=== PATIENT | female | born 1985 | race Caucasian/White ===

== ENCOUNTER 2022-12-20 08:50 | Inpatient (IN) | payer OTHER, SELFPAY ==
[2022-12-20] VITALS (21 sets, daily range): BP systolic 135–153; BP diastolic 67–92; PULSE 87–102; RESP 13–21; TEMP 36.4–36.8; O2SAT 88–98; BMI 46.4; BMI 46.3
--- NOTE | ~2022-12-20 | XR_ITS ---
XR chest 1V portable DATE: 12/23/2022 05:53 INDICATION: Pneumonia TECHNIQUE: Portable upright AP chest on 12/23/2022 at 0537 hours COMPARISON: 12/16/2022 2 CTA chest 12/20/2022 2 view chest FINDINGS: Patchy infiltrates are noted, more prominent in the lower lung zones, especially on the lef t. Normal heart size. No significant pleural effusion is evident. No pneumothorax. IMPRESSION: Patchy bilateral pulmonary infiltrates predominantly in the lower lung zones, left greate r than right Reviewed, dictated and finalized at location A. IMPRESSION: Patchy bilateral pulmonary infiltrates predominantly in the lower l nba zones, left greater than right
--- NOTE | ~2022-12-20 | CT_ITS ---
EXAMINATION: CTA chest PE protocol DATE: 12/20/2022 12:07 CDT INDICATION: Dyspnea. Elevated d-dimer. TECHNIQUE: Computed tomographic angiography (CTA) of the chest was performed with 100 mL Omnipaque-35 0 intravenous contrast. The dose-length product was 1096.44 mGy-cm. Maximum intensity projection 3D-r econstructions of the aorta and other arteries were constructed by the technologist on a separate wor kstation. COMPARISON: None. FINDINGS: Study technically limited for evaluation of pulmonary embolism due to contrast bolus timing . No large central pulmonary embolism. Heart size normal. No significant pleural or pericardial effus ion. Fatty infiltration of the liver. Status post cholecystectomy. There are extensive patchy groundg lass opacities with areas of reticular nodularity particularly in the lower lobes, compatible with pn eumonia. No significant effusion. No pneumothorax. Mild mediastinal lymphadenopathy, likely reactive. IMPRESSION: 1. Extensive patchy groundglass opacities and reticulonodular infiltrates, compatible with pneumonia. Recommend follow-up CT at 6-weeks following appropriate therapy to assess for resolution. 2: Technically limited study for evaluation of pulmonary embolism. No large central pulmonary emboli sm. 3: Thoracic lymphadenopathy, likely reactive. Reviewed, dictated and finalized at location L. IMPRESSION: 1. Extensive patchy groundglass opacities and reticulonodular infiltrates, comp atible with pneumonia. Recommend follow-up CT at 6-weeks following appropriate therapy to assess for resolution. 2: Technically limited study for evaluation of pulmonary embolism. No large ce ntral pulmonary embolism. 3: Thoracic lymphadenopathy, likely reactive.
--- NOTE | ~2022-12-20 | XR_ITS ---
XR chest 2V 12/20/2022 09:44 Indication: Cough and dyspnea. Fever. Procedure: 2 view chest Comparison: No prior studies for comparison. Findings: There is a nodule in the left lower chest. Correlation with CT chest recommended. No focal pneumonia, edema, pleural effusion or pneumothorax. Impression: 1: Left lower lung nodule. Follow-up CT chest recommended. Reviewed, dictated and finalized at location L. Impression: 1: Left lower lung nodule. Follow-up CT chest recommended.
--- NOTE | 2022-12-20 09:19 | ECG_ITS ---
Measurements Intervals [place] Rate: 92 P: 53 IN: 179 QRS: 23 QRSD: 108 T: 34 QT: 364 QTc: 451 Interpretive Statements SINUS RHYTHM NONSPECIFIC T-WAVE ABNORMALITY NO PREVIOUS ECG AVAILABLE FOR COMPARISON Electronically Signed On 12-20-2022 11:01:50 CDT by Donell Sanchez M.D.
--- NOTE | 2022-12-20 09:28 | ED.GENADULT ---
HPI - General Adult General Chief complaint: Shortness of Breath/Dyspnea <Eloy Cunningham PA-C - Last Filed: 12/20/22 18:27> Stated complaint: SOB, hypoxic <Eloy Cunningham PA-C - Last Filed: 12/20/22 18:27> Time Seen by Provider: 12/20/22 09:01 <Eloy Cunningham PA-C - Last Filed: 12/20/22 18:27> Source: patient <KEELEY Sim Last Filed: 12/20/22 18:27> Mode of arrival: ambulatory <Eloy Cunningham PA-C - Last Filed: 12/20/22 18:27> Limitations: no limitations <KEELEY Sim Last Filed: 12/20/22 18:27> History of Present Illness HPI narrative: This is a 37-year-old female who presents to the ED with chief complaint of shortness of breath and cough for the last 3-1/2 weeks and worse today. Patient states that she has been coughing up yellowish phlegm. Denies any hemoptysis. States that her chest feels tight and she has pain when she coughs. Patient reports that she was initially seen by urgent care 3 and half weeks ago and has been on a couple of rounds of steroids and had an initial round of azithromycin. She states her symptoms have only been getting worse since initially being seen. Her PCP referred to sales specialist due to her wheezing. She states she has been doing albuterol treatments 2 times a day with minimal relief. Reports a mild fever of 99.4 this morning. Additionally patient states that she was diagnosed with diabetes about 6 weeks ago. She states that she is not on any diabetic medications as she had difficulties getting in with the adult care manager referred by her PCP. Denies headache, LOC, <KEELEY Sim Last Filed: 12/20/22 18:27> Related Data Home medications: Home Medications Medication Instructions Recorded Confirmed albuterol sulfate 90 mcg/actuation 2 - 4 puff inhalation Q4-6H PRN 12/20/22 12/20/22 aerosol inhaler Shortness Of Breath Or Wheezing citalopram 40 mg tablet 40 mg PO HS 12/20/22 12/20/22 codeine 10 mg-guaifenesin 100 mg/5 5 ml PO PRN Cough 12/20/22 mL oral liquid <Eloy Cunningham PA-C - Last Filed: 12/20/22 18:27> Allergies/adverse reactions: Allergies Allergy/AdvReac Type Severity Reaction Status Date / Time amoxicillin Allergy Rash Verified 12/20/22 15:23 nickel Allergy Rash Verified 12/20/22 15:23 poppyseed oil Allergy Nausea and Verified 12/20/22 15:23 Vomiting <Eloy Cunningham PA-C - Last Filed: 12/20/22 18:27> Review of Systems Review of Systems: All systems as dictated in HPI <Eloy Cunningham PA-C - Last Filed: 12/20/22 18:27> [facility] Social History Social History: Social History Smoking status: Never smoker Second hand tobacco smoke exposure: No Alcohol intake: never Substance use: never Lack of Transportation: No Lack of Food: Sometimes True Current Housing: I Have Housing Concerned About Future Housing: No Difficulty Paying Gas/Electric Bills: YES Difficulty Paying for Meds: No Currently Unemployed: No Education: Associate Degree Difficulty w/ Childcare or Family Care: No Spiritual care concerns: No <Eloy Cunningham PA-C - Last Filed: 12/20/22 18:27> Exam Narrative: GENERAL: Well-appearing, well-nourished, and in no acute distress. HEAD: Normocephalic, atraumatic. EYES: PERRLA and EOMI. ENT: Nares clear, no rhinorrhea or epistaxis. Mucous membranes moist. Oropharynx without tonsillar hypertrophy exudate or other lesions. Hoarse voice. NECK: Supple. No adenopathy or masses. CHEST: Sats 90% on room air. Speaks in 3-4 word sentences. No accessory muscle use. Coughing during exam. Coarse crackles/rhonchi heard bilaterally. HEART: Regular rate and rhythm. No murmur heard. Normal peripheral pulses. ABDOMEN: Soft, nontender, nondistended, normal active bowel sounds. MSK: Normal range of motion. No edema. SKIN: Warm, dry, no rash. NEURO: Alert and oriented x3. No focal deficits. PSYCH: Normal mood and affect. <Eloy Cunningham
[2022-12-20 09:30] LABS: Basophils Absolute Auto 0.1 K/mm3 (0.0-0.1); Basophils Percent Auto 0.4 % (0.2-1.2); Eosinophils Absolute Auto 0.2 K/mm3 (0-0.3); Eosinophils Percent Auto 1.2 % (0-4.4); Hematocrit 37.8 % (37.0-47.0); Hemoglobin 11.9 g/dL (12.0-15.0); Immature Granulocyte Absolute 0.05 K/mm3 (0.00-0.031); Immature Granulocyte Percent A 0.4 % (0-0.5); Lymphocytes Absolute Auto 2.45 K/mm3 (0.9-3.2); Lymphocytes Percent Auto 17.7 % (18.3-44.2); Mean Corpuscular HGB Conc 31.5 g/dl (32-36); Mean Corpuscular Hemoglobin 28.1 pg (26-34); Mean Corpuscular Volume 89.4 fl (80-100); Mean Platelet Volume 9.6 fl (7.4-10.4); Monocytes Absolute Auto 0.7 K/mm3 (0.1-0.6); Monocytes Percent Auto 5.4 % (2.6-8.5); Neutrophils Absolute Auto 10.4 K/mm3 (1.3-6.7); Neutrophils Percent Auto 74.9 % (45.5-73.1); Platelet Count Result 294 k/mm3 (150-375); Red Blood Count 4.23 M/mm3 (4.2-5.4); Red Cell Distribution Width 13.9 % (11.5-14.5); White Blood Count 13.8 K/mm3 (4.5-10.0)
[2022-12-20 09:40] LABS: Alanine Aminotransferase 47 U/L (6-35); Albumin Level 3.8 g/dL (3.5-5.1); Alkaline Phosphatase 162 U/L (38-126); Anion Gap 6 mmol/L (8-16); Aspartate Amino Transferase 60 U/L (14-36); Bilirubin,Total 0.5 mg/dL (0.2-1.3); Blood Urea Nitrogen 7 mg/dL (7-17); Calcium 8.2 mg/dL (8.4-10.2); Carbon Dioxide 29 mmol/L (22-30); Chloride 98 mmol/L (98-107); Estimated CRCL calculation 169 ml/min; Estimated Glomerular Filt Rate > 60; Glucose 228 mg/dL (65-110); Magnesium 1.5 mg/dL (1.6-2.3); Potassium 3.4 mmol/L (3.4-5.0); Prothrombin Time 13.6 Seconds (11.1-14.7); Sodium 133 mmol/L (137-145)
[2022-12-20 09:41] LABS: Partial Thromboplastin Time 30.9 SECONDS (22.3-36.8)
[2022-12-20 09:45] LABS: D Dimer 0.75 ug/mL (<0.48)
[2022-12-20 09:52] LABS: Troponin I < 0.012 ng/mL (0.000-0.034)
[2022-12-20] MEDS: MAGNESIUM SULF 1 GM/D5W 100 ML 1 GM/100 ML BAG IVPB (10:05)
[2022-12-20 10:55] LABS: Appearance Urine Cloudy (Clear); Bacteria Urine None Seen /hpf; Bilirubin Urine Negative (Negative); Blood Urine Negative (Negative); Color Urine Dark Yellow (Yellow); Glucose Urine UA Negative (Negative); Ketones Urine Negative (Negative); Leukocyte Esterase Ur Trace LEU/UL (Negative); Nitrate Urine Negative (Negative); Non Pathogenic Casts 0-2; Protein Urine Trace mg/dL (Negative); RBC Urine 0-2 /hpf (0-2); Specific Grav Ur 1.024 (1.001-1.035); Squamous Epithelial Cell Urine Few /hpf (Few); Urobilinogen Urine 0.2 mg/dL (<2.0)
[2022-12-20 11:06] LABS: Add Urine Microscopic? YES
[2022-12-20 11:39] LABS: Influenza A QL RT-PCR Negative (Negative); Influenza B QL RT-PCR Negative (Negative); RSV RNA, RT-PCR Negative (Negative); SARS-CoV-2 RNA PCR Negative (Negative)
[2022-12-20] MEDS: ALBUTEROL SULFATE NEB 2.5 MG/3 ML INH INHALATION ×3 (13:02→20:05)
--- NOTE | 2022-12-20 14:22 | ADMGEN ---
This patient, Marge García, was admitted to Medical Room 252-. Patient/family oriented to hospital policies and general routines including ID bracelet, bed and alarms, visiting hours, pain management, procedures, bathroom and other care routines, personal items, smoking policy, room service/diet, and visiting hours. Information on how to activate the Rapid Response Team has been discussed. Patient/Family are encouraged to report perceived risks to care and to ask questions if they do not understand what they are told or what they should do.
[2022-12-20 14:30] LABS: Hemoglobin A1C 8.2 % (<5.7)
[2022-12-20] MEDS: SODIUM CHLORIDE 0.9% IV 1,000 ML 125 ML IV CONT (15:30)
[2022-12-20] MEDS: levoFLOXacin 750 MG/D5W 150 ML 750 MG/150 ML BAG 100 MG IVPB (15:31)
[2022-12-20] MEDS: methylPREDNISolone SOD SUCC 40 MG VIAL IV PUSH (15:31)
--- NOTE | 2022-12-20 16:02 | PM.IMHP ---
H&P: HPI History of Present Illness Date/Time: 12/20/22 12:50 Chief Complaint: Cough and shortness of breath. Narrative: This is a very pleasant 37-year-old female with depression, anxiety, and very recent diagnosis of diabetes who presented to the emergency department via private vehicle from home for evaluation of cough and shortness of breath. The patient provides the following history. She has not felt well for upwards of 3.5 weeks with a productive cough and increasing shortness of breath on lesser and lesser exertion. She was evaluated urgent care not long after her symptoms started and she was prescribed a round of steroids and a Z-Luigi. She did not finish her antibiotic but she did finish the steroids without much benefit. She saw her primary care provider about a week ago and was prescribed another round of steroids and albuterol inhaler. She was also referred to the pulmonology group due to concerns for underlying asthma or the like. Unfortunately the 2nd round of steroids have not helped and she has continued wheezing and cough which is productive of copious amounts yellow phlegm. Delsym and Mucinex provide her with only mild symptom relief. Her appetite has also been poor and she has had some episodes of nausea and vomiting the last several days. Her and 1 of her children have mild coughs but her symptoms are not near severe. She has had some sweats but denies fever. She has discomfort around the ribs due to coughing but she denies overt chest chest pain or pleuritic pain. She has not had diarrhea. No recent travel or known sick contacts. She denies dysphagia and concerns for aspiration. She has seasonal allergies and it is not unusual for her to developed cold-like symptoms or even get pneumonia this time of year. She has never been diagnosed with asthma with the like. She and her previously run to the home that had black mold in the ceiling above there bed but they have been in their new home for the past 1 year. No chemical or animal exposure aside from a cat and dog which they have been home. She was afebrile on arrival to the emergency department with stable vital signs. Preliminary workup was significant for leukocytosis with a WBC count of 13.8, D-dimer 0.75, glucose 228, mildly elevated LFTs, and magnesium of 1.5. She tested negative for influenza, RSV, and COVID. Chest CTA showed extensive patchy ground-glass opacities and reticular nodule infiltrates compatible with pneumonia. She received a dose of levofloxacin and she is being admitted in this setting for further treatment. Review of Systems Review of Systems: Twelve systems were reviewed and are negative except for as per HPI. [facility] Past Medical History Medical History (Updated 12/20/22 @ 22:14 by Zuleika Moses PA-C) Depression with anxiety Type 2 diabetes mellitus Surgical History Surgical History (Updated 12/20/22 @ 22:11 by Zuleika Moses PA-C) History of cholecystectomy (01/2017) History of dilation and curettage (05/2018) Family History Family History Other Family history non-contributory Social History Social History (Updated 12/20/22 @ 22:12 by Zuleika Moses PA-C) Social History: Surrogate medical decision maker: Ramy García, spouse. Code status: Full code. Smoking status: Never smoker Second hand tobacco smoke exposure: No Alcohol intake: never Substance use: never Lack of Transportation: No Lack of Food: Sometimes True Current Housing: I Have Housing Concerned About Future Housing: No Difficulty Paying Gas/Electric Bills: YES Difficulty Paying for Meds: No Currently Unemployed: No Education: Associate Degree Difficulty w/ Childcare or Family Care: No Additional living arrangements comments: Lives with spouse and 2 young children ages 4 and 7. Additional occupation/education comments: Works at a [employer]. Spiritual care concern
[2022-12-20] MEDS: IPRATROPIUM BR 0.02% INH SOLN 0.5 MG/2.5 ML VIAL INHALATION ×2 (16:20→20:05)
[2022-12-20 17:20] LABS: Glucose Point of Care 309 mg/dl (65-105)
[2022-12-20] MEDS: AZITHROMYCIN 500 MG/NS 250 ML 500 MG/250 ML BAG 250 MG IVPB (17:22)
[2022-12-20] MEDS: INSULIN ASPART (*BKC) 100 UNITS/ML SUB-Q ×2 (17:25→21:19)
--- NOTE | 2022-12-20 18:20 | PC.NURSE ---
On 12/20/22, the Licence pending nurse, Susy Farrell, provided care and completed [facility] documentation on this patient. I have reviewed the Licence pending nurse's documentation and agree with the findings.
[2022-12-20 20:05] LABS: Glucose Point of Care 304 mg/dl (65-105)
[2022-12-20] MEDS: guaiFENesin 12 HR 600 MG TABCR PO (21:20)
[2022-12-20] MEDS: ENOXAPARIN 40 MG/0.4 ML SYRINGE SUB-Q (21:21)
[2022-12-21] VITALS (19 sets, daily range): BP systolic 131–142; BP diastolic 69–76; PULSE 79–98; RESP 16–20; TEMP 36.3–36.6; O2SAT 93–95
[2022-12-21] MEDS: ALBUTEROL SULFATE NEB 2.5 MG/3 ML INH INHALATION ×6 (00:38→20:00)
[2022-12-21] MEDS: IPRATROPIUM BR 0.02% INH SOLN 0.5 MG/2.5 ML VIAL INHALATION ×6 (00:38→20:00)
[2022-12-21] MEDS: guaiFENesin/DEXTROMETHORPHAN 10 ML UDC PO (03:14)
[2022-12-21] MEDS: SODIUM CHLORIDE 0.9% IV 1,000 ML 125 ML IV CONT (03:57)
[2022-12-21 05:31] LABS: Basophils Percent Auto 0.2 % (0.2-1.2); Hematocrit 35.8 % (37.0-47.0); Hemoglobin 11.1 g/dL (12.0-15.0); Immature Granulocyte Absolute 0.06 K/mm3 (0.00-0.031); Immature Granulocyte Percent A 0.5 % (0-0.5); Lymphocytes Absolute Auto 1.48 K/mm3 (0.9-3.2); Lymphocytes Percent Auto 13.5 % (18.3-44.2); Mean Corpuscular Hemoglobin 27.9 pg (26-34); Mean Corpuscular Volume 89.9 fl (80-100); Mean Platelet Volume 9.9 fl (7.4-10.4); Monocytes Absolute Auto 0.3 K/mm3 (0.1-0.6); Monocytes Percent Auto 2.5 % (2.6-8.5); Neutrophils Absolute Auto 9.1 K/mm3 (1.3-6.7); Neutrophils Percent Auto 83.3 % (45.5-73.1); Platelet Count Result 273 k/mm3 (150-375); Red Blood Count 3.98 M/mm3 (4.2-5.4); Red Cell Distribution Width 13.6 % (11.5-14.5)
[2022-12-21 05:37] LABS: Alanine Aminotransferase 42 U/L (6-35); Albumin Level 3.4 g/dL (3.5-5.1); Alkaline Phosphatase 114 U/L (38-126); Anion Gap 0 mmol/L (8-16); Aspartate Amino Transferase 39 U/L (14-36); Bilirubin,Total 0.5 mg/dL (0.2-1.3); Blood Urea Nitrogen 5 mg/dL (7-17); Calcium 8.1 mg/dL (8.4-10.2); Carbon Dioxide 31 mmol/L (22-30); Chloride 100 mmol/L (98-107); Estimated CRCL calculation 204 ml/min; Estimated Glomerular Filt Rate > 60; Glucose 305 mg/dL (65-110); Magnesium 2.2 mg/dL (1.6-2.3); Potassium 3.9 mmol/L (3.4-5.0); Sodium 131 mmol/L (137-145)
--- NOTE | 2022-12-21 07:46 | PM.IMPN ---
Progress Note: A&P Assessment and Plan (1) Community acquired pneumonia: Qualifiers: Laterality: unspecified laterality Qualified Code(s): J18.9 - Pneumonia, unspecified organism Code(s): J18.9 - Pneumonia, unspecified organism Status: Acute Assessment and Plan: CT with patchy ground glass opacities and reticulonodular infiltrates. -started on azithromycin and Rocephin -sputum culture pending -afebrile. Requiring 2 L NC, saturations 94%. -Wheezing present. PO prednisone ordered starting today after 1 round of Solu-medrol on admission -Albuterol nebulizers scheduled Q 4 hours -IS, pep, and CPT ordered -acute respiratory panel negative for flu, RSV, COVID -consult pulmonology and recommendations are appreciated (2) Type 2 diabetes mellitus: Qualifiers: Diabetes mellitus long term care administrator insulin use: without long term care administrator use Code(s): E11.9 - Type 2 diabetes mellitus without complications Status: Acute Assessment and Plan: Hemoglobin A1c 8.2 -accu checks -sliding scale insulin -currently not on home regimen Subjective Date/time seen: 12/21/22 07:46 Interval history: This is a 37-year-old female with a PMH of depression, anxiety, and recently diagnosed with DM. She presents with a productive cough and increasing shortness of breath for the last 3.5 weeks. She has recently received a z-kev and two rounds of steroids. Her chest CTA showed extensive patchy ground-glass opacities and reticular nodule infiltrates compatible with pneumonia. She is being admitted for pneumonia with treatment of antibiotics. Interval history: 12/21: Patient is seen today resting in bed with her at the bedside. She is on 2 L nasal cannula and does not appear in acute respiratory distress. She does appear like she is not feeling well. She says that she has shortness of breath with exertion, productive cough, and night sweats. She denies headache, dizziness, nausea, vomiting, diarrhea, constipation. Initial respiratory panel was negative for viral agents. Repeat panel today and will also obtain a repeat sputum sample for AFB culture. Review of Systems Review of Systems: All systems reviewed & are unremarkable except as noted in HPI and below Exam Narrative: General: well-nourished, ill-appearing 37-year-old female, sitting up in bed, comfortable, NARD Neuro: awake, alert and oriented x4, speech clear, no focal neuro deficits noted HEENMT: normocephalic, atraumatic, EOMI, sclerae anicteric, moist oral mucosa, facial flushing Respiratory: coarse with rhonchi bilaterally with expiratory wheeze, nonlabored breathing Cardio: regular rate, regular rhythm with S1-S2 Abdomen: nondistended, normoactive bowel sounds, soft, nontender to palpation Extremities: no edema, erythema, or tenderness to palpation, DP pulses 2+ bilaterally Skin: no rashes or lesions, warm and dry, facial flushing Psych: appropriate mood and affect, judgment and insight intact Objective Data Vital Signs Vital Signs: Vital Signs - 24 hr 12/20/22 08:56 12/20/22 09:11 12/20/22 09:05 Temperature 98.1 F Pulse Rate 96 Respiratory Rate 16 Blood Pressure 147/67 H Pulse Oximetry 91 90 91 Oxygen Delivery Room Air Room Air Oxygen Flow Rate Fraction of Inspired Oxygen 12/20/22 09:07 12/20/22 09:15 12/20/22 09:17 Temperature Pulse Rate 102 H 95 89 Respiratory Rate 20 21 H 13 Blood Pressure 152/90 H 143/88 H Pulse Oximetry 93 90 91 Oxygen Delivery Oxygen Flow Rate Fraction of Inspired Oxygen 12/20/22 09:30 12/20/22 09:32 12/20/22 10:06 Temperature Pulse Rate 96 100 100 Respiratory Rate 20 19 18 Blood Pressure 143/68 H Pulse Oximetry 92 Oxygen Delivery Oxygen Flow Rate Fraction of Inspired Oxygen 12/20/22 13:02 12/20/22 13:09 12/20/22 13:00 Temperature Pulse Rate 98 98 Respiratory Rate 15 16 Blood Pressure 137/92 H Pulse Ox
--- NOTE | 2022-12-21 08:36 | PM.CNPUL ---
Assessment and Plan Assessment and plan (1) Community acquired pneumonia: Code(s): J18.9 - Pneumonia, unspecified organism Status: Acute Assessment and Plan: This 37-year-old female presented with a 3 week history of cough sputum production wheezing shortness of breath. Chest imaging studies showed extensive lung infiltrates consisting of mostly centrilobular nodules and tree-in-bud pattern and rare patchy infiltrates. These findings in conjunction with the patient's clinical history suggest lower respiratory tract infection possibly infectious bronchiolitis, due to viral bacterial or atypical organisms. In view of similar illness in family members this could be due to mycoplasma pneumonia. Differential diagnosis also includes atypical mycobacterial infection especially with history of chronic night sweats and evidence of bronchial wall thickening on chest CT. Patient seems to be improving on current regimen of ceftriaxone, azithromycin, short-acting bronchodilators and oral steroids. Plan: Will continue with current antibiotic regimen, short-acting bronchodilators oral steroids and DVT prophylaxis. Repeat PCR testing for viral agents pending. Will obtain sputum for AFB culture as atypical mycobacterial infection needs to be excluded. Patient will need to have outpatient studies to exclude intermittent asthma. (2) Depression with anxiety: Code(s): F41.8 - Other specified anxiety disorders Status: Acute History of Present Illness History of Present Illness Consult date: 12/21/22 Chief complaint: community acquired pneumonia,hypoxia Narrative: This 37-year-old female presented with a 3 week history of cough, chest congestion and shortness of breath. The patient was in her usual state of health until approximately 3 weeks ago when she started to have chest congestion cough productive of yellow phlegm. Around the same time her children were sick with similar respiratory illness. The patient was initially treated with antibiotics after she was evaluated at a local urgent care center. The patient did not improve and was then evaluated by her primary care provider who started her on prednisone tapering regimen and albuterol treatments. She also noticed some shortness of breath and and drop in her oxyhemoglobin saturation down to 88%. Patient denied having fever chills hemoptysis or chest pain. Upon questioning she admitted having night sweats for the last 2 years. Past medical history is also significant for mild intermittent asthma based on frequent symptoms such as wheezing for which she was using p.r.n. rescue inhalers. She never had pulmonary function testing or chest x-rays. Recently she was diagnosed with diabetes mellitus. She also has history of anxiety/depression. On evaluation in the emergency room she was found to have extensive infiltrates on chest CT consisting of centrilobular nodules and tree-in-bud pattern. In addition she had a confluence of infiltrates especially in the left lower lobe. Segmental bronchi appeared with thickened wall. she had no evidence of pulmonary embolism. Patient was started on ceftriaxone and Zithromax, oral steroids and nebulized short-acting bronchodilators. This morning she breathes better. She has a dry cough but no sputum production. Review of Systems Review of Systems: Patient reports no significant weight changes. She has no orthopnea. She has no chest pain. She has had a history of intermittent wheezing approximately 2 to 3 times a year for which she was using rescue inhalers. She attributed the wheezing to possible allergies. She has had soft stools. She has no urinary complaints. She has no joint pain. She has an eczematous rash on dorsum of the right foot. She has history of anxiety depression. [facility] Past Medical History Medical History (Updated 12/20/22 @ 22:14 by Zuleika Moses PA-C) Depression with anxiety Type 2 diabetes mellitus Surgic
[2022-12-21 08:47] LABS: Glucose Point of Care 243 mg/dl (65-105)
[2022-12-21] MEDS: ENOXAPARIN 40 MG/0.4 ML SYRINGE SUB-Q ×2 (08:57→21:18)
[2022-12-21] MEDS: guaiFENesin 12 HR 600 MG TABCR PO ×2 (08:57→21:18)
[2022-12-21] MEDS: INSULIN ASPART (*BKC) 100 UNITS/ML SUB-Q ×5 (08:57→21:20)
[2022-12-21] MEDS: predniSONE 20 MG TABLET 40 MG PO (08:57)
[2022-12-21 12:03] LABS: Glucose Point of Care 279 mg/dl (65-105)
[2022-12-21] MEDS: SODIUM CHLORIDE 0.9% IV 1,000 ML 75 ML IV CONT (12:22)
[2022-12-21] MEDS: AZITHROMYCIN 500 MG/NS 250 ML 500 MG/250 ML BAG 250 MG IVPB (13:44)
[2022-12-21 17:12] LABS: Glucose Point of Care 366 mg/dl (65-105)
[2022-12-21 19:35] LABS: Influenza A QL RT-PCR Negative (Negative); Influenza B QL RT-PCR Negative (Negative); RSV RNA, RT-PCR Negative (Negative); SARS-CoV-2 RNA PCR Negative (Negative)
[2022-12-21] MEDS: CITALOPRAM HYDROBROMIDE 20 MG TABLET 40 MG PO (21:18)
[2022-12-21] MEDS: INSULIN GLARGINE (*BKC) 100 UNITS/ML 10 UNITS SUB-Q (21:19)
[2022-12-21 21:35] LABS: Glucose Point of Care 255 mg/dl (65-105)
[2022-12-22] VITALS (16 sets, daily range): BP systolic 145–152; BP diastolic 76–89; PULSE 73–116; RESP 18–20; TEMP 36.6; O2SAT 91–96
[2022-12-22] MEDS: SODIUM CHLORIDE 0.9% IV 1,000 ML 75 ML IV CONT (03:47)
[2022-12-22] MEDS: SODIUM CHLOR 3% 15 ML NEB (RESPIRATORY THERAPY) 6 ML INHALATION (04:58)
[2022-12-22] MEDS: ALBUTEROL SULFATE NEB 2.5 MG/3 ML INH INHALATION ×6 (04:58→20:36)
[2022-12-22] MEDS: IPRATROPIUM BR 0.02% INH SOLN 0.5 MG/2.5 ML VIAL INHALATION ×6 (04:58→20:36)
--- NOTE | 2022-12-22 07:49 | PM.IMPN ---
Progress Note: A&P Assessment and Plan (1) Community acquired pneumonia: Qualifiers: Laterality: unspecified laterality Qualified Code(s): J18.9 - Pneumonia, unspecified organism Code(s): J18.9 - Pneumonia, unspecified organism Status: Acute Assessment and Plan: CT with patchy ground glass opacities and reticulonodular infiltrates. -started on azithromycin and Rocephin -sputum culture pending, awaiting AFB as well -afebrile, off oxygen -Wheezing resolved, PO prednisone ordered starting today after 1 round of Solu-medrol on admission -Albuterol nebulizers scheduled Q 4 hours -IS, pep, and CPT ordered -acute respiratory panel negative for flu, RSV, COVID -consult pulmonology and recommendations are appreciated Urine culture growing enterococcus species but U/A did not appear infected and patient has no complaints of UTI. Regardless, patient is being covered with Rocephin for pneumonia. (2) Type 2 diabetes mellitus: Qualifiers: Diabetes mellitus intermediate card tender insulin use: without intermediate card tender use Code(s): E11.9 - Type 2 diabetes mellitus without complications Status: Acute Assessment and Plan: Hemoglobin A1c 8.2 -accu checks -sliding scale insulin increased to moderate regimen -added 10 units of lantus at HS. Fasting glucose on am labs was 133. -currently not on home regimen Plan continue IV antibiotics await AFB culture Appreciate guidance from pulmonology Subjective Date/time seen: 12/22/22 07:49 Interval history: This is a 37-year-old female with a PMH of depression, anxiety, and recently diagnosed with DM. She presents with a productive cough and increasing shortness of breath for the last 3.5 weeks. She has recently received a z-kev and two rounds of steroids. Her chest CTA showed extensive patchy ground-glass opacities and reticular nodule infiltrates compatible with pneumonia. She is being admitted for pneumonia with treatment of antibiotics. Interval history: 12/21: Patient is seen today resting in bed with her at the bedside. She is on 2 L nasal cannula and does not appear in acute respiratory distress. She does appear like she is not feeling well. She says that she has shortness of breath with exertion, productive cough, and night sweats. She denies headache, dizziness, nausea, vomiting, diarrhea, constipation. Initial respiratory panel was negative for viral agents. Repeat panel today and will also obtain a repeat sputum sample for AFB culture. 12/22: Mildly improved since yesterday. She is no longer requiring oxygen. Her shortness of breath is less but she still has a cough with poor production of sputum. No longer wheezing. Her WBC count remains at 11.3 but she has been afebrile. Review of Systems Review of Systems: All systems reviewed & are unremarkable except as noted in HPI and below Exam Narrative: General: well-nourished, ill-appearing 37-year-old female, sitting up in bed, comfortable, NARD Neuro: awake, alert and oriented x4, speech clear, no focal neuro deficits noted HEENMT: normocephalic, atraumatic, EOMI, sclerae anicteric, moist oral mucosa, facial flushing Respiratory: coarse with rhonchi bilaterally without expiratory wheeze, nonlabored breathing, room air Cardio: regular rate, regular rhythm with S1-S2 Abdomen: nondistended, normoactive bowel sounds, soft, nontender to palpation Extremities: no edema, erythema, or tenderness to palpation, DP pulses 2+ bilaterally Skin: no rashes or lesions, warm and dry, facial flushing Psych: appropriate mood and affect, judgment and insight intact Objective Data Vital Signs Vital Signs: Vital Signs - 24 hr 12/21/22 09:00 12/21/22 09:20 12/21/22 09:19 Temperature Pulse Rate 83 83 Respiratory Rate 16 16 Blood Pressure Pulse Oximetry 94 95 Oxygen Delivery Nasal Cannula Oxygen Flow Rate 2 Fraction of Inspired Oxygen 28 12/21/22 09:26
[2022-12-22 08:21] LABS: Glucose Point of Care 133 mg/dl (65-105)
[2022-12-22 08:50] LABS: Basophils Absolute Auto 0.1 K/mm3 (0.0-0.1); Basophils Percent Auto 0.4 % (0.2-1.2); Eosinophils Absolute Auto 0.1 K/mm3 (0-0.3); Eosinophils Percent Auto 0.8 % (0-4.4); Hematocrit 36.9 % (37.0-47.0); Hemoglobin 11.2 g/dL (12.0-15.0); Immature Granulocyte Absolute 0.08 K/mm3 (0.00-0.031); Immature Granulocyte Percent A 0.7 % (0-0.5); Lymphocytes Absolute Auto 3.36 K/mm3 (0.9-3.2); Lymphocytes Percent Auto 29.7 % (18.3-44.2); Mean Corpuscular HGB Conc 30.4 g/dl (32-36); Mean Corpuscular Hemoglobin 27.7 pg (26-34); Mean Corpuscular Volume 91.1 fl (80-100); Mean Platelet Volume 9.3 fl (7.4-10.4); Monocytes Absolute Auto 0.5 K/mm3 (0.1-0.6); Monocytes Percent Auto 4.1 % (2.6-8.5); Neutrophils Absolute Auto 7.3 K/mm3 (1.3-6.7); Neutrophils Percent Auto 64.3 % (45.5-73.1); Platelet Count Result 309 k/mm3 (150-375); Red Blood Count 4.05 M/mm3 (4.2-5.4); White Blood Count 11.3 K/mm3 (4.5-10.0)
[2022-12-22] MEDS: guaiFENesin 12 HR 600 MG TABCR PO ×2 (08:54→21:00)
[2022-12-22] MEDS: predniSONE 20 MG TABLET 40 MG PO (08:54)
[2022-12-22] MEDS: ENOXAPARIN 40 MG/0.4 ML SYRINGE SUB-Q ×2 (08:54→21:00)
[2022-12-22 09:01] LABS: Anion Gap 3 mmol/L (8-16); Blood Urea Nitrogen 7 mg/dL (7-17); Calcium 8.4 mg/dL (8.4-10.2); Carbon Dioxide 27 mmol/L (22-30); Chloride 103 mmol/L (98-107); Estimated CRCL calculation 168 ml/min; Estimated Glomerular Filt Rate > 60; Glucose 117 mg/dL (65-110); Potassium 3.2 mmol/L (3.4-5.0); Sodium 133 mmol/L (137-145)
--- NOTE | 2022-12-22 11:23 | PM.PNPUL ---
Progress Note: A&P Assessment and Plan (1) Community acquired pneumonia: Qualifiers: Laterality: unspecified laterality Qualified Code(s): J18.9 - Pneumonia, unspecified organism Code(s): J18.9 - Pneumonia, unspecified organism Status: Acute Assessment and Plan: Respiratory status slowly improving. Patient currently on room air with less cough and less sputum production. On physical exam, no longer expiratory wheezing. Plan: continue with current regimen, out of bed to chair. Repeat chest x-ray in a.m. anticipate DC home soon. 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 Less coughing less wheezing today. Currently on room air. Afebrile. Review of Systems Review of Systems: All systems reviewed & are unremarkable except as noted in HPI and below (HPI) Exam Narrative: GENERAL APPEARANCE: Well developed, well nourished, alert and cooperative, and appears to be in no acute distress while on supplemental oxygen via nasal cannula SKIN: Inspection of the skin eczematous rash right foot HEENT: Sclerae anicteric and conjunctivae pink and moist. Extraocular movements were intact and pupils were equal, round, and reactive to light. The oral mucosa, hard and soft palate, tongue and posterior pharynx were normal. NECK: Supple. There was no thyroid enlargement, and no tenderness, or masses were felt. CHEST: Normal AP diameter and normal contour without any kyphoscoliosis. LUNGS: Auscultation of the lungs revealed mild expiratory wheezing bilaterally CARDIAC: There was a regular rate and rhythm without any murmurs, gallops, rubs. ABDOMEN: Soft and nontender with normal bowel sounds. There was no organomegaly. LYMPH NODES: No lymphadenopathy was appreciated in the neck. EXTREMITIES: No cyanosis, clubbing or edema. NEUROLOGIC: Alert and oriented x 3. Normal affect. Objective Data Vital Signs Vital Signs: Vital Signs - 24 hr 12/21/22 14:20 12/21/22 13:55 12/21/22 14:05 Temperature 36.3 C L Pulse Rate 96 87 90 Respiratory Rate 18 16 16 Blood Pressure 142/76 H Pulse Oximetry 93 Oxygen Delivery Fraction of Inspired Oxygen 12/21/22 16:23 12/21/22 18:00 12/21/22 18:00 Temperature Pulse Rate 79 Respiratory Rate 16 Blood Pressure Pulse Oximetry 94 93 Oxygen Delivery Room Air Room Air Fraction of Inspired Oxygen 12/21/22 19:40 12/21/22 20:00 12/21/22 20:52 Temperature 36.6 C Pulse Rate 93 88 88 Respiratory Rate 20 16 Blood Pressure 140/73 Pulse Oximetry 94 93 Oxygen Delivery Room Air Fraction of Inspired Oxygen 21 12/21/22 20:10 12/22/22 00:01 12/22/22 00:15 Temperature Pulse Rate 85 116 H 105 H Respiratory Rate 16 18 18 Blood Pressure Pulse Oximetry Oxygen Delivery Fraction of Inspired Oxygen 12/21/22 21:10 12/22/22 04:30 12/22/22 04:58 Temperature 36.6 C Pulse Rate 77 75 Respiratory Rate 20 18 Blood Pressure 152/89 H Pulse Oximetry 91 Oxygen Delivery Room Air Fraction of Inspired Oxygen 12/22/22 05:17 12/22/22 09:00 12/22/22 09:00 Temperature Pulse Rate 79 79 Respiratory Rate 18 18 Blood Pressure Pulse Oximetry 96 Oxygen Delivery Room Air Fraction of Inspired Oxygen 12/22/22 09:25 Temperature Pulse Rate 82 Respiratory Rate 18 Blood Pressure Pulse Oximetry Oxygen Delivery Fraction of Inspired Oxygen Intake/Output Intake/Output: Intake & Output 12/19/22 12/20/22 12/21/22 12/22/22
[2022-12-22 12:15] LABS: Glucose Point of Care 211 mg/dl (65-105)
[2022-12-22] MEDS: INSULIN ASPART (*BKC) 100 UNITS/ML SUB-Q ×3 (12:24→21:02)
[2022-12-22] MEDS: POTASSIUM CHLORIDE 20 MEQ ER TABLET 40 MEQ PO (13:17)
[2022-12-22] MEDS: AZITHROMYCIN 500 MG/NS 250 ML 500 MG/250 ML BAG 250 MG IVPB (14:13)
[2022-12-22 17:06] LABS: Glucose Point of Care 303 mg/dl (65-105)
[2022-12-22 17:59] LABS: Glucose Point of Care 317 mg/dl (65-105)
[2022-12-22 20:41] LABS: Glucose Point of Care 215 mg/dl (65-105)
[2022-12-22] MEDS: CITALOPRAM HYDROBROMIDE 20 MG TABLET 40 MG PO (21:00)
[2022-12-22] MEDS: INSULIN GLARGINE (*BKC) 100 UNITS/ML 20 UNITS SUB-Q (21:02)
[2022-12-23] VITALS (10 sets, daily range): BP systolic 134; BP diastolic 79; PULSE 80–93; RESP 16–19; TEMP 36.6; O2SAT 90–92
[2022-12-23] MEDS: IPRATROPIUM BR 0.02% INH SOLN 0.5 MG/2.5 ML VIAL INHALATION ×4 (00:37→12:22)
[2022-12-23] MEDS: ALBUTEROL SULFATE NEB 2.5 MG/3 ML INH INHALATION ×4 (00:38→12:22)
[2022-12-23] MEDS: SODIUM CHLOR 3% 15 ML NEB (RESPIRATORY THERAPY) 6 ML INHALATION (04:47)
[2022-12-23 04:51] LABS: Basophils Percent Auto 0.4 % (0.2-1.2); Eosinophils Absolute Auto 0.1 K/mm3 (0-0.3); Eosinophils Percent Auto 0.8 % (0-4.4); Hematocrit 34.9 % (37.0-47.0); Hemoglobin 10.8 g/dL (12.0-15.0); Immature Granulocyte Absolute 0.13 K/mm3 (0.00-0.031); Immature Granulocyte Percent A 1.4 % (0-0.5); Lymphocytes Percent Auto 34.6 % (18.3-44.2); Mean Corpuscular HGB Conc 30.9 g/dl (32-36); Mean Corpuscular Hemoglobin 28.1 pg (26-34); Mean Corpuscular Volume 90.6 fl (80-100); Mean Platelet Volume 9.3 fl (7.4-10.4); Monocytes Absolute Auto 0.5 K/mm3 (0.1-0.6); Neutrophils Absolute Auto 5.5 K/mm3 (1.3-6.7); Neutrophils Percent Auto 57.8 % (45.5-73.1); Platelet Count Result 289 k/mm3 (150-375); Red Blood Count 3.85 M/mm3 (4.2-5.4); Red Cell Distribution Width 13.9 % (11.5-14.5); White Blood Count 9.5 K/mm3 (4.5-10.0)
[2022-12-23 05:02] LABS: Alanine Aminotransferase 56 U/L (6-35); Albumin Level 3.1 g/dL (3.5-5.1); Alkaline Phosphatase 93 U/L (38-126); Anion Gap 0 mmol/L (8-16); Aspartate Amino Transferase 56 U/L (14-36); Bilirubin,Total 0.3 mg/dL (0.2-1.3); Blood Urea Nitrogen 8 mg/dL (7-17); Calcium 8.4 mg/dL (8.4-10.2); Carbon Dioxide 30 mmol/L (22-30); Chloride 104 mmol/L (98-107); Estimated CRCL calculation 168 ml/min; Estimated Glomerular Filt Rate > 60; Glucose 125 mg/dL (65-110); Potassium 3.3 mmol/L (3.4-5.0); Sodium 134 mmol/L (137-145)
--- NOTE | 2022-12-23 06:38 | PM.IMPN ---
Progress Note: A&P Assessment and Plan (1) Community acquired pneumonia: Qualifiers: Laterality: unspecified laterality Qualified Code(s): J18.9 - Pneumonia, unspecified organism Code(s): J18.9 - Pneumonia, unspecified organism Status: Acute Assessment and Plan: CT with patchy ground glass opacities and reticulonodular infiltrates. -started on azithromycin and Rocephin -sputum culture pending, awaiting AFB as well -afebrile, off oxygen -Wheezing resolved, PO prednisone ordered starting today after 1 round of Solu-medrol on admission -Albuterol nebulizers scheduled Q 4 hours -IS, pep, and CPT ordered -acute respiratory panel negative for flu, RSV, COVID -Leukocytosis has resolved -consult pulmonology and recommendations are appreciated Urine culture growing enterococcus species but U/A did not appear infected and patient has no complaints of UTI. Regardless, patient is being covered with Rocephin for pneumonia. 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 Will increase bedtime dosing of lantus to 20 units -currently not on home regimen Plan De-escalate antibiotics today await AFB culture Appreciate guidance from pulmonology Subjective Date/time seen: 12/23/22 06:38 Interval history: This is a 37-year-old female with a PMH of depression, anxiety, and recently diagnosed with DM. She presents with a productive cough and increasing shortness of breath for the last 3.5 weeks. She has recently received a z-kev and two rounds of steroids. Her chest CTA showed extensive patchy ground-glass opacities and reticular nodule infiltrates compatible with pneumonia. She is being admitted for pneumonia with treatment of antibiotics. Interval history: 12/21: Patient is seen today resting in bed with her at the bedside. She is on 2 L nasal cannula and does not appear in acute respiratory distress. She does appear like she is not feeling well. She says that she has shortness of breath with exertion, productive cough, and night sweats. She denies headache, dizziness, nausea, vomiting, diarrhea, constipation. Initial respiratory panel was negative for viral agents. Repeat panel today and will also obtain a repeat sputum sample for AFB culture. 12/22: Mildly improved since yesterday. She is no longer requiring oxygen. Her shortness of breath is less but she still has a cough with poor production of sputum. No longer wheezing. Her WBC count remains at 11.3 but she has been afebrile. 12/23: Marge appears better today, less facial flushing. Per her nurse she had some tearful episodes related to not being home with her family and her diabetes diagnosis. I spoke with her about diabetes management including outpatient referrals for DM education. We discussed potential outpatient medication therapy including starting metformin at discharge. She is agreeable. Her leukocytosis has normalized and her respiratory assessment is improved today with less wheezing and decreased coarseness. If it is okay with pulmonology I'd be inclined to discharge her today. AFB is still pending. She did mention that her grandmother had TB in the 50's and she wasn't sure if this was relevant. As far as I know there can be genetic susceptibilities to TB but the patient has low risk factors for exposure. I encouraged her to share the information with pulmonology. Review of Systems Review of Systems: All systems reviewed & are unremarkable except as noted in HPI and below Exam Narrative: General: well-nourished, ill-appearing 37-year-old female, sitting up in bed, comfortable, NARD Otilio
[2022-12-23] MEDS: POTASSIUM CHLORIDE 20 MEQ ER TABLET 40 MEQ PO (06:57)
[2022-12-23 08:10] LABS: Glucose Point of Care 117 mg/dl (65-105)
--- NOTE | 2022-12-23 10:10 | PM.PNPUL ---
Progress Note: A&P Assessment and Plan (1) Community acquired pneumonia: Qualifiers: Laterality: unspecified laterality Qualified Code(s): J18.9 - Pneumonia, unspecified organism Code(s): J18.9 - Pneumonia, unspecified organism Status: Acute Assessment and Plan: Respiratory status slowly improving. Patient currently on room air with no cough and less sputum production. On physical exam, no longer expiratory wheezing. Chest x-ray showed infiltrates bilaterally as before with a possible partial clearing left lung base. Plan: Okay to DC patient home today. Patient should continue with levofloxacin 750 p.o. for another 5 days, Symbicort 160/4.5 inhaler 2 puffs twice daily and rescue albuterol inhaler p.r.n.. I gave patient my business card to call the pulmonary clinic to make an appointment in approximately 1 month. She will need further workup with achest CT to document clearing of lung infiltrates, pulmonary function testing to assess for possible mild intermittent asthma. She had sputum sent for AFBs. (2) Depression with anxiety: Code(s): F41.8 - Other specified anxiety disorders Status: Acute (3) Elevated LFTs: Code(s): R79.89 - Other specified abnormal findings of blood chemistry Status: Acute (4) Type 2 diabetes mellitus: Qualifiers: Diabetes mellitus long-term insulin use: without long-term use Code(s): E11.9 - Type 2 diabetes mellitus without complications Status: Acute Subjective Date/time seen: 12/23/22 10:10 Interval history: Patient not doing better. No more coughing no wheezing. Still on room air anxious to go home. Review of Systems Review of Systems: All systems reviewed & are unremarkable except as noted in HPI and below (HPI and below) Exam Narrative: GENERAL APPEARANCE: Well developed, well nourished, alert and cooperative, and appears to be in no acute distress while on supplemental oxygen via nasal cannula SKIN: Inspection of the skin eczematous rash right foot HEENT: Sclerae anicteric and conjunctivae pink and moist. Extraocular movements were intact and pupils were equal, round, and reactive to light. The oral mucosa, hard and soft palate, tongue and posterior pharynx were normal. NECK: Supple. There was no thyroid enlargement, and no tenderness, or masses were felt. CHEST: Normal AP diameter and normal contour without any kyphoscoliosis. LUNGS: Clear breathing sound bilaterally no expiratory wheezing CARDIAC: There was a regular rate and rhythm without any murmurs, gallops, rubs. ABDOMEN: Soft and nontender with normal bowel sounds. There was no organomegaly. LYMPH NODES: No lymphadenopathy was appreciated in the neck. EXTREMITIES: No cyanosis, clubbing or edema. NEUROLOGIC: Alert and oriented x 3. Normal affect. Objective Data Vital Signs Vital Signs: Vital Signs - 24 hr 12/22/22 13:20 12/22/22 13:49 12/22/22 14:00 Temperature 36.6 C Pulse Rate 73 77 74 Respiratory Rate 18 18 18 Blood Pressure 148/84 H Pulse Oximetry 92 Oxygen Delivery Fraction of Inspired Oxygen 12/22/22 17:25 12/22/22 17:50 12/22/22 19:08 Temperature 36.6 C Pulse Rate 89 91 89 Respiratory Rate 18 18 20 Blood Pressure 145/76 H Pulse Oximetry 95 Oxygen Delivery Fraction of Inspired Oxygen 12/22/22 20:36 12/22/22 20:47 12/22/22 20:00 Temperature Pulse Rate 85 88 88 Respiratory Rate 18 18 18 Blood Pressure Pulse Oximetry 95 Oxygen Delivery Room Air Fraction of Inspired Oxygen 21 12/23/22 00:38 12/23/22 00:54 12/23/22 04:49 Temperature Pulse Rate 83 84 80 Respiratory Rate 18 18 18 Blood Pressure Pulse Oximetry Oxygen Delivery Fraction of Inspired Oxygen 12/23/22 05:07 12/23/22 06:00 12/23/22 09:05 Temperature 36.6 C Pulse Rate 86 81 89 Respiratory Rate 19 16 16 Blood Pressure 134/79 Pulse Oximetry 90 Oxygen Delivery Fraction of Inspired
[2022-12-23] MEDS: predniSONE 20 MG TABLET 40 MG PO (10:30)
[2022-12-23] MEDS: guaiFENesin 12 HR 600 MG TABCR PO (10:30)
[2022-12-23] MEDS: levoFLOXacin 750 MG TABLET PO (10:30)
--- NOTE | 2022-12-23 11:29 | PM.DS ---
DS: Admitting Diagnosis Discharge Date SaturdayDecember 23 Admitting Diagnosis community-acquired pneumonia DS: Discharge Diagnosis Discharge Diagnosis (1) Community acquired pneumonia: Qualifiers: Laterality: unspecified laterality Qualified Code(s): J18.9 - Pneumonia, unspecified organism Code(s): J18.9 - Pneumonia, unspecified organism Status: Acute Assessment and Plan: CT with patchy ground glass opacities and reticulonodular infiltrates. -started on azithromycin and Rocephin -sputum culture pending, awaiting AFB as well -afebrile, off oxygen -Wheezing resolved, PO prednisone ordered starting today after 1 round of Solu-medrol on admission -Albuterol nebulizers scheduled Q 4 hours -IS, pep, and CPT ordered -acute respiratory panel negative for flu, RSV, COVID -Leukocytosis has resolved -consult pulmonology and recommendations are appreciated Urine culture growing enterococcus species but U/A did not appear infected and patient has no complaints of UTI. Regardless, patient is being covered with Rocephin for pneumonia. 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 Will increase bedtime dosing of lantus to 20 units -currently not on home regimen Plan De-escalate antibiotics today await AFB culture Appreciate guidance from pulmonology DS: Summary Hospital Course Hospital Course: This is a 37-year-old female with a PMH of depression, anxiety, and recently diagnosed with DM. She presents with a productive cough and increasing shortness of breath for the last 3.5 weeks. She has recently received a z-kev and two rounds of steroids. Her chest CTA showed extensive patchy ground-glass opacities and reticular nodule infiltrates compatible with pneumonia. She is being admitted for pneumonia with treatment of antibiotics. Interval history: 12/21:? Patient is seen today resting in bed with her at the bedside.? She is on 2 L nasal cannula and does not appear in acute respiratory distress.? She does appear like she is not feeling well.? She says that she has shortness of breath with exertion, productive cough, and night sweats.? She denies headache, dizziness, nausea, vomiting, diarrhea, constipation.? Initial respiratory panel was negative for viral agents.? Repeat panel today and will also obtain a repeat sputum sample for AFB culture. 12/22: Mildly improved since yesterday. She is no longer requiring oxygen. Her shortness of breath is less but she still has a cough with poor production of sputum. No longer wheezing. Her WBC count remains at 11.3 but she has been afebrile. 12/23: Marge appears better today, less facial flushing. Per her nurse she had some tearful episodes related to not being home with her family and her diabetes diagnosis. I spoke with her about diabetes management including outpatient referrals for DM education. We discussed potential outpatient medication therapy including starting metformin at discharge. She is agreeable. Her leukocytosis has normalized and her respiratory assessment is improved today with less wheezing and decreased coarseness. If it is okay with pulmonology I'd be inclined to discharge her today. AFB is still pending. She did mention that her grandmother had TB in the 50's and she wasn't sure if this was relevant. As far as I know there can be genetic susceptibilities to TB but the patient has low risk factors for exposure.? I encouraged her to share the information with pulmonology.? Status at Discharge Cognitive/behavioral status at discharge: A&O x4, pleasant Time Spent with Patient Time attestation: Total time spent p
[2022-12-23 12:03] LABS: Glucose Point of Care 142 mg/dl (65-105)
[2022-12-23 15:39] LABS: Pneumococcal Antigen Urine Not Detected (Not Detected)
[2022-12-25 14:00] LABS: Mycoplasma IgM Antibody Titer 269 U/mL (<770)
[2022-12-26 04:24] LABS: Legionella pneumophila Ag Ur Not Detected (Not Detected)
== END 2022-12-23 14:35 | disposition home or self-care (01) | DRG 195 ==
LOC: ANHED 12:47 → ANH2MED 13:52
PROVIDERS: Physician Assistant; Admitting Provider Internal Medicine; Emergency Provider Physician Assistant; Visit Provider Nurse Practitioner Acute Care
DX: J18.9 Pneumonia, unspecified organism (principal); B95.2 Enterococcus as the cause of diseases classified elsewhere; E11.9 Type 2 diabetes mellitus without complications; E83.42 Hypomagnesemia; F41.8 Other specified anxiety disorders; R79.89 Other specified abnormal findings of blood chemistry; R91.1 Solitary pulmonary nodule; Z20.822 Contact with and (suspected) exposure to COVID-19; Z90.49 Acquired absence of other specified parts of digestive tract
CPT/HCPCS: 36415; 71045; 71046; 71275; 80048; 80053; 81001; 81025; 82948; 83036; 83735; 84484; 85025; 85380; 85610; 85730; 86738; 87015; 87070; 87077; 87086; 87088; 87116; 87186; 87205; 87206; 87449; 87637; 87899; 93005; 94640; 94667; 94668; 96361; 96365; 96366; 96367; 96375; 99285; A9270; G0378; J0456; J0696; J1650; J1815; J1956; J2920; J3475; J7030; J7512; Q9967

== ENCOUNTER 2023-02-22 13:05 | Outpatient (CLI) | payer OTHER, SELFPAY ==
--- NOTE | ~2023-02-22 | XR_ITS ---
EXAMINATION: XR chest 2V 02/22/2023 13:27 INDICATION: Pneumonia PROCEDURE: 2 view chest COMPARISON: 12/23/2022 FINDINGS: The lungs are clear. The cardiomediastinal silhouette is within normal limits. There are no pleural effusions. There is no pneumothorax suspected. IMPRESSION: 1: NO ACUTE CARDIOPULMONARY DISEASE. Reviewed, dictated and finalized at location B.
== END 2023-02-22 13:06 | disposition home or self-care (01) ==
PROVIDERS: Visit Provider Internal Medicine Pulmonary Disease
DX: J18.9 Pneumonia, unspecified organism (principal)
CPT/HCPCS: 71046

== ENCOUNTER 2023-06-26 08:41 | Emergency (ER) | payer OTHER, SELFPAY ==
[2023-06-26 09:46] VITALS: BP 130/66; PULSE 76; RESP 16; TEMP 36.1; O2SAT 97
--- NOTE | 2023-06-26 10:17 | ED.NAVMDI ---
HPI - Nausea/Vomiting/Diarrhea General Chief complaint: Nausea/Vomiting/Diarrhea Stated complaint: Abdominal Pain, Vomiting, Diarrhea Time Seen by Provider: 06/26/23 10:05 Source: patient and RN notes reviewed Mode of arrival: ambulatory Limitations: no limitations History of Present Illness HPI Narrative: Patient presents today complaining of nausea, vomiting, diarrhea, and intermittent abdominal pain since yesterday morning. In between vomiting episodes she has been able to keep down some water and food. She did eat dinner last night and states it did stay down. Her last vomiting episode was at 7:00 a.m. this morning and has not tried to drink any fluids since that time. States she has also had several episodes of diarrhea. Denies blood or mucus in the stool. States the abdominal pain comes in waves that she rates 2-8/10. Denies fever. She has tried no ncco-evt-nexnvan treatment prior to arrival. Related Data Home Medications Medication Instructions Recorded Confirmed albuterol sulfate 90 mcg/actuation 2 - 4 puff inhalation Q4-6H PRN 12/20/22 06/26/23 aerosol inhaler Shortness Of Breath Or Wheezing citalopram 40 mg tablet 40 mg PO HS 12/20/22 06/26/23 atorvastatin 10 mg tablet 10 mg PO DAILY 06/26/23 06/26/23 etonogestrel 0.12 mg-ethinyl See Rx Instructions .Route .COMPLEX 06/26/23 06/26/23 estradiol 0.015 mg/24 hr vaginal ring (NuvaRing) montelukast 10 mg tablet 10 mg PO HS 06/26/23 06/26/23 tirzepatide 2.5 mg/0.5 mL 2.5 mg subcut WEEKLY 06/26/23 06/26/23 subcutaneous pen injector (Mounjaro) Allergies Allergy/AdvReac Type Severity Reaction Status Date / Time poppyseed oil AdvReac Intermediate Nausea and Verified 06/26/23 09:34 Vomiting amoxicillin AdvReac Mild Rash Verified 06/26/23 09:34 nickel AdvReac Mild Rash Verified 06/26/23 09:34 tiotropium AdvReac Mild Hives Verified 06/26/23 09:34 [From Spiriva with HandiHaler] Review of Systems Review of Systems: CONSTITUTIONAL: Denies body aches, fever, chills, or sweats. EYES: Denies visual changes, redness, or discharge. ENT: Denies rhinorrhea, congestion, sore throat, or otalgia. CARDIOVASCULAR: Denies chest pain, palpitations, or edema. RESPIRATORY: Denies cough or dyspnea. GASTROINTESTINAL: + nausea, vomiting, diarrhea, abdominal pain GENITOURINARY: Denies dysuria or hematuria. SKIN: Denies rash, itching, or wounds. MUSCULOSKELETAL: Denies back pain, joint pain, or myalgia. NEUROLOGIC: Denies headache, numbness, tingling, or weakness. PSYCH: Denies depression or anxiety. [facility] Past Medical History Medical History Depression with anxiety Type 2 diabetes mellitus Surgical History Surgical History History of cholecystectomy (01/2017) History of dilation and curettage (05/2018) Family History Family History Other Family history non-contributory Social History Social History Social History: Surrogate medical decision maker: Ramy Ricky, spouse. Code status: Full code. Smoking status: Never smoker Second hand tobacco smoke exposure: No Alcohol intake: never Substance use: never Lack of Transportation: No Lack of Food: Sometimes True Current Housing: I Have Housing Concerned About Future Housing: No Difficulty Paying Gas/Electric Bills: YES Difficulty Paying for Meds: No Currently Unemployed: No Education: Associate Degree Difficulty w/ Childcare or Family Care: No Additional living arrangements comments: Lives with spouse and 2 young children ages 4 and 7. Additional occupation/education comments: Works at a [employer]. Spiritual care concerns: No Comments At time of signature, I have reviewed and agree with nursing past medical, surgical, s
== END 2023-06-26 10:28 | disposition home or self-care (01) ==
PROVIDERS: Emergency Provider Nurse Practitioner
DX: R11.2 Nausea with vomiting, unspecified (principal); R19.7 Diarrhea, unspecified; R10.84 Generalized abdominal pain; Z20.822 Contact with and (suspected) exposure to COVID-19; E11.9 Type 2 diabetes mellitus without complications; F41.9 Anxiety disorder, unspecified; F32.A Depression, unspecified
CPT/HCPCS: 87426; 87804; 99213; G0463

== ENCOUNTER 2024-10-22 10:37 | Emergency (ER) | payer OTHER, SELFPAY ==
[2024-10-22 10:49] VITALS: BP 136/77; PULSE 80; RESP 16; TEMP 36.3; O2SAT 95
--- NOTE | 2024-10-22 10:52 | ED.EYEPROB ---
HPI - Eye Problem General Chief complaint: Upper Respiratory Infection Stated complaint: Left Eye Irritation Time Seen by Provider: 10/22/24 10:54 Source: patient Mode of arrival: ambulatory Limitations: no limitations History of Present Illness HPI Narrative: 39 y/o female with history of asthma presented for c/o cough, nasal congestion and drainage. Onset 4 days. Cough is productive of thick yellow sputum, and says it is frequent and causes headache. Denies sob, wheezing, n/v/d/f/c. Taking Claritin and Flonase. says she has not required increased use of albuterol inhaler. Pt also endorses Left eye irritation, worsening x5 days. Endorses mild swelling, itching, and clear drainage frequently. Pt wakes with mild crust in the left eye. denies vision changes, photophobia, eye pain. MD chief complaint: eye pain Related Data Home Medications ?Medication ?Instructions ?Recorded ?Confirmed ?Last Taken ?Type albuterol sulfate 90 mcg/actuation 2 - 4 puff inhalation Q4-6H PRN 12/20/22 06/26/23 Unknown History aerosol inhaler Shortness Of Breath Or Wheezing citalopram 40 mg tablet 40 mg PO HS 12/20/22 06/26/23 Unknown History atorvastatin 10 mg tablet 10 mg PO DAILY 06/26/23 06/26/23 Unknown History etonogestrel 0.12 mg-ethinyl See Rx Instructions .Route .COMPLEX 06/26/23 06/26/23 Unknown History estradiol 0.015 mg/24 hr vaginal ring (NuvaRing) montelukast 10 mg tablet 10 mg PO HS 06/26/23 06/26/23 Unknown History estradiol 0.01% (0.1 mg/gram) vaginal 10/22/24 Unknown History vaginal cream lisinopril 5 mg tablet mg 10/22/24 Unknown History Allergies Allergy/AdvReac Type Severity Reaction Status Date / Time poppyseed oil AdvReac Intermediate Nausea and Verified 10/22/24 10:39 Vomiting amoxicillin AdvReac Mild Rash Verified 10/22/24 10:39 nickel AdvReac Mild Rash Verified 10/22/24 10:39 tiotropium (From Spiriva AdvReac Mild Hives Verified 10/22/24 10:39 with HandiHaler) Review of Systems Review of Systems: CONSTITUTIONAL: Denies body aches, fever, chills EYES:Endorses swelling, redness and itching to left eye; Denies visual changes FB sensation, photophobia ENT: Reports rhinorrhea, congestion, otalgia. CARDIOVASCULAR: Denies chest pain, palpitations RESPIRATORY: Denies cough or dyspnea. GASTROINTESTINAL: Denies abdominal pain, nausea, vomiting, or diarrhea. SKIN: Denies rash MUSCULOSKELETAL: Denies back pain, joint pain, or myalgia. NEUROLOGIC: Denies headache, numbness, tingling, or weakness. All systems reviewed & are unremarkable except as noted in HPI and below PMFSH Past Medical History Medical History (Updated 10/22/24 @ 11:21 by Soledad Sena, ARASH) Asthma Type 2 diabetes mellitus Depression with anxiety Surgical History Surgical History History of cholecystectomy (01/2017) History of dilation and curettage (05/2018) Family History Family History Other Family history non-contributory Social History Social History Social History: Surrogate medical decision maker: Ramy García, spouse. Code status: Full code. Smoking status: Never smoker Second hand tobacco smoke exposure: No Alcohol intake: never Substance use: never Lack of Transportation: No Lack of Food: Sometimes True Current Housing: I Have Housing Concerned About Future Housing: No Difficulty Paying Gas/Electric Bills: YES Difficulty Paying for Meds: No Currently Unemployed: No Education: Associate Degree Difficulty w/ Childcare or Family Care: No Additional living arrangements comments: Lives with spouse and 2 young children ages 4 and 7. Additional occupation/education comments: Works at a [employer]. Spiritual care concerns: No Comments At time of signature, I have reviewed and agree with nursing past medical, surgical, social and family history unless otherwise noted. Please see nursing chart for further information. There is no relevant family history pertinent to the presenting complaint Exam Narrative: GENERAL: Well-appearing HEAD: Normocephalic, atraumatic. EYES: Mild left conjunctival injection, mild left eye lid swelling and clear drainage. Nontender. PERRLA EOMI. Lid eversion shows no foreign body ENT: Mucous membranes pink and moist. nasal congestion and drainage noted, TMs with clear effusion bilaterally. Throat normal. Uvula midline. CHEST: Clear to auscultation. HEART: Regular rate and rhythm. SKIN: Warm, dry, no rash. Normal skin turgor. NEURO: No focal deficits. Alert and oriented x3 PSYCH: Normal affect. Course Course Emergency Course: Patient is aware of diagnosis, understands and agrees to treatment plan. Anticipatory guidance given. Patient agrees to follow-up as directed and is aware of reasons to seek care at the emergency department. Portions of this record may have been created with voice recognition software Level of Care: Express Care Visit Vital Signs Vital signs: Vital Signs Temperature 97.4 F L 10/22/24 10:49 Pulse Rate 80 10/22/24 10:49 Respiratory Rate 16 10/22/24 10:49 Blood Pressure 136/77 10/22/24 10:49 Pulse Oximetry 95 10/22/24 10:49 Oxygen Delivery Room Air 10/22/24 10:49 Temperature 97.4 F L 10/22/24 10:49 Pulse Rate 80 10/22/24 10:49 Respiratory Rate 16 10/22/24 10:49 Blood Pressure 136/77 10/22/24 10:49 Pulse Oximetry 95 10/22/24 10:49 Oxygen Delivery Room Air 10/22/24 10:49 MDM - Eye Problem MDM Narrative Medical decision making narrative: negative flu and COVID. Discussed physical exam findings , Rx steroid for frequent cough and history of asthma. Advised supportive measures and signs/symptoms to go to the ER. Pt is appropriate for outpt treatment and f/u. Differential Diagnosis Differential diagnosis: Likely corneal abrasion, conjunctivitis, acute iritis and other Discharge Plan Discharge Clinical Impression: Bacterial conjunctivitis, Viral infection Patient Disposition: Home Condition: Stable Instructions: Antibiotic Form, Upper Respiratory Infection (ED), Conjunctivitis (ED) Additional Instructions: Flu and COVID negative. Recommendations: Flonase spray and Zyrtec (or Claritin/Ayanna) over the counter Cough syrup may cause drowsiness; avoid driving or take it at night time. Tylenol 1000mg every 8 hours as needed for pain Symptomatic treatment includes: rest, fluids, and increase humidity of the air at home. Avoid touching or rubbing your eye. Use over the counter lubricating eye drops as needed for irritation Use a warm or cool washcloth on your eye for comfort Use eyedrops as directed - you are contagious for 24 hours after starting the antibiotic Practice good handwashing and hygiene to prevent spread of infection Do not wear contact lenses. Use a new pair after the infection is resolved. Use new makeup, lashes etc. You may take Tylenol or ibuprofen for pain Follow-up with PCP or log driver if condition is not improving in 2-3days. Go to the emergency room if you have severe pain or pressure behind your eye, difficulty seeing, or other severe symptoms Patient Language: Danish Prescriptions: New polymyxin B sulf-trimethoprim 10,000 unit- 1 mg/mL drops 1 drp LEFT EYE Q3H 7 Days Qty: 10 0RF Rx Instructions: while awake; do not exceed 6 doses in 24 hours methylprednisolone [Medrol (Luigi)] 4 mg tablets,dose pack See Rx Instructions .ROUTE .COMPLEX Qty: 21 0RF Rx Instructions: orally per package directions No Action atorvastatin 10 mg tablet 10 mg PO DAILY montelukast 10 mg tablet 10 mg PO HS etonogestrel-ethinyl estradiol [NuvaRing] 0.12-0.015 mg/24 hr ring See Rx Instructions .ROUTE .COMPLEX Rx Instructions: vag ring vaginally dicyclomine 20 mg tablet 20 mg PO TID PRN (Reason: abdominal pain) Qty: 15 0RF lisinopril 5 mg tablet estradiol 0.01 % (0.1 mg/gram) cream VAGINAL citalopram 40 mg tablet 40 mg PO HS albuterol sulfate 90 mcg/actuation HFA aerosol inhaler 2 - 4 puff INHALATION Q4-6H PRN (Reason: Shortness Of Breath Or Wheezing) budesonide-formoterol [Symbicort] 160-4.5 mcg/actuation HFA aerosol inhaler 2 puff inhalation Q12H Qty: 10.2 0RF Follow-up/Referrals: Ailyn Myers NP [Primary Care Provider] - Time of Disposition: 11:17
[2024-10-22 11:58] LABS: EDCOVIDSCREEN Negative (Negative); EDINFLUASCREEN Negative (Negative); EDINFLUBSCREEN Negative (Negative)
== END 2024-10-22 11:20 | disposition home or self-care (01) ==
PROVIDERS: Emergency Provider Nurse Practitioner Family
DX: H10.9 Unspecified conjunctivitis (principal); B34.9 Viral infection, unspecified; Z20.822 Contact with and (suspected) exposure to COVID-19; E11.9 Type 2 diabetes mellitus without complications; J45.909 Unspecified asthma, uncomplicated; F41.8 Other specified anxiety disorders
CPT/HCPCS: 87426; 87804; 99213; G0463

== ENCOUNTER 2024-12-07 19:20 | Emergency (ER) | payer OTHER, SELFPAY ==
--- OUTSIDE RECORDS SUMMARY | 2024-12-07 19:23 | XMS_ITS | Clinical Summary ---
Author Organization [employer] [address] [place] [address] [place] [address] [place] [address] Care Team Providers Care Java Core Developer Name Role Phone Unavailable Primary Care Provider Unavailabl e Allergies Active Allergy Reactions Criticality Noted Date Comments Amoxicillin Rash Low 03/05/2017 Nickel Unknown 03/05/2017 Medications VENTOLIN HFA 90 mcg/actuation inhaler INHALE 2 PUFFS BY MOUTH EVERY 4 HOURS NEEDED FOR SHORTNESS OF BREATH. USE WITH SPACER CHAMBER 1 Active hydrocortisone (HYTONE) 2.5 % Cream Apply to affected area 2 times daily. 28 Gram 1 1 Active citalopram (CeleXA) 20 mg tablet Take 1 Tablet (20 mg) by mouth daily at bedtime. 90 Tablet 3 1 Active etonogestrel-Ethi nyl Estradiol (EluRyng) 0.12-0.015 mg/24 hr RingIndications:E ncounter for prescription for nuvaring INSERT ONE RING VAGINALLY FOR 3 WEEKS, REMOVE FOR 1 WEEK,REPEAT AGAIN 3 Ring 2 Active Active Problems Patient Care Coordination No te Formatting of this note migh t be different from the original. OB-CLAIMS ATTORNEY Problem Noted Date Diagnosed Date Prediabetes 05/12/2018 Morbid obesity with body mass index of 40.0-49.9 04/14/2018 Resolved Problems Problem Noted Date Diagnosed Date Resolved Date Missed 09/30/2019 Immunizations Immunization Administration Dates Next Due Influenza Seasonal Unspecified Formulation IM ,01/31/2018 Family History Medical History Relation Name Comments Other Brother 1 autistic Other Brother 2 epileptic Diabetes Father Skin Cancer Father removed Heart Disease Maternal Grandfather Tuberculosis Maternal Grandmother Diabetes Mother Thyroid Disease Mother Alzheimer's Disease Paternal Grandmother Relation Name Status Comments Brother 1 Alive Brother 2 Alive Father Alive Maternal Grandfather Maternal Grandmother Mother Alive Paternal Grandfather Paternal Grandmother Sister Alive Social History Tobacco Use Types Packs/Day Years Used Date Smoking Tobacco: Never Smokeless Tobacco: Never Alcohol Use Standard Drinks/Week Comments Not Currently 0 (1 standard drink = 0.6 oz pur e alcohol) rare Comments No Sex and Gender Information Value Date Recorded Sex Assigned at Not on file Legal Sex Female 10:10 PM CDT Gender Identity Not on file Sexual Orientation Not on file 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 Not on file Not on file Last Filed Vital Signs Vital Sign Reading Time Taken Comments Blood Pressure 122/78 12/23/2020 8:22 AM CDT Pulse 80 06/10/2018 3:50 PM TREATMENT MANAGER Temperature 37.1 C (98.8 F) 06/10/2018 3:50 PM TREATMENT MANAGER Respiratory Rate 14 06/10/2018 3:50 PM TREATMENT MANAGER Oxygen Saturation 98% 06/10/2018 3:50 PM TREATMENT MANAGER Inhaled Oxygen Concentration - - Weight 130.2 kg (287 lb) 12/23/2020 8:22 AM CDT Height 162.6 cm (5' 4) 12/23/2020 8:22 AM CDT Body Mass Index 49.26 12/23/2020 8:22 AM CDT Plan of Treatment Health Maintenance Due Date Last Done Comments HPV VACCINES (1 - 3-dose series) 2001 DTAP/TDAP/TD VACCINES (1 - Tdap) 2005 HEPATITIS B VACCINES (1 of 3 - 19+ 3-dose series) 2005 Pre-Diabetes and Diabetes Screening 12/18/2021 12/18/2018, 05/02/2018, 04/21/2018, Additional history exists PAP SMEAR 10/12/2022 10/13/2019 CERVICAL CANCER SCREENING 10/12/2024 HPV/Cotest (21-29) 10/12/2024 10/13/2019 HPV/Cotest (30-65) 10/12/2024 10/13/2019 INFLUENZA VACCINE (#1) 2024 02/02/2019, 2017 Procedures Procedure Name Priority Date/Time Associated Diagnosis Comments CERV/VAG CYTO SCREEN PAP W/HPV Routine 10/13/2019 3:24 PM CDT Well woman exam with routine gynecological exam HEMOGLOBIN A1C Routine 12/18/2018 10:38 AM CDT from Last 3 Months or Most Recently Relevant to Health Maintenance Results * CERV/VAG CYTO SCREEN PAP W/HPV (10/13/2019 3:24 PM CDT) CASE REPORT Gynecologic Cytology Report Case: [id number] Authorizing Provider: Marie Gamez, Collected: 10/13/2019 03:24 PM PAD MACHINE FEEDER Ordering Location: [facility] [employer] - [facility] Received: 10/14/2019 07:04 AM [employer] First Screen: Nadya Henao Pathologist: Mayuri Cole MD Specimen: LB PAP TP AND HPV PROT, [employer] 10/30/2019 8:34 AM CDT [facility] Specimen Adequacy Satisfactory for evaluation, endocervical/trans formation zone component present 10/30/2019 8:34 AM CDT [facility] [employer] Interpretation Negative for intraepithelial lesion or malignancy 10/30/2019 8:34 AM CDT [facility] Verified by Mayuri Cole MD on 10/30/2019 at 0834 [facility] [employer] Other Findings Reactive changes associated with inflammation/repai r Moderate inflammation noted 10/30/2019 8:34 AM CDT [facility] [employer] Prev Pap Result Last pap: a few years ago Denies Hx of abnormal pap 10/30/2019 8:34 AM CDT [facility] GynLMP 10/05/2019 10/30/2019 8:34 AM CDT [facility] [employer] Educational Note 10/30/2019 8:34 AM CDT [facility] [employer] [facility] Comment:The Pap test is a sc reening test used to aid in the detection of cervical cancer and its precursors. It should not be the sole means by which malignant and premalignant lesions are diagnosed. Both false negative and false positive results may occur. Results must be interpreted in the context of historic and current clinical information. EMBEDDED IMAGE 10/30/2019 8:34 AM CDT [facility] Genital SWAB OF ENDOCERVIX / Unknown Collection / Unknown 10/13/2019 3:24 PM CDT 10/14/2019 7:04 AM CDT Marie Gamez NP PATHOLOGY/CYTOLOGY ORD ERABLES Final Result Performing Organization Address [facility]/ZIP Co de Phone Number [facility] CLIA# [id number] [place] [address] * (ABNORMAL) HEMOGLOBIN A1C (12/18/2018 10:38 AM CDT) HEMOGLOBIN A1C 6.0(H) <=5.6 % 12/19/2018 12:11 PM CDT [facility] EST. AVG GLUCOSE, A1C 126 mg/dL 12/19/2018 12:11 PM CDT [facility] Blood 12/18/2018 10:3 8 AM CDT 12/19/2018 11:42 AM CDT Narrative [facility] - 12/19/2018 12:11 PM CDT HGB A1C INTERPRETATION NORMAL: <5.7% PRE-DIABETES: 5.7 - 6.4% DIABETES: 6.5% OR GREATER Richi Payne DO CHEMISTRY ORDERABLES Final Res ult Performing Organization Address City/[facility]/ZIP Co de Phone Number [facility] CLIA# [id number] [place] [address] from Last 3 Months or Most Recently Relevant to Health Maintenance Insurance [address] [place] [id number] RX MEDIMPACT Member Subscriber Plan / Payer (Ef fective for All Dates) Name:García, Marge Herrera Relation to Subscriber:Self Name:Dequan Garcíae Javier Payer ID:Not on file Group ID:[id number] Type:RX Commercial Address: [address] RX MEDIMPACT Member Subscriber Plan / Payer (Ef fective for All Dates) Name:Marge García Relation to Subscriber:Spouse Name:García, Marge Javier Payer ID:Not on file Group ID:[id number] Type:RX Commercial Address: [address] RX GUERIN PLANS (INTERNAL) [facility] [address] [place] [id number] [place]ICA[place] Advance Directives For more information, please contact: [phone] * Full Code (Latest Code Status on File) Date Activated Date Inactivated Comments 05/01/2018 6:04 AM 05/01/2018 9:01 AM
--- OUTSIDE RECORDS SUMMARY | 2024-12-07 19:23 | XMS_ITS | Encounter Summary ---
Author Organization [facility] Address [address] [place] [address] Care Team Providers Care Crane Assembler Name Role Phone Akira Reed DO Primary Care Provider Reason for Visit * Reason Comments Medication Refill Encounter Details Date Type Department Care Team (Late st Contact Info) Description 05/28/2019 Refill [facility] - [address] [facility] [address] [place] [address] Estefani Bowers MD [address] [facility] [address] [address] control counseling Social History Tobacco Use Types Packs/Day Years Used Date Smoking Tobacco: Never Smokeless Tobacco: Never Alcohol Use Standard Drinks/Week Comments No 0 (1 standard drink = 0.6 oz pur e alcohol) rare Comments No Sex and Gender Information Value Date Recorded Sex Assigned at Not on file Legal Sex Female 10:10 PM CDT Gender Identity Not on file Sexual Orientation Not on file 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
--- OUTSIDE RECORDS SUMMARY | 2024-12-07 19:23 | XMS_ITS | Continuity of Care Document ---
Author Organization [facility] [facility] Address [address] [place] [address] Phone Care Team Providers Care Bit Sharpener Name Role Phone Cheyanne Lopez MD Unavailable Unavailable Allergies, Adverse Reactions, Alerts Substance Reaction Status Criticality risperidone RashRash Active No Information POPPY Active No Information nickel Active No Information Medications Medication Instructions Dosage Effective Dates (start - stop) Status Comments CITALOPRAM HBR 40 MG TABLET TAKE 1 TABLET BY MOUTH EVERY DAY - Active LISINOPRIL 5 MG TABLET TAKE 1 TABLET BY MOUTH EVERY DAY - Active glipizide 5 mg tablet take 1 tablet by oral route 2 times every day before meals 5 MG - Active replacing lost medication mometasone 0.1 % topical ointment apply by topical route every day a thin layer to the affected area(s) 0.00 - Active atorvastatin 10 mg tablet take 1 tablet by oral route every day 10 MG - Active AIRSUPRA (unknown strength) inhale 2 puff by inhalation route as needed :not to exceed 6 doses per day Not Available - Active Procedures Procedure Date NUTRITIONAL THERAPY; INITIAL ASSESSMENT AND INTERVENTION, INDIVIDUAL, EACH 15 WA BODY MASS INDEX DOCD SYST BP LT 130 MM HG DIAST BP < 80 MM HG PREVENTATIVE-EST: 18-39 OFFICE [id number] BODY MASS INDEX DOCD SYST BP LT 130 MM HG DIAST BP < 80 MM HG OFFICE [id number] BODY MASS INDEX DOCD SYST BP LT 130 MM HG DIAST BP 80-89 MM HG BODY MASS INDEX DOCD SYST BP >= 140 MM HG6 IT DIAST BP 80-89 MM HG Ingestion Challenge Test, Inital 120 Min utes Allergy Testing, Any Combination Of Perc utaneous A OFFICE [id number] OFFICE [id number]-DUI-OCGOAYEH BODY MASS INDEX DOCD SYST BP LT 130 MM HG DIAST BP 80-89 MM HG ALLERGY SKIN TESTS ALLERGY SKIN TESTS ID HEALTH RISK ASSESSMENT, PATIENT-FOCUSED OFFICE [id number] BODY MASS INDEX DOCD SYST BP LT 130 MM HG DIAST BP 80-89 MM HG SPIROMETRY BEFORE & AFTER BRONCHODIALATO R MOUTHPIECE OFFICE [id number] BODY MASS INDEX [facility] 130 MM HG DIAST BP < 80 MM HG MOUTHPIECE SPIROMETRY BEFORE & AFTER BRONCHODIALATO R Transitional Care- First 7 Days Of Disch arge BODY MASS INDEX DOCD SYST BP LT 130 MM HG DIAST BP 80-89 MM HG ADM SET WITH SMALL VOL NON FILTERED PNEU MATIC NEBULIZER DISPOSABLE ALBUTEROL 2.5 MG AND IPRATROPIUM BROMIDE .5 MG INHALATION TREATMENT/THERAPY SPIROMETRY BEFORE & AFTER BRONCHODIALATO R OFFICE [id number] BODY MASS INDEX DOCD SYST BP GE 130 - 139MM HG DIAST BP < 80 MM HG Chest Xray, 2 Views COVID, Flu A, Flu B OFFICE [id number] SYST BP LT 130 MM HG DIAST BP 80-89 MM HG CBC, INC PLATELETS AND DIFFERENTIAL COMPREHEN METABOLIC PANEL CMP ROUTINE VENIPUNCTURE OFFICE [id number] SYST BP LT 130 MM HG DIAST BP < 80 MM HG NUTRITIONAL THERAPY; INITIAL ASSESSMENT AND INTERVENTION, INDIVIDUAL, EACH 15 WA Pt inelig neg scrn depres PREVENTATIVE-NEW: 18-39 BODY MASS INDEX DOCD SYST BP GE 130 - 139MM HG DIAST BP 80-89 MM HG Advance Directives Directive Yes / No Effective Date File Name Life Support Not Answered N/A N/A Intubation Not Answered N/A N/A Antibiotics Not Answered N/A N/A IV Fluid Support Not Answered N/A N/A Tube Feed Not Answered N/A N/A Other Directive N/A N/A WARNING:The information contained in this section is historical and is provided for information only and does not constitute a legal document or any assurance that the information is still accurate. Please verify the information with the pretty of the legal document before using it for clinical purposes. Encounters Encounter Description Practice Location Reason(s) For Visit Diagnoses Date Provider Providers Copied on Encounter [facility], [address], [place], [place], [address] , [place] tel: [phone] [facility] No Information 5 John Edward. [address], [place], [place], [address], [place]. tel:[phone] [facility], [address], [place], [place], [address] , tel: [phone] [facility] No Information 5 John Cheyanne. [address], [place], [place], [address], [place]. tel:[phone] [facility], [address], [place], [place], [address] , [place] tel: [phone] [facility] Type 2 diabetes mellitus with hyperglycemiaSeve re obesity (BMI >= 40) 4 Agapito Taylor. [address], [place], [place], [address], [place]. tel:[phone] Referring Provider: Cheyanne Lopez, [address], [place], [address] . tel:[phone] PREVENTATIVE- EST: 18-39 [facility], [address], [place], [place], [address] , [place] tel: [phone] [facility] preventive exam (chief complaint)C hronic Conditions (chief complaint) Type 2 diabetes mellitus with hyperglycemiaBody mass index [BMI] 45.0-49.9, adultEncounter for general adult medical examination without abnormal findings 4 John Edward. [address], [place], [place], [address], [place]. tel:[phone] Referring Provider: Cheyanne Lopez, [address], [place], [address] . tel:[phone] [facility], [address], [place], [place], [address] , [place] tel:[phone] [facility] No Information 4 John Edward. [address], [place], [place], [address], [place]. tel:[phone] OFFICE BFTEE-JVB-ARR ANDED [facility], [address], [place], [place], [address] , [place] tel: [phone] [facility] Ast[facility] [place] Allergies (chief complaint) Allergic rhinitis due to house dust miteSeasonal allergic rhinitis due to pollenHistory of penicillin allergyRecurrent pneumoniaPruritic dermatitis 4 Lewis Elyra. [address], [address], [place], [place], [address], [place]. tel:[phone] Referring Provider: [address], [place], [address] . tel:[phone] OFFICE QHWQA-WAT-QNJ [facility], [address], [place], [place], [address] , [place] tel:[phone] [facility] Chronic Conditions (chief complaint)c hronic conditions (chief complaint) Type 2 diabetes mellitus without complication, without long-term current use of insulinBody mass index [BMI] 45.0-49.9, adult 4 John Edward. [address], [place], [place], [address], [place]. tel:[phone] Referring Provider: [address], [place], [address] . tel:[phone] OFFICE WUNDM-WTI-MCN ANDED [facility], [address], [place], [place], [address] , [place] [phone] [facility] Asthma Allergy [place] PCN Allergy (chief complaint) Penicillin allergySeasonal allergic rhinitis due to pollenAllergic rhinitis due to house dust mite 4 Lewis Elyra. [address], [facility] [address], [place], [place], [address], [place]. tel:[phone] Referring Provider: Cheyanne Lopez, [address], [place], [address] . tel:[phone] OFFICE YUGBK-XJT-CSY [facility], [address], [place], [place], [address] , [place] tel:[phone] [facility] Asthma Allergy [place] Allergies (chief complaint) Recurrent sinus infectionsSeasona l allergic rhinitis due to pollenAllergic rhinitis due to house dust mite 3 Lewis Elyra. [address], [address], [place], [place], [address], [place]. tel:[phone] Referring Provider: [address], [place], [address] . tel:[phone] OFFICE [id number]-BVA-ZJP ANDED [facility], [address], [place], [place], [address] , tel:[phone] [facility] Asthma Allergy [place] Recurrent Illnesses (chief complaint) Recurrent pneumoniaSeasonal allergies 3 Lewis Elyra. [address], [facility] [address], [place], [place], [address], [place]. tel:[phone] Referring Provider: [address], [place], [address] . tel:[phone] OFFICE [id number]-CTB-IFZ P-MED [facility], [address], [place], [place], [address] , [place] tel: [phone] [facility] Asthma Allergy [place] Recurrent Infections (chief complaint) Recurrent pneumoniaRecurren t sinus infectionsSeasona l allergies 3 Lewis Elyra. [address], [facility] [address], [place], [place], [address], [place]. tel:[phone] Referring Provider: [address], [place], [address] . tel:[phone] Transitional Care- First 7 Days Of Discharge [facility], [address], [place], [place], [address] , [place] tel: [phone] [facility] Follow-Up (chief complaint) Acute pneumoniaType 2 diabetes mellitus without complication, without long-term current use of insulinHospital discharge follow-up 3 Jhonatan Nagy. [address], [place], [place], [address], [place]. tel:[phone] Referring Provider: [address], [place], [address] . tel:[phone] OFFICE HAQAM-OVE-NNL GAVIN [facility], [address], [place], [place], [address] , [place] tel: [phone] [facility] Patient encounter (chief complaint) Acute cough 3 John Edward. [address], [place], [place], [address], [place]. tel:[phone] Referring Provider: Cheyanne Lopez, [address], [place], [address] . tel:[phone] [facility], [address], [place], [place], [address] , tel: [phone] [facility] Acute upper respiratory infection, unspecified 2 John Edward. [address], [place], [place], [address], [place]. tel:[phone] Referring Provider: Cheyanne Lopez, [address], [place], [address] . tel:[phone] OFFICE [id number]-SGV-FGS ANDED [facility], [address], [place], [place], [address] , tel: [phone] [facility] acute visit (chief complaint) Acute diarrhea 2 Erik Kongn. [address], [place], [place], [address], [place]. tel:[phone] Referring Provider: Cheyanne Lopez, [address], [place], [address] . tel:[phone] OFFICE GRZHC-TSO-DVJ ANDED [facility], [address], [place], [place], [address] , [place] tel: [phone] [facility] Patient encounter (chief complaint) Severe obesity (BMI >= 40)Asymptomatic varicose veinsRashEncounte r for general adult medical examination without abnormal findingsHyperglyc emiaAnemia, unspecified type 2 John Edward. [address], [place], [place], [address], [place]. tel:[phone] Referring Provider: [address], [place], [address] . tel:[phone] [facility], [address], [place], [place], [address] , [place] tel: [phone] [facility] Obesity, Class III, BMI 40-49.9 (morbid obesity)Prediabet es 2 Agapito Taylor. [address], [place], [place], [address], [place]. tel:[phone] Referring Provider: Julianne García, [address], [place], [address] . tel:[phone] [facility], [address], [place], [place], [address] , tel: [phone] [facility] Cough 2 John Edward. [address], [place], [place], [address], . tel:[phone] PREVENTATIVE- NEW: 18-39 [facility], [address], [place], [place], [address] , tel: [phone] [facility] Establish care (chief complaint) AnxietyPrediabete sPneumonia of both lungs due to infectious organism, unspecified part of lungEncounter for general adult medical examination without abnormal findingsDepressio n, unspecifiedObesit y, Class III, BMI 40-49.9 (morbid obesity) 1 Erik Harper [address], [place], [place], [address], [place]. tel:[phone] Referring Provider: Cheyanne Lopez, [address], [place], [address] . tel:[phone] [facility], [address], [place], [place], [address] , tel: [phone] [facility] No Information 1 Erik Kebede. [address], [place], [place], [address], . tel:[phone] Family History Family Member Type Diagnosis Age At Onset Mother Problem Diabetes mellitus Father Problem Diabetes mellitus Mother Problem Obesity Immunizations Vaccine Date Status Comments J&J COVID/Adenovirus Vaccine [id number] viral particles/0.5mL administered Source: Other Prov ider Payers Payer name Insurance type Covered alliance party ID Authoriza tijulia(s) No Information Social History Type Description Quantity Date Captured Comments Alcohol Use Details Unknown Caffeine Use Details Unknown Tobacco Use Status No Information Smoking Status No Information Sex Female Chief Complaint And Reason For Visit No Information Reason For Referral Reason For Referral No Information Plan Of Treatment Date Type Action Status Referral Ordered: Chest Xray, 2 Views ordered History Of Present Illness Encounter Date Complaint History Of Prese nt Illness Chronic Conditions *See Chronic Conditions HPI preventive exam Additional infor mation: could do better w diet, trying to pick sugar free things, eating more raw veggies, tries to choose whole grain. started to exercise, doing more walking, keeping well hydrated . Allergies Marge is a [age] year old seen in the office for follow-up of her diagnosis of allergic rhinitis & history of recurrent pneumonia.Marge reports that she is doing well and she has no allergy symptoms to report.She has no complaints of cough, wheezing or shortness of breath. She take Trelegy daily & she uses AirSupra at least once a day for cough symptoms. There has been no ED visits, hospitalization or steroid bursts for asthma-related symptoms.She has not have any illnesses that required antibiotic therapy since her PCN skin testing.Marge has always had a rash on the top of her right foot. It is itching. She does not apply or do anything for the rash. She merely deals with it. She presumes it may be eczema or psoriasis.No fevers, vomiting or diarrhea.05/23/2023 Antibiotic skin testing was NEGATIVE to Penicillin G & Penicilloyl- qnav-S-Dpnnxl (Pre-Pen). Drug dose challenge to AMOXICILLIN was NEGATIVE. Chronic Conditions *See Chronic Conditions HPI chronic conditions *See Chronic Conditions HPI PCN Allergy Marge is a 4 7 year old seen in the office for further evaluation of her history of rashes and hives associated with penicillin and she has an underlying diagnosis of allergic rhinitis.Marge reports that she is doing well and she has no allergy symptoms to report.Antibiotic skin testing with the reagents Penicillin G, Penicilloic acid, Penicilloyl- pjiq-K-Blyfge (Pre-Pen) and ampicillin. Marge was initially tested by prick-puncture technique at full concentration and there was no significant reactivity. The histamine control was positive with a wheal (6x6 mm) and a significant erythematous flare (8x8 mm. The saline control was nonreactive. Marge was then tested to the reagents by intradermal technique done in duplicate and again she showed no significant allergen reactivity. Following the negative testing results, Marge was given a total of 750 mg oral dose of amoxicillin in divided doses and observed for 2 hours. At the time, Marge showed no symptoms or develop any adverse reactions.PLEASE REFER TO SCANNED ANTIBIOTIC SKIN TESTING PROCEDURE NOTE FOR SPECIFIC PROCEDURE DETAILSNo cough, wheezing or shortness of breath.No fevers, vomiting or diarrhea. Allergies Marge is a [age] year old female seen for further evaluation for allergies and she has an underlying diagnosis of asthma.Zandra is doing well and she has no complaints. She likely the Breztri inhaler and she can tell that it is helping. She currently has no complaints of cough, wheezing or shortness of breath. She experiences seasonal allergy symptoms of runny nose, congestion, sneezing fits. Due to the post-nasal drainage, she often has a sore throat and frequently clears her throat. She ears are often full. She also has a headache & sinus pressure. She often has a hoarse voice. She takes Flonase and Claritin for the symptoms with mild relief. She uses the Nettipot which helps.No fevers, vomiting or diarrhea.03/26/2023 Skin testing to environmental allergens was 2+to grasses (Stuart, Orchard, Dahlia, Redtop, Fescue, [place], Sweet Vernal) and Dermatophagoides farinae & Dermatophagoides pteronyssinus and negative to cat, dog, cockroach, guinea pig, mixed feathers, mouse, rabbit, trees (White tomas, Birch, Elm, [place], Maple, [place], Red [place], Black [place], [place], [place], [place], [place], Sh[place] & [place]), weeds (Cocklebur, Dock [place], Gambian Plantain, Lambs Quarter, Sanders elder, Ragweed, Tongan Thistle, Sagebrush, Pigweed & Kochia), grasses (B[place], B[place], Agusto, [place] Blue, [place] Pollen), molds (Aspergillus fumigatus, Serena, [place] Smut, Epicoccum, Alternaria, Cladosporium, Aureobasidium, Drechslera, Fusarium, Aspergillus mix, Phoma, Penicillium, Botrytis cinerea, Geotrichum candidum, Rhodotorula, Sarocladium strictum, Stemphylium, solani, Trichophyton) *Percutaneous skin tests administered with Multi-Test PC, [place]; Intradermal testing administered with 0.01 ml via 28 gauge needle; Testing Extracts from [employer] Recurrent Illnesses Marge is a 37 year old female seen for a 4-week follow-up after starting Breztri for a low FEV1.Zandra can tell that her chest seems jewelry finisher or easier to breath which she did not realize was an issue for her. She currently has no complaints of cough, wheezing or shortness of breath. She used the samples of Breztri.She experiences seasonal allergy symptoms of runny nose, congestion, sneezing fits. Due to the post-nasal drainage, she often has a sore throat and frequently clears her throat. She ears are often full. She also has a headache & sinus pressure. She often has a hoarse voice. She takes Flonase and Claritin for the symptoms with mild relief. She uses the Nettipot which helps.No fevers, vomiting or diarrhea. Recurrent Infections Marge mcclure s a 37 year old female seen in consultation for recurrent infections.Zandra details that in the last 3-4 years she is prone to severe illnesses. When she gets a cold, it runs her down. She easily gets sick and it gets bad fast. It always goes directly into her chest. She has noticed that with seasonal changes that she easily gets a cold. She often requires antibiotics to clear the infection. About 6 weeks ago (12/21/27), she was admitted to [facility] for 4 days for bilateral pneumonia requiring IV antibiotics and supplemental O2. About a week prior, she sought emergent care at a local urgent care because her O2 saturation was 85% at home. She was diagnosed with bronchitis and discharged with oral antibiotics. Zandar has had COVID at least twice and she had mild symptoms. She has no family history of immunodeficiency diseases. She is not aware of any blood work done to evaluate her immune system. She has no complaints of weight loss/gain, joint pains.She also reports seasonal allergy symptoms of runny nose, congestion, sneezing fits. Due to the post-nasal drainage, she often has a sore throat and frequently clears her throat. She ears are often full. She also has a headache & sinus pressure. She often has a hoarse voice. She takes Flonase and Claritin for the symptoms with mild relief. She uses the Nettipot which helps.She currently has no complaints of cough, wheezing or shortness of breath. She was prescribed Symbicort by the Manufacturing Plant Controller at the hospital but she did not fill it because it cost $75 which is too expensive for her. She was prescribed Spiriva but Dr. Lopez CHEMICAL TEST ENGINEER and she developed hives on her torso so she stopped it. No fevers, vomiting or diarrhea. Hospital Follow-Up The patient w as seen today for a hospital follow-up visit. Details regarding this most recent admission include: 37 y/o female presents for hospital f/up. She presented to ED on 12/20 with cough and dyspnea. She was admitted from 12/21-12/23 and dx with pneumonia, she was treated with IV abx and d/c with Levaquin and prednisone. She has finished prednisone, has one day left of Levaquin. She still notes occasionally productive cough, minimal wheezing. Was unable to case picker Symbicort due to cost, is using albuterol occasionally. Denies fever, body aches, or chills. Does note fatigue. She has an appointment with pulmonology scheduled next month. She was started on metformin 500 mg with evening meal and is tolerating this well. Is to schedule an appt with sales inspector at [place], requires referral for this. She has been trying to limit carbs and sugars in her diet. No other concerns today. Patient encounter sx started 2 w eeks ago: coughing, sl productive, no fever, chills, seen at , started on antibx and inhaler, not better so called and was started on medrol dose pack on day 3 of her medrol, has been using inhaler at least once daily, still coughing acute visit Chief complaint: diarrhea. Pt presents with 6 day history of diarrhea. Notes 3-6 stools per day. No blood or mucus. Upper abdominal cramping. No fever, chills, nausea, vomiting. No recent travel. No recent antibiotic use or hospitalizations. Yesterday had episode where she felt weak, went to PT place by her work and BP 150/94. Drank water and felt better. Taking Imodium and following BRAT diet with some improvement. Patient encounter 1) rash on ank le, has used OTC topical steroid wo improvement, scaly and itchy2) prominent varicose veins, do not hurt but has had them for a while and feels very self conscious about them3) met w sales inspector briefly but unable to ffup. interested in bariatric surgery Establish care Pt presents to [facility] with Dr. Judd with OBGYN, last Pap Smear 2019, normal. Has custody of sister in law 2 children age 3 and 6. Very stressed regarding this situation.Has anxiety and depression. 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 She is feeling a little better.Most depressed about her weight. Has little time for exercise. Also has pre dm, last A1c 2019 6.0. Denies polyuria, polydipsia, polyphagia.Diagnosed with bilateral pneumonia at [facility] urgent care earlier this week.Covid negative. On doxycycline. Prescribed prednisone but not taking. Using albuterol PRN with some relief.Still short of breath, wheezing and cough. No fever. Appetite is good. Drinking plenty of fluids. Functional Status Date Functional Assessmen t No Information Instructions Date Instruction Additional Infor abdirizak check labs: blood co unt, chemistry, fasting lipid panelcont to try to eat healthy, keep active/exercise regularlykeep well hydrated, wear sun protection when outdoorshealth maintenance reviewed Related to Encounter for general adult medical examination without abnormal findings check A1c, adjust me ds as needed, continue to try to eat healthy and keep activewill address the benefit of starting TOBY inhibitor for renal protection and statin after we have reviewed labs at next visit Related to Type 2 diabetes mellitus with hyperglycemia trial contravereassess at next v isit Related to Body mass index [BMI] 45.0-49.9, adult - Recommend treating the rash symptomatically & note for improvement of the symptoms.- For the dermatitis, recommend Mometasone ointment twice a day to the affected area. Related to Pruritic dermatitis - Recommend clinical ly monitoring & treating accordingly.- Previous spirometry showed no evidence of intrathoracic airway obstruction with an FEV1 of 2.60 L (84%) and there is no significant bronchodilatory response of 5% with an FEV1 of 2.73 L (88%). Lung age of >84 years old. Based on her clinical history & clinical findings, recommend continuing with the triple therapy of ICS/LABA/LAMA to treat for airway inflammation. - Previously discussed at length with Zandra that her history of recurrent infection may be due to a combination of factors which include (1) a low lung function that predisposes to illnesses quickly affecting her lungs (2) chronic lung changes due to recurrent sinopulmonary infections. Recommend closely monitoring Marge this winter viral-season to note if she has still have recurrent pneumonia infections after treat the airway inflammation.- For the low FEV1, recommend continuing with Trelegy 200 once inhalation once a day, rinse mouth with each dose. Related to Recurrent pneumonia - Recommend continui ng with dust mite precautions. Related to Allergic rhinitis due to house dust mite - Recommend clinical ly monitoring and treating accordingly.- For the allergic rhinitis, recommend Zyrtec 10 mg once a day. Related to Seasonal allergic rhinitis due to pollen - Recommend clinical ly monitoring & treating accordingly. Related to History of penicillin allergy lifestyle changes encouraged Rel ated to Body mass index [BMI] 45.0-49.9, adult check A1c, renal fun ctions, urine for microalbuminstart mounjaro, statin, TOBY inhibitordeclines sales inspector referral for noweducated re: need for yearly eye examsreassess at next visit Related to Type 2 diabetes mellitus without complication, without long-term current use of insulin - Discussed with Luzma ga that skin testing for PrePen which is bottling equipment sales representative of the major determinant in penicillin & Pen G bottling equipment sales representative of the minor determinant group was negative. Discussed at length with Marge skin testing with PrePen identifies up to 90% of individuals who have an IgE-mediated penicillin allergy. The negative predictive value is high in that patients that test negative are not likely to react when treated with penicillin. With the additional testing to Pen G, it identifies up to 97% of patient with an IgE-mediated penicillin allergy. Reassuringly, Marge's skin testing is negative with no evidence of sensitization to the penicillin groups.- Reassured Marge that she tolerated a drug dose challenge with Amoxicillin which confirms the absence of an IgE-mediated drug allergy.- Advised Marge that her drug allergy label to Penicillin will be removed. Related to Penicillin allergy - Recommend continui ng with dust mite precautions. Related to Allergic rhinitis due to house dust mite - Recommend clinical ly monitoring and treating accordingly.- For the allergic rhinitis, recommend Zyrtec 10 mg once a day. Related to Seasonal allergic rhinitis due to pollen - Discussed with Luzma ga that she has chronic sinus infections and it would be optimal to skin test to determine if there are common environmental allergens that may be triggering the symptoms so that she may be treated accordingly. Marge confirmed that she stopped taking antihistamines for at least 7 days prior to her visit in preparation for testing. It was agreed upon to proceed with skin testing which was administered with no issues.- Discussed with Marge that her percutaneous skin testing was negative for the 56 common environmental allergens tested for Danders, Weeds, Trees, Grasses, Dust mites & Molds. Recommend proceeding with the selected Intradermal testing for Cat, Dog, Ragweed, Trees, Dust Mites & Molds to determine if she is truly negative to the environmental allergens tested.- Discussed at length with Marge that she had limited allergic sensitization to grasses & dust mites. Extensively reviewed environmental control & provided educational material. - Discussed the options with environmental management, medical therapy with oral antihistamines, nasal corticosteroids, nasal washes and immunotherapy per the patient educational material. - For the allergies, recommend treating with a combination therapy of Zyrtec 10 mg once a day (an antihistamine) & Singulair 10 mg once a day (an anti-inflammatory for allergies).- Advised Marge that she may increase Zyrtec to twice a day for high-dose therapy for break-thru allergy symptoms or a seasonal exacerbation of her allergies. Related to Seasonal allergic rhinitis due to pollen - Reviewed HOUSE DUS T MITE control measures: Keep pillows for only a year, mattress/box spring <7 years. No feather or down filled bedding.Consider removing [id number] carpet from bedroom.Lowest humidity possible indoors is ideal and should not be supplemented in the winter by humidifiers. Central air conditioning also reduces indoor humidity in the summer months. Related to Allergic rhinitis due to house dust mite - Recommend clinical ly monitoring and treating accordingly.- Previous spirometry which is dramatically improved. There is no evidence of intrathoracic airway obstruction with an FEV1 of 37 2.60 L (84%) and there is no significant bronchodilatory response of 5% with an FEV1 of 2.73 L (88%). Lung age of >84 years old. Based on her clinical history & clinical findings, recommend continuing with the triple therapy of ICS/LABA/LAMA to treat for airway inflammation. - Previously discussed at length with Zandra that her history of recurrent infection may be due to a combination of factors which include (1) a low lung function that predisposes to illnesses quickly affecting her lungs (2) chronic lung changes due to recurrent sinopulmonary infections. Recommend closely monitoring Marge this winter viral-season to note if she has still have recurrent pneumonia infections after treat the airway inflammation.- For the low FEV1, recommend continuing with Breztri 160 2 puffs twice a day, rinse mouth with each dose. Related to Recurrent sinus infections Recommend the Flu Vaccine - Discussed with Luzma rinaldi that she was started on Brezti for her low FEV1 4 weeks ago, a spirometry was administered to assess if the airway inflammation is improved after starting the daily maintenance ICS.- Discussed with Zandra the significance of the spirometry which is dramatically improved. There is no evidence of intrathoracic airway obstruction with an FEV1 of 37 2.60 L (84%) and there is no significant bronchodilatory response of 5% with an FEV1 of 2.73 L (88%). Lung age of >84 years old. Based on her clinical history & clinical findings, recommend continuing with the triple therapy of ICS/LABA/LAMA to treat for airway inflammation. - Previously discussed at length with Zandra that her history of recurrent infection may be due to a combination of factors which include (1) a low lung function that predisposes to illnesses quickly affecting her lungs (2) chronic lung changes due to recurrent sinopulmonary infections. Recommend closely monitoring Marge this winter viral-season to note if she has still have recurrent pneumonia infections after treat the airway inflammation.- Also discussed at length with Zandra that she is young and she has a significant history for recurrent sinopulmonary infections and a very low FEV1. Recommend immune screening labs to assess for her immune status which includes a CBC, CMP, serum immunoglobulins IgG, IgG subclasses, IgA, IgM, IgE, Antibody titers for Strep pneumonia & Tetanus IgG antibodies. Will await pending results.- For the low FEV1, recommend continuing with Breztri 160 2 puffs twice a day, rinse mouth with each dose. Related to Recurrent pneumonia - Discussed at [facility] with Zandra that unfortunately skin testing would have to be deferred because she is taking Singulair. I requested that all antihistamines be discontinued 7 days prior to her scheduled follow-up in preparation for skin testing. - Discussed with Zandra that it would be most optimal to skin test her so we can identify her specific environmental allergies and appropriate environmental control may be implemented and she may be treated accordingly. Related to Seasonal allergies Recommend the Flu Vaccine - Discussed at [facility] with Zandra that unfortunately skin testing would have to be deferred because her FEV1 is low and recommend establishing respiratory stability prior to skin testing. I requested that all antihistamines be discontinued 7 days prior to her scheduled follow-up in preparation for skin testing. - Discussed with Zandra that it would be most optimal to skin test her so we can identify her specific environmental allergies and appropriate environmental control may be implemented and she may be treated accordingly. - Also discussed with Zandra that it is more pertinent to identify if she has an underlying immunodeficiency as a cause for her recurrent infections and then we can at a later date test her for allergies. Related to Seasonal allergies - Discussed with Luzma rinaldi that due to her history of recurrent lung infections a spirometry was administered to assess if there is any underlying airway inflammation or potential chronic lung changes as the cause for the symptoms.- Discussed with Zandra the significance of the spirometry. There is moderate evidence of intrathoracic airway obstruction with an FEV1 of 37 % and there is significant bronchodilatory response of 14%. There is no evidence to suggest an underlying needed for an ICS. Lung age of >84 years old. Based on her clinical history & clinical findings, recommend starting a triple therapy of ICS/LABA/LAMA to treat for airway inflammation. - Also discussed at length with Zandra that her history of recurrent infection may be due to a combination of factors which include (1) a low lung function that predisposes to illnesses quickly affecting her lungs (2) chronic lung changes due to recurrent sinopulmonary infections.- Also discussed at length with Zandra that she is young and she has a significant history for recurrent sinopulmonary infections and a very low FEV1. Recommend immune screening labs to assess for her immune status which includes a CBC, CMP, serum immunoglobulins IgG, IgG subclasses, IgA, IgM, IgE, Antibody titers for Strep pneumonia & Tetanus IgG antibodies.- For the low FEV1, recommend Breztri 160 2 puffs twice a day, rinse mouth with each dose. [samples of Breztri provided]- Recommend follow-up in 4-6 weeks to assess for improvement of Zandra's FEV1. Related to Recurrent pneumonia Continue Metformin n ightly, will recheck A1c in 3 months. Related to Type 2 diabetes mellitus without complication, without long-term current use of insulin Reviewed records and discussed medications. Related to Hospital discharge follow-up Finish course of Lev aquin as planned, start Spiriva. Inhale 2 puffs once daily, rinse mouth after use. Follow up with pulmonology as scheduled. Will send an order for a nebulizer machine to [facility], they will call you about this. Will send DuoNeb solution to your pharmacy to use as needed, can use this every 8 hours as needed for shortness of breath or wheezing. Related to Acute pneumonia neb treatment given, CXR neg on my reviewcomplete medrol dose pack, continue to use inhaler 3x dailycan take mucinex, push fluidscall me next week with update Related to Acute cough Likely viral etiolog y.Check CBC and CMP.Recommend Imodium as needed and BRAT diet.Should resolve within the next week, if symptoms persists or worsen please notify us. Related to Acute diarrhea Medication management refer to bariatric surgery Relat ed to Severe obesity (BMI >= 40) refer to vascular surgery Relate d to Asymptomatic varicose veins trial lotrisone twic e daily for the next 2 wkscall me with update Related to Rash Offered trial of John Vega pt declined.Meet with sales inspector. Related to Obesity, Class III, BMI 40-49.9 (morbid obesity) Stable. Continue Celexa 20mg trevor ly. Related to Anxiety Stable continue the celexa 20mg daily and bupropion 150mg twice daily. Related to Depression, unspecified Complete the doxycyc line. Start the prednisone this will help with the wheezing.use the albuterol four times today. Related to Pneumonia of both lungs due to infectious organism, unspecified part of lung Check A1c. Limit car bohydrates and sweets in diet.Try to exercise 30 minutes 3-5 times per week.Status: Meeting treatment plan goals. Goals: Your goal is to monitor your diabetes. Barriers: No barriers to goal achievement have been identified. Related to Prediabetes Check fasting labs i n near future.Pap Smear up to date.Flu vaccine once pneumonia has cleared. Discussed limiting portion sizes and exercising more.Follow up 6 months. Related to Encounter for general adult medical examination without abnormal findings Medication management Assessments Type Assessment Date No Information Patient Care Teams Name Effective Dates (start - stop) Status Members No Information
--- OUTSIDE RECORDS SUMMARY | 2024-12-07 19:23 | XMS_ITS | Clinical Summary ---
Author Organization [facility] Address [address] [place] [address] Care Team Providers Care Floor Manager Name Role Phone Unavailable Primary Care Provider Unavailabl e Source Comments [facility],non-[facility] Affiliates and Associated Physician Practices is amultiple site organization consisting of ambulatory clinics and hospital sitesin [place], [place], [place] and [place]. This disclosure is being madepursuant to the Care Everywhere program and may not contain all information available regarding this patient. Last updated 18.[facility] Allergies Active Allergy Reactions Criticality Noted Date Comments Amoxicillin Rash Medium 03/05/2017 Medications * Be aware that medications may not be up to date on this document. Alwaysverify current medications with the patient. albuterol HFA (VENTOLIN HFA) 108 (90 Base) MCG/ACT inhaler INHALE 2 PUFFS BY MOUTH EVERY 4 HOURS NEEDED FOR SHORTNESS OF BREATH. USE WITH SPACER CHAMBER 1 Active citalopram (CELEXA) 20 MG tablet Take 20 mg by mouth 1 Active etonogestrel-et hinyl estradiol (NUVARING) 0.12-0.015 MG/24HR vaginal ring Insert one ring for 3 weeks, remove for 1 week, repeat again. 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 Gender Identity Not on file Sexual Orientation Not on file Last Filed Vital Signs Vital Sign Reading Time Taken Comments Blood Pressure 104/66 02/21/2021 9:17 AM CDT Pulse 77 02/21/2021 9:17 AM CDT Temperature 36.4 C (97.5 F) 02/21/2021 9:17 AM CDT Respiratory Rate 14 02/21/2021 9:17 AM CDT Oxygen Saturation 97% 02/21/2021 9:17 AM CDT Inhaled Oxygen Concentration - - Weight 127 kg (280 lb) 02/21/2021 9:17 AM CDT Height 162.6 cm (5' 4) 02/21/2021 9:17 AM CDT Body Mass Index 48.06 02/21/2021 9:17 AM CDT Plan of Treatment Health Maintenance Due Date Last Done Comments HIV SCREENING 2001 HEPATITIS C SCREENING 03/09/2004 DTAP/TDAP/TD VACCINES (1 - Tdap) 2005 HEPATITIS B VACCINE (1 of 3 - 19+ 3-dose series) 2005 HPV VACCINE (1 - 3-dose SCDM series) 2013 COVID-19 VACCINE (1 - 2023-2 5 season) 2023 DEPRESSION SCREENING 04/29/2024 INFLUENZA VACCINE (#1) 2024 9, 01/31/2018 ZOSTER VACCINE (1 of 2) 2036 HIB VACCINE Aged Out No longer eligi ble based on patient's age to complete this topic MENINGOCOCCAL (Group B) VACCINE SHARED DECISION-MAKING Aged Out No longer eligible based on patient's age to complete this topic MENINGOCOCCAL GROUPS A/C/Y/W VACCINE Aged Out No longer eligible b ased on patient's age to complete this topic PNEUMOCOCCAL VACCINE Aged Out No long er eligible based on patient's age to complete this topic Insurance [employer] [id number]
--- OUTSIDE RECORDS SUMMARY | 2024-12-07 19:25 | XMS_ITS | Continuity of Care Document ---
Author Organization [facility] Address [address] [place] [address] Phone Care Team Providers Care Torts Law Professor Name Role Phone Cheyanne Lopez MD Unavailable [...] INITIAL ASSESSMENT AND INTERVENTION, INDIVIDUAL, EACH 15 IN BODY MASS INDEX DOCD SYST BP LT 130 MM HG DIAST BP < 80 MM HG PREVENTATIVE-EST: 18-39 OFFICE [id number]-[id number]-[id number] BODY MASS INDEX DOCD SYST BP LT 130 MM HG DIAST BP < 80 MM HG OFFICE VCPAO-QAN-CCAREXSL BODY MASS INDEX DOCD SYST BP LT 130 MM HG DIAST BP 80-89 MM HG BODY MASS INDEX DOCD SYST BP >= 140 MM HG6 IT DIAST BP 80-89 MM HG Ingestion Challenge Test, Inital 120 Min utes Allergy Testing, Any Combination Of Perc utaneous A OFFICE [id number] OFFICE [id number]-LYQ-SSMNAIGS BODY MASS INDEX DOCD SYST BP LT 130 MM HG DIAST BP 80-89 MM HG ALLERGY SKIN TESTS ALLERGY SKIN TESTS ID HEALTH RISK ASSESSMENT, PATIENT-FOCUSED OFFICE [id number]-YIF-[id number] BODY MASS INDEX DOCD SYST BP LT 130 MM HG DIAST BP 80-89 MM HG SPIROMETRY BEFORE & AFTER BRONCHODIALATO R MOUTHPIECE OFFICE URAFM-PTI-VAHA-MED BODY [facility]ASS [facility]DEX [facility] 130 MM HG [...] SPIROMETRY BEFORE & AFTER BRONCHODIALATO R OFFICE AIAWV-EKS-GYOUPNCB BODY MASS INDEX DOCD SYST BP GE 130 - 139MM HG DIAST BP < 80 MM HG Chest Xray, 2 Views COVID, Flu A, Flu B OFFICE PMPWT-GLY-SIYEBUET SYST BP LT 130 MM HG DIAST BP 80-89 MM HG CBC, INC PLATELETS AND DIFFERENTIAL COMPREHEN METABOLIC PANEL CMP ROUTINE VENIPUNCTURE OFFICE [id number]-WQT-[id number] SYST BP LT 130 MM HG DIAST BP < 80 MM HG NUTRITIONAL THERAPY; INITIAL ASSESSMENT AND INTERVENTION, INDIVIDUAL, EACH 15 IN Pt inelig neg scrn depres PREVENTATIVE-NEW: 18-39 [...] Diagnoses Date Provider Providers Copied on Encounter [facility], [address], [place], [place], [address] , [place] tel: [phone] [facility] No Information 5 John Edward. [address], [place], [place], [address], [place]. tel:[phone] [facility], [address], [place], [place], [address] , tel: [phone] [facility] No Information 5 John Cheyanne. [address], [place], [place], [address], [place]. tel:[phone] [facility], [address], [place], [place], [address] , [place] tel: [phone] [facility] IM Type 2 diabetes mellitus with hyperglycemiaSeve re obesity (BMI >= 40) 4 Agapito Taylor. [address], [address], [place], [place], [address], [place]. tel:[phone] Referring Provider: Cheyanne Lopez, [address], [place], [address] . tel:[phone] PREVENTATIVE- EST: 18-39 [facility], [address], [place], [place], [address] , [place] tel: [phone] [facility] IM preventive exam (chief complaint)C hronic Conditions (chief complaint) Type 2 diabetes mellitus with hyperglycemiaBody mass index [BMI] 45.0-49.9, adultEncounter for general adult medical examination without abnormal findings 4 John Edward. [address], [place], [place], [address], [place]. tel:[phone] Referring Provider: Cheyanne Lopez, [address], [place], [address] . tel:[phone] [facility], [address], [place], [place], [address] , [place] tel:[phone] [facility] No Information 4 John Edward. [address], [place], [place], [address], [place]. tel:[phone] OFFICE IDCYS-IOZ-HMU ANDED [facility], [address], [place], [place], [address] , [place] tel: [phone] [facility] Allergies (chief complaint) Allergic rhinitis due to house dust miteSeasonal allergic rhinitis due to pollenHistory of penicillin allergyRecurrent pneumoniaPruritic dermatitis 4 Lewis Elyra. [address], [address], [place], [place], [address], [place]. tel:[phone] Referring Provider: [address], [place], [address] . tel:[phone] OFFICE GSKZH-MQH-WUU [facility], [address], [place], [place], [address] , [place] tel:[phone] [facility] Chronic Conditions (chief complaint)c hronic conditions (chief complaint) Type 2 diabetes mellitus without complication, without long-term current use of insulinBody mass index [BMI] 45.0-49.9, adult 4 John Edward. [address], [place], [place], [address], [place]. tel:[phone] Referring Provider: [address], [place], [address] . tel:[phone] OFFICE JWFXY-DRO-SIA ANDED [facility], [address], [place], [place], [address] , [place] [phone] [facility] PCN Allergy (chief complaint) Penicillin allergySeasonal allergic rhinitis due to pollenAllergic rhinitis due to house dust mite 4 Lewis Elyra. [address], [facility] [address], [place], [place], [address], [place]. tel:[phone] Referring Provider: Cheyanne Lopez, [address], [place], [address] . tel:[phone] OFFICE ZBBQD-PGY-QOY [facility], [address], [place], [place], [address] , [place] tel:[phone] [facility] [place] Allergies (chief complaint) Recurrent sinus infectionsSeasona l allergic rhinitis due to pollenAllergic rhinitis due to house dust mite 3 Lewis Elyra. [address], [address], [place], [place], [address], [place]. tel:[phone] Referring Provider: [address], [place], [address] . tel:[phone] OFFICE FQMNP-TKA-VWI ANDED [facility], [address], [place], [place], [address] , tel:[phone] [facility] Recurrent Illnesses (chief complaint) Recurrent pneumoniaSeasonal allergies 3 Lewis Elyra. [address], [facility] [address], [place], [place], [address], [place]. tel:[phone] Referring Provider: [address], [place], [address] . tel:[phone] OFFICE ZZCOF-DHY-YRS P-MED [facility], [address], [place], [place], [address] , [place] tel: [phone] [facility] Recurrent Infections (chief complaint) Recurrent pneumoniaRecurren t sinus infectionsSeasona l allergies 3 Lewis Elyra. [address], [facility] [address], [place], [place], [address], [place]. tel:[phone] Referring Provider: [address], [place], [address] . tel:[phone] Transitional Care- First 7 Days Of Discharge [facility], [address], [place], [place], [address] , [place] tel: [phone] [facility] Follow-Up (chief complaint) Acute pneumoniaType 2 diabetes mellitus without complication, without long-term current use of insulinHospital discharge follow-up 3 Jhonatan Nagy. [address], [place], [place], [address], [place]. tel:[phone] Referring Provider: [address], [place], [address] . tel:[phone] OFFICE YVWYJ-ALU-VLB GAVIN [facility], [address], [place], [place], [address] , [place] tel: [phone] [facility] IM Patient encounter (chief complaint) Acute cough 3 John Edward. [address], [place], [place], [address], [place]. tel:[phone] Referring Provider: Cheyanne Lopez, [address], [place], [address] . tel:[phone] [facility], [address], [place], [place], [address] , tel: [phone] [facility] Acute upper respiratory infection, unspecified 2 John Edward. [address], [place], [place], [address], [place]. tel:[phone] Referring Provider: Cheyanne Lopez, [address], [place], [address] . tel:[phone] OFFICE MNVYM-UCW-KJE ANDED [facility], [address], [place], [place], [address] , tel: [phone] [facility] IM acute visit (chief complaint) Acute diarrhea 2 Erik Kongn. [address], [place], [place], [address], [place]. tel:[phone] Referring Provider: Cheyanne Lopez, [address], [place], [address] . tel:[phone] OFFICE OLWHU-OAK-SGU ANDED [facility], [address], [place], [place], [address] , [place] tel: [phone] [facility] IM Patient encounter (chief complaint) Severe obesity (BMI >= 40)Asymptomatic varicose veinsRashEncounte r for general adult medical examination without abnormal findingsHyperglyc emiaAnemia, unspecified type 2 John Edward. [address], [place], [place], [address], [place]. tel:[phone] Referring Provider: [address], [place], [address] . tel:[phone] [facility], [address], [place], [place], [address] , [place] tel: [phone] [facility] Obesity, Class III, BMI 40-49.9 (morbid obesity)Prediabet es 2 Agapito Taylor. [address], [place], [place], [address], [place]. tel:[phone] Referring Provider: Julianne García, [address], [place], [address] . tel:[phone] [facility], [address], [place], [place], [address] , tel: [phone] [facility] IM Cough 2 John Edward. [address], [place], [place], [address], . tel:[phone] PREVENTATIVE- NEW: 18-39 [facility], [address], [place], [place], [address] , tel: [phone] [facility] Establish care (chief complaint) AnxietyPrediabete sPneumonia of both lungs due to infectious organism, unspecified part of lungEncounter for general adult medical examination without abnormal findingsDepressio n, unspecifiedObesit y, Class III, BMI 40-49.9 (morbid obesity) 1 Erik Harper [address], [place], [place], [address], [place]. tel:[phone] Referring Provider: Cheyanne Lopez, [address], [place], [address] . [phone] [facility], [address], [place], [place], [address] , tel: [phone] [facility] No Information 1 Erik Kebede. [address], [place], [place], [address], . tel:[phone] Family History Family Member Type Diagnosis Age At Onset Mother Problem Obesity Father Problem Diabetes mellitus Mother Problem Diabetes mellitus Immunizations Vaccine Date Status Comments J&J COVID/Adenovirus Vaccine [id number] viral particles/0.5mL administered Source: Other Prov ider Payers Payer name Insurance type Covered republican ID Authoriza tijulia(s) No Information Social History [...] was NEGATIVE to Penicillin G & Penicilloyl- dofy-Z-Bejjkk (Pre-Pen). Drug dose challenge to AMOXICILLIN was [...] the reagents Penicillin G, Penicilloic acid, Penicilloyl- crkr-F-Dmmkyc (Pre-Pen) and ampicillin. Marge was initially tested [...] 2+to grasses (Stuart, Orchard, Dahlia, Redtop, Fescue, Bloom[place], Sweet Vernal) and Dermatophagoides farinae & Dermatophagoides pteronyssinus and negative to cat, dog, cockroach, guinea pig, mixed feathers, mouse, rabbit, trees (White tomas, Birch, Elm, Shannon, Maple, Sidon, Red Beaumont, Black Olive [place], [place], [place], [place], Mccarr, Doss & [place]), weeds (Cocklebur, Dock Cayucos, Yemeni Plantain, Lambs Quarter, Sanders elder, Ragweed, Iraqi Thistle, Sagebrush, Pigweed & Kochia), grasses (Bahia, Bermuda, Agusto, Kentucky Blue, Stuart & [place] Pollen), molds (Aspergillus fumigatus, Serena, [place] Smut, Epicoccum, Alternaria, Cladosporium, Aureobasidium, Drechslera, Fusarium, Aspergillus mix, Phoma, Penicillium, Botrytis cinerea, Geotrichum candidum, Rhodotorula, Sarocladium strictum, Stemphylium, solani, Trichophyton) *Percutaneous skin tests administered with [employer], [employer]; Intradermal testing administered with 0.01 ml via 28 gauge needle; Testing Extracts from [facility] Recurrent Illnesses Marge is a 37 year old female seen for a 4-week follow-up after starting Breztri for a low FEV1.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 About a week prior, she sought emergent care at a local urgent care because her O2 saturation was 85% at home. She was diagnosed with bronchitis and discharged with oral antibiotics. Zandra has had COVID at least twice and [...] breath. She was prescribed Symbicort by the Marine Service Operator at the hospital but she did not fill it because it cost $75 which is too expensive for her. She was prescribed Spiriva but Dr. Lopez [employer]PER[employer] and she developed hives on her torso [...] productive cough, minimal wheezing. Was unable to pick remover Symbicort due to cost, is using albuterol occasionally. Denies fever, body aches, or chills. Does note fatigue. She has an appointment with pulmonology scheduled next month. She was started on metformin 500 mg with evening meal and is tolerating this well. Is to schedule an appt with new car make ready mechanic at [facility], requires referral for this. She has been [...] very self conscious about them3) met w new car make ready mechanic briefly but unable to ffup. interested in bariatric surgery Establish care Pt [facility] with Dr. Judd with OBGYN, last Pap Smear 2019, normal. Has custody of sister in law 2 children age 3 and 6. Very stressed regarding this situation.Has anxiety and depression. 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 She is feeling a little better.Most depressed about her weight. Has little time for exercise. Also has pre dm, last A1c 2019 6.0. Denies polyuria, polydipsia, polyphagia.Diagnosed with bilateral pneumonia at [facility] urgent care earlier this week.Covid negative. On [...] urine for microalbuminstart mounjaro, statin, TOBY inhibitordeclines new car make ready mechanic referral for noweducated re: need for yearly eye examsreassess at next visit Related to Type 2 diabetes mellitus without complication, without long-term current use of insulin - Discussed with Luzma ga that skin testing for PrePen which is bilingual sales representative of the major determinant in penicillin & Pen G bilingual sales representative of the minor determinant group [...] No feather or down filled bedding.Consider removing kthy-au-mdjt carpet from bedroom.Lowest humidity possible indoors is [...] Related to Recurrent pneumonia - Discussed at [facility] with Zandra that unfortunately skin testing [...] Recommend the Flu Vaccine - Discussed at [facility] with Zandra that unfortunately skin testing would [...] trial of John Vega pt declined.Meet with new car make ready mechanic. Related to Obesity, Class III, BMI 40-49.9 [...]
[2024-12-07 19:28] VITALS: BP 140/60; PULSE 105; RESP 18; TEMP 36.9; O2SAT 98
--- NOTE | 2024-12-07 19:38 | ED_ITS ---
HPI - Abdominal Pain General Chief Complaint: Nausea/Vomiting/Diarrhea Stated Complaint: vomiting/chest tightness/ Time Seen by Provider: 12/07/24 19:21 Source: patient Mode of arrival: ambulatory Limitations: no limitations History of Present Illness HPI narrative: Patient is a 39-year-old female who presents with abdominal cramping, vomiting and diarrhea all day. Patient states she had a sandwich last night but it was nothing out of the ordinary. Reports vomiting approximately 7 times and diarrhea 10 times. States abdominal pain has been a dull ache, cramping and then at times is sharp stabbing radiating to her back. Patient has history of cholecystectomy. Patient also concerned that when she lays down her chest feels heavy and her oxygen has dipped to 92%. Patient states she has a barely been able to keep Gatorade down and is very thirsty and fatigued. No other sick contacts. Related Data Home Medications ?Medication ?Instructions ?Recorded ?Confirmed ?Last Taken ?Type albuterol sulfate 90 mcg/actuation 2 - 4 puff inhalation Q4-6H PRN 12/20/22 06/26/23 Unknown History aerosol inhaler Shortness Of Breath Or Wheezing citalopram 40 mg tablet 40 mg PO HS 12/20/22 06/26/23 Unknown History atorvastatin 10 mg tablet 10 mg PO DAILY 06/26/23 06/26/23 Unknown History etonogestrel 0.12 mg-ethinyl See Rx Instructions .Route .COMPLEX 06/26/23 06/26/23 Unknown History estradiol 0.015 mg/24 hr vaginal ring (NuvaRing) lisinopril 5 mg tablet mg 10/22/24 Unknown History Allergies Allergy/AdvReac Type Severity Reaction Status Date / Time amoxicillin Allergy Mild Rash Verified 12/07/24 19:28 nickel Allergy Mild Rash Verified 12/07/24 19:28 tiotropium (From Spiriva Allergy Mild Hives Verified 12/07/24 19:28 with HandiHaler) poppyseed oil AdvReac Intermediate Nausea and Verified 12/07/24 19:28 Vomiting Review of Systems Review of Systems: All systems reviewed & are unremarkable except as noted in HPI and below Constitutional: Constitutional: Denies body ache(s), Denies chills, Denies fatigue, Denies fever(s), Denies headache(s), Denies malaise and Denies weakness Eyes: Eyes: Denies blurry vision, Denies irritation and Denies loss of vision ENT: Denies otalgia, Denies headache(s), Denies nasal discharge, Denies sinus pain and Denies sore throat Cardiovascular: Cardiovascular: Denies chest pain, Denies irregular heart rhythm and Denies dyspnea Respiratory: Respiratory: Denies dyspnea Gastrointestinal: Gastrointestinal: Reports abdominal pain, Denies melena, Denies hematochezia, Reports diarrhea, Reports nausea and Reports vomiting Musculoskeletal: Musculoskeletal: Denies back pain, Denies myalgias and Denies arthralgias Integumentary/Breasts: Skin/Breast: Denies pruritus and Denies rash Neurologic: Denies headache(s), Denies loss of vision and Denies weakness Psychiatric: Psychiatric: Reports no additional psychiatric complaints Endocrine: Endocrine: Denies fatigue PMFSH Past Medical History Medical History Asthma Type 2 diabetes mellitus Depression with anxiety Surgical History Surgical History History of cholecystectomy (01/2017) History of dilation and curettage (05/2018) Family History Family History Other Family history non-contributory Social History Social History Social History: Surrogate medical decision maker: Ramy García, spouse. Code status: Full code. Smoking status: Never smoker Second hand tobacco smoke exposure: No Alcohol intake: never Substance use: never Lack of Transportation: No Lack of Food: Sometimes True Current Housing: I Have Housing Concerned About Future Housing: No Difficulty Paying Gas/Electric Bills: YES Difficulty Paying for Meds: No Currently Unemployed: No Education: Associate Degree Difficulty w/ Childcare or Family Care: No Additional living arrangements comments: Lives with spouse and 2 young children ages 4 and 7. Additional occupation/education comments: Works at a [employer]. Spiritual care concerns: No Comments At time of signature, agree with nursing past medical, surgical, social and family history. There is no relevant family history pertinent to the presenting complaint. Exam Const: General: cooperative, healthy appearing, comfortable, no acute distress and well nourished Nutritional Appearance: well nourished Orientation/consciousness: patient oriented x3 Limitations: no limitations HENMT: Head: normal to inspection, normocephalic and atraumatic Ears: hearing grossly normal bilaterally and external ears normal Face/Nose/Sinus: Normal external nose present, normal facial exam and face symmetric Face and sinus: normal facial exam and face symmetric Mouth: Yes lip normal Eyes: General: appearance normal, both eyes and all related structures Alig nment and Position: alignment normal and position normal Periorbital: periorbital findings normal Eyelids: eyelids normal Pupils: Equal, round and reactive pupils present EOM: EOMs intact bilaterally Neck: Neck: normal visual inspection, full ROM and supple Chest: Chest palpation & inspection: normal inspection of the chest Resp: Effort & Inspection: normal respiratory effort and able to speak in complete sentences Auscultation: clear to auscultation bilaterally, no crackles, no rales, no rhonchi and no wheezes Cardio: Rate: tachycardic Rhythm: regular rhythm Heart sounds: S1 normal heart sound present and S2 normal heart sound present GI: Inspection: normal to inspection GI Palp: Yes abdominal tenderness (upper abdomen) Auscultation: normal bowel sounds Rectal Exam: deferred Skin: General skin exam: normal color and no rashes or lesions noted Neuro: General: patient oriented x3 and moves all extremities Cranial nerves: Yes Equal, round and reactive pupils present Speech: normal speech Gait exam (Neuro): Normal gait present Extrem: General: normal to inspection, full ROM and no edema Psych: Appearance: grossly normal and well kempt Mental Status: mental status grossly normal Speech and movement: Normal speech and movement present Affect: normal affect Attitude: cooperative Thought process: Normal thought process present Course Course Emergency Course: Patient being transferred to [facility] for further workup and evaluation. Patient may need labs, IV fluids and/or advanced imaging for dehydration or other abdominal findings. Portions of this record may have been created with voice recognition software Level of Care: Express Care Visit Vital Signs Vital signs: Vital Signs Temperature 36.9 C 12/07/24 19:28 Pulse Rate 105 H 12/07/24 19:28 Respiratory Rate 18 12/07/24 19:28 Blood Pressure 140/60 12/07/24 19:28 Pulse Oximetry 98 12/07/24 19:28 Oxygen Delivery Room Air 12/07/24 19:28 Temperature 36.9 C 12/07/24 19:28 Pulse Rate 105 H 12/07/24 19:28 Respiratory Rate 18 12/07/24 19:28 Blood Pressure 140/60 12/07/24 19:28 Pulse Oximetry 98 12/07/24 19:28 Oxygen Delivery Room Air 12/07/24 19:28 Reviewed Transfer Transfered to: [place] Transportation: Other (Private auto) Transfer rationale: Patient being transferred to [facility] for further workup and evaluation. Patient may need labs, IV fluids and/or advanced imaging for dehydration or other abdominal findings. Accepting physician: Kyle KITCHEN MDM - Abdominal Pain MDM Narrative Medical decision making narrative: Patient being transferred to [facility] for further workup and evaluation. Patient may need labs, IV fluids and/or advanced imaging for dehydration or other abdominal findings. Offered patient Simeon for home but patient concern for dehydration and more severe illness so she will go to the ER. Differential Diagnosis Differential diagnosis: Likely abdominal pain, acute appendicitis and gastroenteritis Medical Records Attestation: I reviewed the patient's medical records. Discharge Plan Discharge Clinical Impression: Gastroenteritis Patient Disposition: Acute Care Hospital Condition: Stable Patient Language: Nicaraguan Prescriptions: No Action atorvastatin 10 mg tablet 10 mg PO DAILY etonogestrel-ethinyl estradiol [NuvaRing] 0.12-0.015 mg/24 hr ring See Rx Instructions .ROUTE .COMPLEX Rx Instructions: vag ring vaginally lisinopril 5 mg tablet citalopram 40 mg tablet 40 mg PO HS albuterol sulfate 90 mcg/actuation HFA aerosol inhaler 2 - 4 puff INHALATION Q4-6H PRN (Reason: Shortness Of Breath Or Wheezing) Follow-up/Referrals: Ailyn Myers, DIRECTOR SELECTION AND ADMINISTRATION [Primary Care Provider] - Time of Disposition: 19:54
== END 2024-12-07 19:47 | disposition short-term general hospital (02) ==
LOC: EXPTROY 19:23
PROVIDERS: Emergency Provider Nurse Practitioner Family
DX: K52.9 Noninfective gastroenteritis and colitis, unspecified (principal); E11.9 Type 2 diabetes mellitus without complications; J45.909 Unspecified asthma, uncomplicated; F41.9 Anxiety disorder, unspecified; F32.A Depression, unspecified
CPT/HCPCS: 99212; G0463

== ENCOUNTER 2024-12-07 20:06 | Emergency (ER) | payer OTHER, SELFPAY ==
--- NOTE | ~2024-12-07 | CT_ITS ---
CLINICAL INDICATION: Upper abdominal pain and leukocytosis COMPARISON: None. Reference is made to the lower cuts of a CTA of the chest performed on 12/20/2022 TECHNIQUE: Multiple contiguous axial images of the abdomen and pelvis were performed following the ad ministration of with 100 mL Omnipaque-350 intravenous contrast The dose-length product (DLP) was 1831.86 mGy-cm. Automated exposure control and iterative reconstruction technique were employed. FINDINGS/OBSERVATIONS: Visualized lower thorax: The bilateral lung bases are clear. The heart is of normal size, without pericardial effusion. Small hiatal hernia is present. Liver: A 2 cm focus of decreased attenuation is identified within segment 5 of the liver. This corres ponded to a hemangioma on 12/20/2022. The remainder of the liver demonstrates otherwise homogeneous enhancement and is enlarged measuring 2 3 cm in longitudinal dimension. Trace perihepatic fluid. Gallbladder and biliary system: The gallbladder is surgically absent. Pancreas: The pancreas enhances homogeneously without ductal dilatation. Spleen: The spleen enhances homogeneously and is enlarged measuring 15 cm in longitudinal dimension. Kidneys: The bilateral kidneys enhance symmetrically without hydronephrosis or renal calculi. Adrenal glands: Unremarkable. Gastrointestinal tract: Edematous mural thickening with surrounding inflammatory changes identified within the distal small b owel extending into the colon. Appendix: The appendix is of normal caliber (axial series, images 122 through 135) Vasculature: Unremarkable. Lymph nodes: No pathologically enlarged or morphologically suspicious lymph nodes within the retroperitoneum or at the root of the mesentery. Pelvic structures: The bladder is compressed, limiting its evaluation The uterus is anteverted and anteflexed. Free fluid is identified adjacent to the inferior margin of the right lobe of the liver. Free fluid is identified along the bilateral paracolic gutters, right greater than left. Free fluid within adjacent inflammatory changes identified within the root of the mesentery. Body wall and musculoskeletal: Trace degenerative disease within the lumbosacral spine. IMPRESSION: Edematous mural thickening within the distal small bowel, extending into the colon which suggests a d iffuse enteritis with significant inflammatory change within the root of the mesentery, the bilateral paracolic gutters and adjacent to the inferior most margin of the right lobe of the liver. Hepatosplenomegaly with a 2 cm (likely) hemangioma within segment 5 of the liver, for which contrast enhanced MRI versus ultrasound may be performed for confirmation. Reviewed, dictated and finalized at location A. IMPRESSION: Edematous mural thickening within the distal small bowel, extending into the co gloria which suggests a diffuse enteritis with significant inflammatory change wit hin the root of the mesentery, the bilateral paracolic gutters and adjacent to the inferior most margin of the right lobe of the liver. Hepatosplenomegaly with a 2 cm (likely) hemangioma within segment 5 of the live r, for which contrast enhanced MRI versus ultrasound may be performed for confi rmation.
--- OUTSIDE RECORDS SUMMARY | 2024-12-07 20:08 | XMS_ITS | Continuity of Care Document ---
Author Organization [employer] Address [address] [place] [address] Phone Care Team Providers Care Physical Therapy Coordinator Name Role Phone Cheyanne Lopez MD Unavailable [...] INITIAL ASSESSMENT AND INTERVENTION, INDIVIDUAL, EACH 15 ND BODY MASS INDEX DOCD SYST BP LT 130 MM HG DIAST BP < 80 MM HG PREVENTATIVE-EST: 18-39 OFFICE [id number]-[id number] BODY MASS INDEX DOCD SYST BP LT 130 MM HG DIAST BP < 80 MM HG OFFICE RZOYS-BMW-[id number] BODY MASS INDEX DOCD SYST BP LT 130 MM HG DIAST BP 80-89 MM HG BODY MASS INDEX DOCD SYST BP >= 140 MM HG6 IT DIAST BP 80-89 MM HG Ingestion Challenge Test, Inital 120 Min utes Allergy Testing, Any Combination Of Perc utaneous A OFFICE [id number] OFFICE [id number] BODY MASS INDEX DOCD SYST BP LT 130 MM HG DIAST BP 80-89 MM HG ALLERGY SKIN TESTS ALLERGY SKIN TESTS ID HEALTH RISK ASSESSMENT, PATIENT-FOCUSED OFFICE [id number]-OMN-XDZYGBER BODY MASS INDEX DOCD SYST BP LT 130 MM HG DIAST BP 80-89 MM HG SPIROMETRY BEFORE & AFTER BRONCHODIALATO R MOUTHPIECE OFFICE IMCHC-VVO-GUQK-MED [facility] 130 MM HG [...] SPIROMETRY BEFORE & AFTER BRONCHODIALATO R OFFICE [id number] BODY MASS INDEX DOCD SYST BP GE 130 - 139MM HG DIAST BP < 80 MM HG Chest Xray, 2 Views COVID, Flu A, Flu B OFFICE [id number]-HBS-[id number] SYST BP LT 130 MM HG DIAST BP 80-89 MM HG CBC, INC PLATELETS AND DIFFERENTIAL COMPREHEN METABOLIC PANEL CMP ROUTINE VENIPUNCTURE OFFICE [id number]-WWN-NITLZRYQ SYST BP LT 130 MM HG DIAST BP < 80 MM HG NUTRITIONAL THERAPY; INITIAL ASSESSMENT AND INTERVENTION, INDIVIDUAL, EACH 15 ND Pt inelig neg scrn depres PREVENTATIVE-NEW: 18-39 [...] Diagnoses Date Provider Providers Copied on Encounter [facility], [address], [place], [place], [address] , [place] tel: [phone] [facility] No Information 5 John Edward. [address], [place], [place], [address], [place]. tel:[phone] [facility], [address], [place], [place], [address] , tel: [phone] [facility] No Information 5 John Cheyanne. [address], [place], [place], [address], [place]. tel:[phone] [facility], [address], [place], [place], [address] , [place] tel: [phone] [facility] Type 2 diabetes mellitus with hyperglycemiaSeve re obesity (BMI >= 40) 4 Agapito Taylor. [address], [address], [place], [place], [address], [place]. tel:[phone] Referring Provider: Cheyanne Lopez, [address], [place], [address] . tel:[phone] PREVENTATIVE- EST: 18-39 [facility], [address], [place], [place], [address] , [place] tel: [phone] [facility] preventive exam (chief complaint)C hronic Conditions (chief complaint) Type 2 diabetes mellitus with hyperglycemiaBody mass index [BMI] 45.0-49.9, adultEncounter for general adult medical examination without abnormal findings 4 John Edward. [address], [place], [place], [address], [place]. tel:[phone] Referring Provider: Cheyanne Lopez, [address], [place], [address] . tel:[phone] [facility], [address], [place], [place], [address] , [place] tel:[phone] [facility] No Information 4 John Edward. [address], [place], [place], [address], [place]. tel:[phone] OFFICE JQMJP-IUX-DLE ANDED [facility], [address], [place], [place], [address] , [place] tel: [phone] [facility] [place] Allergies (chief complaint) Allergic rhinitis due to house dust miteSeasonal allergic rhinitis due to pollenHistory of penicillin allergyRecurrent pneumoniaPruritic dermatitis 4 Lewis Elyra. [address], [address], [place], [place], [address], [place]. tel:[phone] Referring Provider: [address], [place], [address] . tel:[phone] OFFICE DZMJK-ZNZ-LSU [facility], [address], [place], [place], [address] , [place] tel:[phone] [facility] Chronic Conditions (chief complaint)c hronic conditions (chief complaint) Type 2 diabetes mellitus without complication, without long-term current use of insulinBody mass index [BMI] 45.0-49.9, adult 4 John Edward. [address], [place], [place], [address], [place]. tel:[phone] Referring Provider: [address], [place], [address] . tel:[phone] OFFICE WUFPH-MAR-KRZ ANDED [facility], [address], [place], [place], [address] , [place] [phone] [facility] [place] PCN Allergy (chief complaint) Penicillin allergySeasonal allergic rhinitis due to pollenAllergic rhinitis due to house dust mite 4 Lewis Elyra. [address], [facility] [address], [place], [place], [address], [place]. tel:[phone] Referring Provider: Cheyanne Lopez, [address], [place], [address] . tel:[phone] OFFICE OLXDB-EHL-NUU [facility], [address], [place], [place], [address] , [place] tel:[phone] [facility] [place] Allergies (chief complaint) Recurrent sinus infectionsSeasona l allergic rhinitis due to pollenAllergic rhinitis due to house dust mite 3 Lewis Elyra. [address], [address], [place], [place], [address], [place]. tel:[phone] Referring Provider: [address], [place], [address] . tel:[phone] OFFICE TLEOC-YWL-SBD ANDED [facility], [address], [place], [place], [address] , tel:[phone] [facility] [place] Recurrent Illnesses (chief complaint) Recurrent pneumoniaSeasonal allergies 3 Lewis Elyra. [address], [facility] [address], [place], [place], [address], [place]. tel:[phone] Referring Provider: [address], [place], [address] . tel:[phone] OFFICE XQXNM-YGP-YLB P-MED [facility], [address], [place], [address] , [place] tel: [phone] [facility] [place] Recurrent Infections (chief complaint) Recurrent pneumoniaRecurren t sinus infectionsSeasona l allergies 3 Lewis Elyra. [address], [facility] [address], [place], [place], [address], [place]. tel:[phone] Referring Provider: [address], [place], [address] . tel:[phone] Transitional Care- First 7 Days Of Discharge [facility], [address], [place], [place], [address] , [place] tel: [phone] [facility] Follow-Up (chief complaint) Acute pneumoniaType 2 diabetes mellitus without complication, without long-term current use of insulinHospital discharge follow-up 3 Jhonatan Nagy. [address], [place], [place], [address], [place]. tel:[phone] Referring Provider: [address], [place], [address] . tel:[phone] OFFICE ZTFNG-UPY-ARR GAVIN [facility], [address], [place], [place], [address] , [place] tel: [phone] [facility] Patient encounter (chief complaint) Acute cough 3 John Edward. [address], [place], [place], [address], [place]. tel:[phone] Referring Provider: Cheyanne Lopez, [address], [place], [address] . tel:[phone] [facility], [address], [place], [place], [address] , tel: [phone] [facility] Acute upper respiratory infection, unspecified 2 John Edward. [address], [place], [place], [address], [place]. tel:[phone] Referring Provider: Cheyanne Lopez, [address], [place], [address] . tel:[phone] OFFICE SFENI-ENE-GFY ANDED [facility], [address], [place], [place], [address] , tel: [phone] [facility] acute visit (chief complaint) Acute diarrhea 2 Erik Kongn. [address], [place], [place], [address], [place]. tel:[phone] Referring Provider: Cheyanne Lopez, [address], [place], [address] . tel:[phone] OFFICE VAAAX-YOL-NJA ANDED [facility], [address], [place], [place], [address] , [place] tel: [phone] [facility] Patient encounter (chief complaint) Severe obesity (BMI >= 40)Asymptomatic varicose veinsRashEncounte r for general adult medical examination without abnormal findingsHyperglyc emiaAnemia, unspecified type 2 John Edward. [address], [place], [place], [address], [place]. tel:[phone] Referring Provider: [address], [place], [address] . tel:[phone] [facility], [address], [place], [place], [address] , [place] tel: [phone] [facility] Obesity, Class III, BMI 40-49.9 (morbid obesity)Prediabet es 2 Agapito Taylor. [address], [place], [place], [address], [place]. tel:[phone] Referring Provider: Julianne García, [address], [place], [address] . tel:[phone] [facility], [address], [place], [place], [address] , tel: [phone] [facility] Cough 2 John Edward. [address], [place], [place], [address], . tel:[phone] PREVENTATIVE- NEW: 18-39 [facility], [address], [place], [place], [address] , tel: [phone] [facility] Establish care (chief complaint) AnxietyPrediabete sPneumonia of both lungs due to infectious organism, unspecified part of lungEncounter for general adult medical examination without abnormal findingsDepressio n, unspecifiedObesit y, Class III, BMI 40-49.9 (morbid obesity) 1 Erik Harper [address], [place], [place], [address], [place]. tel:[phone] Referring Provider: Cheyanne Lopez, [address], [place], [address] . tel:[phone] [facility], [address], [place], [place], [address] , tel: [phone] [facility] No Information 1 Erik Kebede. [address], [place], [place], [address], . tel:[phone] Family History Family Member Type Diagnosis Age At Onset Mother Problem Obesity Father Problem Diabetes mellitus Mother Problem Diabetes mellitus Immunizations Vaccine Date Status Comments J&J COVID/Adenovirus Vaccine [id number] viral particles/0.5mL administered Source: Other Prov ider [...] was NEGATIVE to Penicillin G & Penicilloyl- pdqu-P-Uedweo (Pre-Pen). Drug dose challenge to AMOXICILLIN was [...] the reagents Penicillin G, Penicilloic acid, Penicilloyl- qrsu-I-Vxmqog (Pre-Pen) and ampicillin. Marge was initially tested [...] 2+to grasses (Stuart, Orchard, Dahlia, Redtop, Fescue, [place], Sweet Vernal) and Dermatophagoides farinae & Dermatophagoides pteronyssinus and negative to cat, dog, cockroach, guinea pig, mixed feathers, mouse, rabbit, trees (White tomas, Birch, Elm, A[place]ibo, Maple, Cashiers, Red [place], Black [place], [place]quon, [place], Shawnee, Hemlock, Leesville & Graham), weeds (Cocklebur, Dock [place], Sammarinese Plantain, Lambs Quarter, Sanders elder, Ragweed, German Thistle, Sagebrush, Pigweed & Kochia), grasses (Bahia, Bermuda, Agusto, Kentucky Blue, Stuart & Endicott Pollen), molds (Aspergillus fumigatus, Serean, Endicott Smut, Epicoccum, Alternaria, Cladosporium, Aureobasidium, Drechslera, Fusarium, Aspergillus mix, Phoma, Penicillium, Botrytis cinerea, Geotrichum candidum, Rhodotorula, Sarocladium strictum, Stemphylium, solani, Trichophyton) *Percutaneous skin tests administered with Multi-Test PC, Sylvan Source; Intradermal testing administered with 0.01 ml via 28 gauge needle; Testing Extracts from ALK Recurrent Illnesses Marge is a 37 year old female seen for a 4-week follow-up after starting Breztri for a low FEV1.Zandra can tell that her chest seems bread room hand or easier to breath which she did [...] weeks ago (12/21/27), she was admitted to [facility] for 4 days for [...] breath. She was prescribed Symbicort by the Concrete Paving Supervisor at the hospital but she did not fill it because it cost $75 which is too expensive for her. She was prescribed Spiriva but Dr. Lopez WIRE COATER and she developed hives on her torso [...] productive cough, minimal wheezing. 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 Denies fever, body aches, or chills. Does note fatigue. She has an appointment with pulmonology scheduled next month. She was started on metformin 500 mg with evening meal and is tolerating this well. Is to schedule an appt with collaborative physician at [facility], requires referral for this. She has been [...] very self conscious about them3) met w collaborative physician briefly but unable to ffup. interested in bariatric surgery Establish care Pt presents to [facility] with Dr. Judd with OBGYN, last Pap Smear 2019, normal. Has custody of sister in law 2 children age 3 and 6. Very stressed regarding this situation.Has anxiety and depression. 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 She [...] urine for microalbuminstart mounjaro, statin, TOBY inhibitordeclines collaborative physician referral for noweducated re: need for yearly eye examsreassess at next visit Related to Type 2 diabetes mellitus without complication, without long-term current use of insulin - Discussed with Luzma ga that skin testing for PrePen which is risk control field representative of the major determinant in penicillin & Pen G risk control field representative of the minor determinant group was [...] absence of an IgE-mediated drug allergy.- Advised Magre that her drug allergy label to Penicillin [...] No feather or down filled bedding.Consider removing wifw-pn-dlyp carpet from bedroom.Lowest humidity possible indoors is [...] Related to Recurrent pneumonia - Discussed at [facility] with Zandra that unfortunately skin testing [...] Recommend the Flu Vaccine - [facility] Zandra that unfortunately skin testing [...] trial of John Vega pt declined.Meet with collaborative physician. Related to Obesity, Class III, BMI 40-49.9 [...]
[2024-12-07 20:20] VITALS: BP 152/98; PULSE 110; RESP 16; TEMP 36.8; O2SAT 97
--- NOTE | 2024-12-07 20:24 | ECG_ITS ---
Test Date: 2024-12-07 21:20:41 Measurements Intervals [place] Rate: 102 P: 25 TX: 152 QRS: 2 QRSD: 100 T: 24 QT: 375 QTc: 490 Interpretive Statements SINUS TACHYCARDIA POSSIBLE LEFT ATRIAL ENLARGEMENT INCOMPLETE RIGHT BUNDLE BRANCH BLOCK MINIMAL Q WAVES- HIGH LATERAL LEADS CONSIDER ANTERIOR INFARCT, AGE INDETERMINATE BASELINE ARTIFACT- II, III, AVF ABNORMAL ECG No previous ECG available for comparison Electronically Signed On 12-08-2024 06:20:52 CDT by Timmy Soto D.O.
[2024-12-07 21:00] LABS: Hematocrit 42.9 % (37.0-47.0); Hemoglobin 13.7 g/dL (12.0-15.0); Immature Granulocyte Percent A 0.5 % (0-0.5); Lymphocytes Absolute Auto 2.61 K/mm3 (0.9-3.2); Mean Corpuscular HGB Conc 31.9 g/dl (32-36); Mean Corpuscular Hemoglobin 28.1 pg (26-34); Mean Corpuscular Volume 88.1 fl (80-100); Nucleated Red Blood Cells Absolute Auto 0.000 K/mm3 (0.0-0.012); Nucleated Red Blood Cells Perc 0.0 % (0.0-0.2); Platelet Count Result 435 k/mm3 (150-375); Red Blood Count 4.87 M/mm3 (4.2-5.4); White Blood Count 19.1 K/mm3 (4.5-10.0)
[2024-12-07 21:18] LABS: Alanine Aminotransferase 23 U/L (6-35); Albumin Level 4.2 g/dL (3.5-5.1); Alkaline Phosphatase 110 U/L (38-126); Anion Gap 12 mmol/L (4-12); Aspartate Amino Transferase 39 U/L (14-36); Bilirubin,Total 0.6 mg/dL (0.2-1.3); Blood Urea Nitrogen 10 mg/dL (7-17); Calcium 9.3 mg/dL (8.4-10.2); Carbon Dioxide 24 mmol/L (22-30); Chloride 97 mmol/L (98-107); Estimated CRCL calculation 136 ml/min; Estimated Glomerular Filt Rate > 60; Glucose 297 mg/dL (65-110); Lipase 53 U/L (23-300); Potassium 4.2 mmol/L (3.4-5.0); Sodium 133 mmol/L (137-145); Total Protein 7.7 g/dL (6.3-8.2)
--- OUTSIDE RECORDS SUMMARY | 2024-12-07 22:40 | XMS_ITS | Encounter Summary ---
Author Organization [facility] Address [address] [place] [address] Care Team Providers Care Regrinder Name Role Phone Akira Reed DO Primary Care Provider [phone] Reason for Visit * Reason Comments Medication Refill Encounter Details Date Type Department Care Team (Late st Contact Info) Description 05/28/2019 Refill [facility] MATERIAL HANDLING CREW SUPERVISOR - [address] [facility] [address] [place] [address] Estefani Bowers MD [address] [facility] [address] [address] control counseling Social History Tobacco [...] 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
--- OUTSIDE RECORDS SUMMARY | 2024-12-07 22:40 | XMS_ITS | Clinical Summary ---
Author Organization [facility] [address] [place] [address] [place] [address] [place] [address] Care Team Providers Care Hearing Dog Trainer Name Role Phone Unavailable Primary Care Provider [...] migh t be different from the original. 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 on file Not on file Last Filed Vital Signs Vital Sign Reading Time Taken Comments Blood Pressure 122/78 12/23/2020 8:22 AM CDT Pulse 80 06/10/2018 3:50 PM NURSING SURGICAL SERVICES DIRECTOR Temperature 37.1 C (98.8 F) 06/10/2018 3:50 PM NURSING SURGICAL SERVICES DIRECTOR Respiratory Rate 14 06/10/2018 3:50 PM NURSING SURGICAL SERVICES DIRECTOR Oxygen Saturation 98% 06/10/2018 3:50 PM NURSING SURGICAL SERVICES DIRECTOR Inhaled Oxygen Concentration - - Weight 130.2 [...] CDT) CASE REPORT Gynecologic Cytology Report Case: [id number] Authorizing Provider: Marie Gamez, Collected: 10/13/2019 03:24 PM LOCKSTITCH BINDER Ordering Location: [facility] TIN RECOVERY WORKER - [facility] Received: 10/14/2019 07:04 AM reMail First Screen: Nadya Henao Pathologist: Mayuri Cole MD Specimen: LB PAP TP AND HPV PROT, Endocervix 10/30/2019 8:34 AM CDT [facility] Specimen Adequacy Satisfactory for evaluation, endocervical/trans formation zone component present 10/30/2019 8:34 AM CDT [facility] Vp Packaging Interpretation Negative for intraepithelial lesion or malignancy 10/30/2019 8:34 AM CDT [facility] Verified by Mayuri Cole MD on 10/30/2019 at 0834 [facility] Vp Packaging Other Findings Reactive changes associated with inflammation/repai r Moderate inflammation noted 10/30/2019 8:34 AM CDT [facility] Vp Packaging Prev Pap Result Last pap: a few years ago Denies Hx of abnormal pap 10/30/2019 8:34 AM CDT [facility] GynLMP 10/05/2019 10/30/2019 8:34 AM CDT [facility] Vp Packaging Educational Note 10/30/2019 8:34 AM CDT [facility] Comment:The Pap test is a sc [...] information. EMBEDDED IMAGE 10/30/2019 8:34 AM CDT [facility] Genital SWAB OF ENDOCERVIX / Unknown Collection / Unknown 10/13/2019 3:24 PM CDT 10/14/2019 7:04 AM CDT Marie Gamez NP PATHOLOGY/CYTOLOGY ORD ERABLES Final Result Performing Organization Address [facility]/ZIP Co de Phone Number [facility] CLIA# [id number] [address] [place] [address] * (ABNORMAL) HEMOGLOBIN A1C (12/18/2018 10:38 AM CDT) HEMOGLOBIN A1C 6.0(H) <=5.6 % 12/19/2018 12:11 PM CDT [facility] EST. AVG GLUCOSE, A1C 126 mg/dL 12/19/2018 12:11 PM CDT [facility] Blood 12/18/2018 10:3 8 AM CDT 12/19/2018 11:42 AM CDT Narrative [facility] - 12/19/2018 12:11 PM CDT HGB A1C INTERPRETATION NORMAL: <5.7% PRE-DIABETES: 5.7 - 6.4% DIABETES: 6.5% OR GREATER Richi Payne DO CHEMISTRY ORDERABLES Final Res ult Performing Organization Address City/[facility]/ZIP Co de Phone Number [facility] CLIA# [id number] [address] [place] [address] from Last 3 Months or Most Recently Relevant to Health Maintenance Insurance [address] [place] [address] RX MEDIMPACT Member Subscriber Plan / Payer [...] [facility] [address] [place] [address] [place] Advance Directives For more information, please contact: [phone] * Full Code (Latest Code Status on File) Date Activated Date Inactivated Comments 05/01/2018 6:04 AM 05/01/2018 9:01 AM
--- OUTSIDE RECORDS SUMMARY | 2024-12-07 22:40 | XMS_ITS | Clinical Summary ---
Author Organization [facility] Address [address] [facility] [place] [address] Care Team Providers Care Intellectual Property Paralegal Name Role Phone Unavailable Primary Care Provider Unavailabl e Source Comments [facility],non-[facility] Affiliates and Associated Physician Practices is amultiple site organization consisting of ambulatory clinics and hospital sitesin [place], [place], [place] and [place]. This disclosure is being madepursuant to the Care Everywhere program and may not contain all information available regarding this patient. 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
--- OUTSIDE RECORDS SUMMARY | 2024-12-07 22:40 | XMS_ITS | Continuity of Care Document ---
Author Organization [employer] Address [address] [place] [address] Phone Care Team Providers Care Surface Supervisor Name Role Phone Cheyanne Lopez MD Unavailable [...] INITIAL ASSESSMENT AND INTERVENTION, INDIVIDUAL, EACH 15 MO BODY MASS INDEX DOCD SYST BP LT 130 MM HG DIAST BP < 80 MM HG PREVENTATIVE-EST: 18-39 OFFICE ZJLUO-KEE-COWEEASH BODY MASS INDEX DOCD SYST BP LT 130 MM HG DIAST BP < 80 MM HG OFFICE [id number]-WSP-LTVGIDWH BODY MASS INDEX DOCD SYST BP LT 130 MM HG DIAST BP 80-89 MM HG BODY MASS INDEX DOCD SYST BP >= 140 MM HG6 IT DIAST BP 80-89 MM HG Ingestion Challenge Test, Inital 120 Min utes Allergy Testing, Any Combination Of Perc utaneous A OFFICE QOXWL-AKV-VIRZEEAX OFFICE OWWZK-EBJ-WPOVSGJN BODY MASS INDEX DOCD SYST BP LT 130 MM HG DIAST BP 80-89 MM HG ALLERGY SKIN TESTS ALLERGY SKIN TESTS ID HEALTH RISK ASSESSMENT, PATIENT-FOCUSED OFFICE ZMATL-DCY-SSELISSW BODY MASS INDEX DOCD SYST BP LT 130 MM HG DIAST BP 80-89 MM HG SPIROMETRY BEFORE & AFTER BRONCHODIALATO R MOUTHPIECE OFFICE MPQAI-FWI-PURX-MED BODY MASS [facility]DEX [facility] MM HG DIAST [...] SPIROMETRY BEFORE & AFTER BRONCHODIALATO R OFFICE TWRAT-JAO-[id number] BODY MASS INDEX DOCD SYST BP GE 130 - 139MM HG DIAST BP < 80 MM HG Chest Xray, 2 Views COVID, Flu A, Flu B OFFICE VABME-HOY-AKVITRZX SYST BP LT 130 MM HG DIAST BP 80-89 MM HG CBC, INC PLATELETS AND DIFFERENTIAL COMPREHEN METABOLIC PANEL CMP ROUTINE VENIPUNCTURE OFFICE IRABO-QZW-YHGZNHAC SYST BP LT 130 MM HG DIAST BP < 80 MM HG NUTRITIONAL THERAPY; INITIAL ASSESSMENT AND INTERVENTION, INDIVIDUAL, EACH 15 MO Pt inelig neg scrn depres PREVENTATIVE-NEW: 18-39 [...] Diagnoses Date Provider Providers Copied on Encounter [employer], [address], [place], [place], [address] , [place] tel: [phone] [facility] No Information 5 John Edward. [address], [place], [place], [address], [place]. tel:[phone] [employer], [address], [place], [place], [address] , tel: [phone] [facility] No Information 5 John Cheyanne. [address], [place], [place], [address], [place]. tel:[phone] [employer], [address], [place], [place], [address] , [place] tel: [phone] [facility] Type 2 diabetes mellitus with hyperglycemiaSeve re obesity (BMI >= 40) 4 Agapito Taylor. [address], [place], [place], [address], [place]. tel:[phone] Referring Provider: Cheyanne Lopez, [address], [place], [address] . tel:[phone] PREVENTATIVE- EST: 18-39 [employer], [address], [place], [place], [address] , [place] tel: [phone] [facility] preventive exam (chief complaint)C hronic Conditions (chief complaint) Type 2 diabetes mellitus with hyperglycemiaBody mass index [BMI] 45.0-49.9, adultEncounter for general adult medical examination without abnormal findings 4 John Edward. [address], [place], [place], [address], [place]. tel:[phone] Referring Provider: Cheyanne Lopez, [address], [place], [address] . tel:[phone] [employer], [address], [place], [place], [address] , [place] tel:[phone] [facility] No Information 4 John Edward. [address], [place], [place], [address], [place]. tel:[phone] OFFICE CHNYJ-GLV-UAV ANDED [employer], [address], [place], [place], [address] , [place] tel: [phone] [employer] [facility] [place] Allergies (chief complaint) Allergic rhinitis due to house dust miteSeasonal allergic rhinitis due to pollenHistory of penicillin allergyRecurrent pneumoniaPruritic dermatitis 4 Lewis Elyra. [address], [address], [place], [place], [address], [place]. tel:[phone] Referring Provider: [address], [place], [address] . tel:[phone] OFFICE GFMAA-XWM-DTZ [facility], [address], [place], [place], [address] , [place] tel:[phone] [facility] Chronic Conditions (chief complaint)c hronic conditions (chief complaint) Type 2 diabetes mellitus without complication, without long-term current use of insulinBody mass index [BMI] 45.0-49.9, adult 4 John Edward. [address], [place], [place], [address], [place]. tel:[phone] Referring Provider: [address], [place], [address] . tel:[phone] OFFICE IXZSI-ZBR-OWY ANDED [facility], [address], [place], [place], [address] , [place] [phone] [facility] [place] PCN Allergy (chief complaint) Penicillin allergySeasonal allergic rhinitis due to pollenAllergic rhinitis due to house dust mite 4 Lewis Elyra. [address], [facility] [address], [place], [place], [address], [place]. tel:[phone] Referring Provider: Cheyanne Lopez, [address], [place], [address] . tel:[phone] OFFICE QVAVH-BPA-UWH [facility], [address], [place], [place], [address] , [place] tel:[phone] [facility] Asthma Allergy [place] Allergies (chief complaint) Recurrent sinus infectionsSeasona l allergic rhinitis due to pollenAllergic rhinitis due to house dust mite 3 Lewis Elyra. [address], [address], [place], [place], [address], [place]. tel:[phone] Referring Provider: [address], [place], [address] . tel:[phone] OFFICE VVCOJ-JGW-EJM ANDED [facility], [address], [place], [place], [address] , tel:[phone] [facility] [place] Recurrent Illnesses (chief complaint) Recurrent pneumoniaSeasonal allergies 3 Lewis Elyra. [address], [facility] [address], [place], [place], [address], [place]. tel:[phone] Referring Provider: [address], [place], [address] . tel:[phone] OFFICE SEBPV-ZIG-ELO P-MED [facility], [address], [place], [place], [address] , [place] tel: [phone] [facility] [place] Recurrent Infections (chief complaint) Recurrent pneumoniaRecurren t sinus infectionsSeasona l allergies 3 Lewis Elyra. [address], [facility] [address], [place], [place], [address], [place]. tel:[phone] Referring Provider: [address], [place], [address] . tel:[phone] Transitional Care- First 7 Days Of Discharge [facility], [address], [place], [place], [address] , [place] tel: [phone] [facility] Follow-Up (chief complaint) Acute pneumoniaType 2 diabetes mellitus without complication, without long-term current use of insulinHospital discharge follow-up 3 Jhonatan Nagy. [address], [place], [place], [address], [place]. tel:[phone] Referring Provider: [address], [place], [address] . tel:[phone] OFFICE PLKXO-HVR-OYF GAVIN [facility], [address], [place], [place], [address] , [place] tel: [phone] [facility] Patient encounter (chief complaint) Acute cough 3 John Edward. [address], [place], [place], [address], [place]. tel:[phone] Referring Provider: Cheyanne Lopez, [address], [place], [address] . tel:[phone] [facility], [address], [place], [place], [address] , tel: [phone] [facility] Acute upper respiratory infection, unspecified 2 John Edward. [address], [place], [place], [address], [place]. tel:[phone] Referring Provider: Cheyanne Lopez, [address], [place], [address] . tel:[phone] OFFICE FLJMD-IMC-GQK ANDED [facility], [address], [place], [place], [address] , tel: [phone] [facility] acute visit (chief complaint) Acute diarrhea 2 Erik Kongn. [address], [place], [place], [address], [place]. tel:[phone] Referring Provider: Cheyanne Lopez, [address], [place], [address] . tel:[phone] OFFICE ZJPJV-FDE-HPZ ANDED [facility], [address], [place], [place], [address] , [place] tel: [phone] [facility] Patient encounter (chief complaint) Severe obesity (BMI >= 40)Asymptomatic varicose veinsRashEncounte r for general adult medical examination without abnormal findingsHyperglyc emiaAnemia, unspecified type 2 John Edward. [address], [place], [place], [address], [place]. tel:[phone] Referring Provider: [address], [place], [address] . tel:[phone] [facility], [address], [place], [place], [address] , [place] tel: [phone] [facility] Obesity, Class III, BMI 40-49.9 (morbid obesity)Prediabet es 2 Agapito Taylor. [address], [place], [place], [address], [place]. tel:[phone] Referring Provider: Julianne García, [address], [place], [address] . tel:[phone] [facility], [address], [place], [place], [address] , tel: [phone] [facility] Cough 2 John Edward. [address], [place], [place], [address], . tel:[phone] PREVENTATIVE- NEW: 18-39 [employer], [address], [place], [place], [address] , tel: [phone] [facility] Establish care (chief complaint) AnxietyPrediabete sPneumonia of both lungs due to infectious organism, unspecified part of lungEncounter for general adult medical examination without abnormal findingsDepressio n, unspecifiedObesit y, Class III, BMI 40-49.9 (morbid obesity) 1 Erik Harper [address], [place], [place], [address], [place]. tel:[phone] Referring Provider: Cheyanne Lopez, [address], [place], [address] . tel:[phone] [employer], [address], [place], [place], [address] , tel: [phone] [facility] No Information 1 Erik Kebede. [address], [place], [place], [address], . tel:[phone] Family History Family Member Type Diagnosis Age At Onset Mother Problem Obesity Father Problem Diabetes mellitus Mother Problem Diabetes mellitus Immunizations Vaccine Date Status Comments J&J COVID/Adenovirus Vaccine [id number] viral particles/0.5mL administered Source: Other Prov ider Payers Payer name Insurance type Covered democrat ID Authoriza tijulia(s) No Information Social History [...] was NEGATIVE to Penicillin G & Penicilloyl- hhar-U-Fnylor (Pre-Pen). Drug dose challenge to AMOXICILLIN was [...] the reagents Penicillin G, Penicilloic acid, Penicilloyl- rbsi-Y-Udmjiw (Pre-Pen) and ampicillin. Marge was initially tested [...] testing to environmental allergens was 2+to grasses (Staurt, Orchard, Dahlia, Redtop, Fescue, [place], Sweet Vernal) and Dermatophagoides farinae & Dermatophagoides pteronyssinus and negative to cat, dog, cockroach, guinea pig, mixed feathers, mouse, rabbit, trees (White tomas, Birch, Elm, Dolores, Maple, [place], Red [place], [place], [place], [place], [place], [place], [place] & [place]), weeds (Cocklebur, [place], Russian Plantain, Lambs Quarter, Sanders elder, Ragweed, Swiss Thistle, Sagebrush, Pigweed & Kochia), grasses (Bahia, Bermuda, Agusto, [place] Blue, [place] Pollen), molds (Aspergillus fumigatus, Serena, [place] Smut, Epicoccum, Alternaria, Cladosporium, Aureobasidium, Drechslera, Fusarium, Aspergillus mix, Phoma, Penicillium, Botrytis cinerea, Geotrichum candidum, Rhodotorula, Sarocladium strictum, Stemphylium, solani, Trichophyton) *Percutaneous skin tests administered with Multi-Test PC, Chaologix; Intradermal testing administered with 0.01 ml via 28 gauge needle; Testing Extracts from [facility] Recurrent Illnesses Marge is a 37 year old female seen for a 4-week follow-up after starting Breztri for a low FEV1.Zandra can tell that her chest seems profiler hand or easier to breath which she [...] weeks ago (12/21/27), she was admitted to [facility] for 4 days for bilateral pneumonia requiring [...] breath. She was prescribed Symbicort by the Materials Management Clerk at the hospital but she did not fill it because it cost $75 which is too expensive for her. She was prescribed Spiriva but Dr. Lopez ARCHITECT INTERN and she developed hives on her torso [...] productive cough, minimal wheezing. Was unable to brick picker Symbicort due to cost, is using albuterol occasionally. Denies fever, body aches, or chills. Does note fatigue. She has an appointment with pulmonology scheduled next month. She was started on metformin 500 mg with evening meal and is tolerating this well. Is to schedule an appt with semiconductor packages sealer at [place], requires referral for this. She has been [...] very self conscious about them3) met w semiconductor packages sealer briefly but unable to ffup. interested in bariatric surgery Establish care [facility] Dr. Judd with OBGYN, last Pap Smear 2019, normal. Has custody of sister in law 2 children age 3 and 6. Very stressed regarding this situation.Has anxiety and depression. On celexa prescribed by her PULLER MACHINE. 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 She is feeling a little better.Most depressed about her weight. Has little time for exercise. Also has pre dm, last A1c 2019 6.0. Denies polyuria, polydipsia, polyphagia.Diagnosed with bilateral pneumonia at [facility] urgent care earlier this week.Covid [...] urine for microalbuminstart mounjaro, statin, TOBY inhibitordeclines semiconductor packages sealer referral for noweducated re: need for yearly eye examsreassess at next visit Related to Type 2 diabetes mellitus without complication, without long-term current use of insulin - Discussed with Luzma ga that skin testing for PrePen which is claims service representative of the major determinant in penicillin & Pen G claims service representative of the minor determinant group was [...] No feather or down filled bedding.Consider removing zuoc-qn-ozht carpet from bedroom.Lowest humidity possible indoors is [...] Related to Recurrent pneumonia - Discussed at [facility] with Zandra that unfortunately skin testing [...] Recommend the Flu Vaccine - [facility] that unfortunately skin [...] trial of John Vega pt declined.Meet with semiconductor packages sealer. Related to Obesity, Class III, BMI 40-49.9 [...]
--- NOTE | 2024-12-07 23:14 | PC.NURSE ---
Pt presents to ED c/o n/v, non-bloody diarrhea, onset 3pm. Pt c/o 2/10 sharp abdominal pain, non radiating.
--- NOTE | 2024-12-07 23:15 | PC.NURSE ---
Report to Caryn ZAMORA
[2024-12-07 23:16] VITALS: BP 151/72; PULSE 103; RESP 13; TEMP 36.8; O2SAT 97
[2024-12-07 23:21] LABS: BEDSIDEPREGUCG Negative (Negative)
[2024-12-07 23:30] LABS: Add Urine Microscopic? YES; Appearance Urine Cloudy (Clear); Glucose Urine UA 1+ mg/dL (Negative); Leukocyte Esterase Ur 1+ LEU/UL (Negative); Nitrate Urine Negative (Negative); Specific Grav Ur 1.039 (1.001-1.035)
[2024-12-07 23:32] VITALS: BP 147/81; PULSE 106; RESP 16; O2SAT 97
[2024-12-08 00:01] VITALS: BP 146/73; PULSE 97; RESP 16; O2SAT 96
[2024-12-08 00:32] VITALS: BP 142/81; PULSE 100; RESP 14; O2SAT 98
[2024-12-08 01:02] VITALS: BP 143/79; PULSE 103; RESP 20; O2SAT 97
--- NOTE | 2024-12-08 01:32 | ED.ABDPAIN ---
HPI - Abdominal Pain General Chief Complaint: Abdominal Pain Stated Complaint: abdominal pain, vomiting Time Seen by Provider: 12/07/24 22:32 History of Present Illness HPI narrative: 39-year-old female presenting to the emergency department with acute onset nausea vomiting diarrhea with loose watery stools. Started this morning at 3 in the morning. She has been having some intermittent cramping abdominal the sensations in the epigastric region. Loose watery stools and diarrhea with nausea and vomiting. Denies any fevers. Thinks she may have got some food poisoning. No around with similar symptoms. History of cholecystectomy but no other abdominal surgeries. Otherwise in her normal state of health any recent medication changes or medication allergies to her knowledge. No traumatic injuries. Denies any urinary symptoms. Related Data Home Medications ?Medication ?Instructions ?Recorded ?Confirmed ?Last Taken ?Type albuterol sulfate 90 mcg/actuation 2 - 4 puff inhalation Q4-6H PRN 12/20/22 06/26/23 Unknown History aerosol inhaler Shortness Of Breath Or Wheezing citalopram 40 mg tablet 40 mg PO HS 12/20/22 06/26/23 Unknown History atorvastatin 10 mg tablet 10 mg PO DAILY 06/26/23 06/26/23 Unknown History etonogestrel 0.12 mg-ethinyl See Rx Instructions .Route .COMPLEX 06/26/23 06/26/23 Unknown History estradiol 0.015 mg/24 hr vaginal ring (NuvaRing) lisinopril 5 mg tablet mg 10/22/24 Unknown History Allergies Allergy/AdvReac Type Severity Reaction Status Date / Time nickel Allergy Mild Rash Verified 12/07/24 22:18 tiotropium (From Spiriva Allergy Mild Hives Verified 12/07/24 22:18 with HandiHaler) poppyseed oil AdvReac Intermediate Nausea and Verified 12/07/24 22:18 Vomiting Review of Systems Review of Systems: As reviewed above [facility]PI [facility] Past Medical History Medical History Asthma Type 2 diabetes mellitus Depression with anxiety Surgical History Surgical History History of cholecystectomy (01/2017) History of dilation and curettage (05/2018) Family History Family History Other Family history non-contributory Social History Social History Social History: Surrogate medical decision maker: Ramy García, spouse. Code status: Full code. Smoking status: Never smoker Second hand tobacco smoke exposure: No Alcohol intake: never Substance use: never Lack of Transportation: No Lack of Food: Sometimes True Current Housing: I Have Housing Concerned About Future Housing: No Difficulty Paying Gas/Electric Bills: YES Difficulty Paying for Meds: No Currently Unemployed: No Education: Associate Degree Difficulty w/ Childcare or Family Care: No Additional living arrangements comments: Lives with spouse and 2 young children ages 4 and 7. Additional occupation/education comments: Works at a [employer]. Spiritual care concerns: No Exam Narrative: GENERAL: Morbidly obese but not any acute distress, awake alert oriented. HEAD: [Normocephalic, atraumatic.] EYES: [PERRLA and EOMI.] ENT: Nares clear, no rhinorrhea or epistaxis. Mucous membranes moist. NECK: Supple. CHEST: [Clear to auscultation. No respiratory distress.] HEART: [Regular rate and rhythm]. No murmur heard. [Normal peripheral pulses.] ABDOMEN: [Soft, nondistended], minimally tender in the epigastric region, [No rigidity or guarding] EXTREMITIES: Normal range of motion. [No edema.] SKIN: Warm, dry, no rash. NEURO: [No focal deficits]. Alert and oriented [x3.] PSYCH: [Normal mood and affect.] Course Vital Signs Vital signs: Vital Signs Temperature 36.8 C 12/07/24 20:20 Pulse Rate 110 H 12/07/24 20:20 Respiratory Rate 16 12/07/24 20:20 Blood Pressure 152/98 H 12/07/24 20:20 Pulse Oximetry 97 12/07/24 20:20 Oxygen Delivery Room Air 12/07/24 20:20 Temperature 36.8 C 12/07/24 23:16 Pulse Rate 103 H 12/07/24 23:16 Respiratory Rate 13 12/07/24 23:16 Blood Pressure 151/72 H 12/07/24 23:16 Pulse Oximetry 97 12/07/24 23:16 Oxygen Delivery Room Air 12/07/24 20:20 MDM - Abdominal Pain MDM Narrative Medical decision making narrative: 39-year-old female presenting to the emergency department with acute onset nausea vomiting diarrhea with loose watery stools. Started this morning at 3 in the morning. She has been having some intermittent cramping abdominal the sensations in the epigastric region. Loose watery stools and diarrhea with nausea and vomiting. Denies any fevers. Thinks she may have got some food poisoning. No around with similar symptoms. History of cholecystectomy but no other abdominal surgeries. Otherwise in her normal state of health any recent medication changes or medication allergies to her knowledge. No traumatic injuries. Denies any urinary symptoms. Patient is mildly tachycardic but otherwise hemodynamically stable without any fever. No significant blood pressure concerns. Differential includes gastritis, gastroenteritis, food poisoning a bacterial gastroenteritis, diverticulitis, appendicitis. Laboratory studies and a CT with contrast was obtained. CT shows enterocolitis and diarrheal illness. Mild splenomegaly, normal appearing appendix. Prior cholecystectomy. Some fatty liver with hepatomegaly and nonspecific hypodense lesions. Several these are incidental findings and patient symptomatology likely secondary to enterocolitis possible infectious pathology [place] [id number]. Patient's laboratory studies otherwise showed no significant derangements such as acute kidney injury, significant dehydration or electrolyte abnormalities there are deranged. She does have some hyperglycemia but has previously uncontrolled diabetes as well. Likely reactive rather than causative. Urinalysis has moderate squamous cells and contaminated sample, some white blood cells, negative test. Patient was started on ciprofloxacin and Flagyl be sent home with oral antibiotic therapy. She was given return precautions and instructions for follow-up with GI. Patient comfortable with plan safe for discharge. Medical Records Attestation: I reviewed the patient's medical records. Lab Data Attestation: I reviewed the patient's lab results. 12/07/24 20:52 12/07/24 20:52 Labs: Lab Results 12/07/24 12/07/24 12/07/24 Range/Units 20:52 23:18 23:19 WBC 19.1 H (4.5-10.0) K/mm3 RBC 4.87 (4.2-5.4) M/mm3 Hgb 13.7 (12.0-15.0) g/dL Hct 42.9 (37.0-47.0) % MCV 88.1 (80-100) fl MCH 28.1 (26-34) pg MCHC 31.9 L (32-36) g/dl RDW 13.6 (11.5-14.5) % Plt Count 435 H D (150-375) k/mm3 MPV 10.0 (7.4-10.4) fl Immature Gran % (Auto) 0.5 (0-0.5) % Neut % (Auto) 83.2 H (45.5-73.1) % Lymph % (Auto) 13.6 L (18.3-44.2) % [place] % (Auto) 2.2 L (2.6-8.5) % Eos % (Auto) 0.1 (0-4.4) % Baso % (Auto) 0.4 (0.2-1.2) % Lymph # (Auto) 2.61 (0.9-3.2) K/mm3 [place] # (Auto) 0.4 (0.1-0.6) K/mm3 Eos # (Auto) 0.0 (0-0.3) K/mm3 Baso # (Auto) 0.1 (0.0-0.1) K/mm3 Abs Immat Gran (auto) 0.10 H (0.00-0.031) K/mm3 Absolute Neuts (auto) 15.9 H (1.3-6.7) K/mm3 Absolute Nucleated RBC 0.000 (0.0-0.012) K/mm3 Nucleated RBC % 0.0 (0.0-0.2) % Sodium 133 L (137-145) mmol/L Potassium 4.2 (3.4-5.0) mmol/L Chloride 97 L (98-107) mmol/L Carbon Dioxide 24 (22-30) mmol/L Anion Gap 12 (4-12) mmol/L BUN 10 (7-17) mg/dL Creatinine 0.62 L (0.7-1.0) mg/dL Estim Creat Clear Calc 136 ml/min Estimated GFR > 60 (59 - ) Glucose 297 H (65-110) mg/dL Calcium 9.3 (8.4-10.2) mg/dL Total Bilirubin 0.6 (0.2-1.3) mg/dL AST 39 H (14-36) U/L ALT 23 (6-35) U/L Alkaline Phosphatase 110 (38-126) U/L Total Protein 7.7 (6.3-8.2) g/dL Albumin 4.2 (3.5-5.1) g/dL Lipase 53 (23-300) U/L Urine Color Dark yellow (Yellow) Urine Appearance Cloudy H (Clear) Urine pH 5.5 (5.0-9.0) Ur Specific [place] 1.039 H (1.001-1.035) Urine Protein 2+ H (Negative) mg/dL Urine Glucose (UA) 1+ H (Negative) mg/dL Urine Ketones 3+ H (Negative) mg/dL Ur Blood (Man) 3+ H (Negative) Urine Nitrate Negative (Negative) Urine Bilirubin 2+ H (Negative) Urine Urobilinogen 1.0 (<2.0) mg/dL Leukocyte Esterase Rfl 1+ H (Negative) JAROD/UL Urine RBC >100 H (0-2) /hpf Urine WBC 21-50 H (0-3) /hpf Ur Squamous Epith Cells Moderate (Few) /hpf Urine Bacteria Rare /hpf Urine Casts 3-5 POC Urine HCG, Qual Negative (Negative) Imaging Data Attestation: I personally reviewed and interpreted this imaging study as follows: My impression: Impressions Abdomen/Pelvis CT 12/08/24 00:09 IMPRESSION: Edematous mural thickening within the distal small bowel, extending into the colon which suggests a diffuse enteritis with significant inflammatory change within the root of the mesentery, the bilateral paracolic gutters and adjacent to the inferior most margin of the right lobe of the liver. Hepatosplenomegaly with a 2 cm (likely) hemangioma within segment 5 of the liver, for which contrast enhanced MRI versus ultrasound may be performed for confirmation. Radiologist's impression: ITS Impressions Abdomen/Pelvis CT 12/08/24 00:09 IMPRESSION: Edematous mural thickening within the distal small bowel, extending into the colon which suggests a diffuse enteritis with significant inflammatory change within the root of the mesentery, the bilateral paracolic gutters and adjacent to the inferior most margin of the right lobe of the liver. Hepatosplenomegaly with a 2 cm (likely) hemangioma within segment 5 of the liver, for which contrast enhanced MRI versus ultrasound may be performed for confirmation. Discharge Plan Discharge Clinical Impression: Enteritis, Nausea vomiting and diarrhea Patient Disposition: Home Condition: Stable Instructions: Antibiotic Form, Enteritis (ED) Additional Instructions: CT scan findings shows enteritis which is likely infectious in nature similar to food poisoning. We will treat this with oral antibiotics for next several days as well as some symptom controlling medications. Follow-up with regular doctor and return with any emergent concerns. Will refer you to GI if this is recurrent or persistent issue. There is a likely hemangioma also in your liver which needs nonemergent outpatient ultrasound or MRI for confirmation. Patient Language: Maltese Prescriptions: New ciprofloxacin HCl [Cipro] 500 mg tablet 500 mg PO Q12H 7 Days Qty: 14 0RF metronidazole 500 mg tablet 500 mg PO Q8H 7 Days Qty: 21 0RF ondansetron 4 mg tablet,disintegrating 4 mg PO Q8H PRN (Reason: nausea and vomiting) Qty: 20 0RF No Action atorvastatin 10 mg tablet 10 mg PO DAILY etonogestrel-ethinyl estradiol [NuvaRing] 0.12-0.015 mg/24 hr ring See Rx Instructions .ROUTE .COMPLEX Rx Instructions: vag ring vaginally lisinopril 5 mg tablet citalopram 40 mg tablet 40 mg PO HS albuterol sulfate 90 mcg/actuation HFA aerosol inhaler 2 - 4 puff INHALATION Q4-6H PRN (Reason: Shortness Of Breath Or Wheezing) Follow-up/Referrals: Ailyn Myers ENGRAVING OPERATOR [Primary Care Provider] - Jassi Graves MD [Physician] - 1 Week (Enterocolitis, Hemangioma)
[2024-12-08] MEDS: CIPROFLOXACIN 400 MG/D5W 200ML 200 ML 200 MG IVPB (01:40)
[2024-12-08 01:47] VITALS: BP 148/86; PULSE 100; RESP 17; O2SAT 98
[2024-12-08 02:00] VITALS: PULSE 96; RESP 16; O2SAT 98
[2024-12-08 02:18] VITALS: PULSE 98; RESP 15; O2SAT 98
--- NOTE | 2024-12-08 02:30 | PC.NURSE ---
pt ambulatory with even and steady gait
== END 2024-12-08 02:51 | disposition home or self-care (01) ==
PROVIDERS: Emergency Medicine; Emergency Provider Student in an Organized Health Care Education/Training Program
DX: K52.9 Noninfective gastroenteritis and colitis, unspecified (principal); E11.9 Type 2 diabetes mellitus without complications; J45.909 Unspecified asthma, uncomplicated; F41.8 Other specified anxiety disorders; Z90.49 Acquired absence of other specified parts of digestive tract; R16.2 Hepatomegaly with splenomegaly, not elsewhere classified; R94.31 Abnormal electrocardiogram [ECG] [EKG]; R00.0 Tachycardia, unspecified
CPT/HCPCS: 36415; 74177; 80053; 81001; 81025; 83690; 85025; 93005; 96365; 99284; A9270; J0744; Q9967

== ENCOUNTER 2025-01-16 14:03 | Emergency (ER) | payer OTHER, SELFPAY ==
--- OUTSIDE RECORDS SUMMARY | 2025-01-04 11:25 | XMS_ITS | Continuity of Care Document ---
Author Organization [facility] Address [address] [place] [address] Phone Care Team Providers [employer] Name Role Phone Joshua KITCHEN, Wendy Unavailable Unavailable Allergies, Adverse Reactions, Alerts Substance [...] INITIAL ASSESSMENT AND INTERVENTION, INDIVIDUAL, EACH 15 [place] BODY MASS INDEX DOCD SYST BP LT 130 MM HG DIAST BP < 80 MM HG PREVENTATIVE-EST: 18-39 OFFICE [id number] BODY MASS INDEX DOCD SYST BP LT 130 MM HG DIAST BP < 80 MM HG OFFICE [id number] BODY MASS INDEX DOCD SYST BP LT 130 MM HG DIAST BP 80-89 MM HG BODY MASS INDEX DOCD SYST BP >= 140 MM HG6 IT DIAST BP 80-89 MM HG Ingestion Challenge Test, Inital 120 Min utes Allergy Testing, Any Combination Of Perc utaneous A OFFICE [id number] OFFICE [id number] BODY MASS INDEX DOCD SYST BP LT 130 MM HG DIAST BP 80-89 MM HG ALLERGY SKIN TESTS ALLERGY SKIN TESTS ID HEALTH RISK ASSESSMENT, PATIENT-FOCUSED OFFICE [id number] BODY MASS INDEX DOCD SYST BP LT 130 MM HG DIAST BP 80-89 MM HG SPIROMETRY BEFORE & AFTER BRONCHODIALATO R MOUTHPIECE OFFICE TOOEX-DKH-ZNCN-MED BODY MASS [facility]DEX [facility] 130 MM HG DIAST BP < 80 MM HG MOUTHPIECE SPIROMETRY BEFORE & AFTER BRONCHODIALATO R Transitional Care- First 7 Days Of Disch arge BODY MASS INDEX DOCD SYST BP LT 130 MM HG DIAST BP 80-89 MM HG ADM SET WITH SMALL VOL NON FILTERED PNEU MATIC NEBULIZER DISPOSABLE ALBUTEROL 2.5 MG AND IPRATROPIUM BROMIDE .5 MG Aug-16-2023 INHALATION TREATMENT/THERAPY SPIROMETRY BEFORE & AFTER BRONCHODIALATO R OFFICE HOILD-UJY-CQLIACKX BODY MASS INDEX DOCD SYST BP GE 130 - 139MM HG DIAST BP < 80 MM HG Chest Xray, 2 Views COVID, Flu A, Flu B OFFICE [id number]-[id number] SYST BP LT 130 MM HG DIAST BP 80-89 MM HG CBC, INC PLATELETS AND DIFFERENTIAL COMPREHEN METABOLIC PANEL CMP ROUTINE VENIPUNCTURE OFFICE [id number] SYST BP LT 130 MM HG DIAST BP < 80 MM HG NUTRITIONAL THERAPY; INITIAL ASSESSMENT AND INTERVENTION, INDIVIDUAL, EACH 15 [place] Pt inelig neg scrn depres PREVENTATIVE-NEW: 18-39 [...] Diagnoses Date Provider Providers Copied on Encounter [facility], [address], [place], [place], [address] , [place] tel:[phone] [facility] [place] No Information 5 Joshua Nguyen. [address], [address], [place], [place], [address], [place]. tel:[phone] [facility], [address], [place], [place], [address] , [place] tel: [phone] [facility] No Information 5 John Cheyanne. [address], [place], [place], [address], [place]. tel:[phone] [facility], [address], [place], [place], [address] , [place] tel: [phone] [facility] Type 2 diabetes mellitus with hyperglycemiaSeve re obesity (BMI >= 40) 4 Agapito Taylor. [address], [facility] [address], [place], [place], [address], [place]. tel:[phone] Referring Provider: Cheyanne Lopez, [address], [place], [address] . tel:[phone] PREVENTATIVE- EST: 18-39 [facility], [address], [place], [place], [address] , [place] tel: [phone] [facility] preventive exam (chief complaint)C hronic Conditions (chief complaint) Type 2 diabetes mellitus with hyperglycemiaBody mass index [BMI] 45.0-49.9, adultEncounter for general adult medical examination without abnormal findings 4 John Edward. [address], [place], [place], [address], [place]. tel:[phone] Referring Provider: Cheyanne Lopez, [address], [place], [address] . tel:[phone] [facility], [address], [place], [place], [address] , [place] tel:[phone] [facility] No Information 4 John Edward. [address], [place], [place], [address], [place]. tel:[phone] OFFICE IMZVX-LBZ-WGY ANDED [facility], [address], [place], [place], [address] , [place] tel: [phone] [facility] [place] Allergies (chief complaint) Allergic rhinitis due to house dust miteSeasonal allergic rhinitis due to pollenHistory of penicillin allergyRecurrent pneumoniaPruritic dermatitis Jun- 4 Lewis Elyra. [address], [address], [place], [place], [address], [place]. tel:[phone] Referring Provider: [address], [place], [address] . tel:[phone] OFFICE MLPQG-QVH-IPT [facility], [address], [place], [place], [address] , [place] tel:[phone] [facility] Chronic Conditions (chief complaint)c hronic conditions (chief complaint) Type 2 diabetes mellitus without complication, without long-term current use of insulinBody mass index [BMI] 45.0-49.9, adult Fe- 4 John Edward. [address], [place], [place], [address], [place]. tel:[phone] Referring Provider: [address], [place], [address] . tel:[phone] OFFICE RIPNK-OGP-TWM ANDED [facility], [address], [place], [place], [address] , [place] tel:[phone] [facility] [place] PCN Allergy (chief complaint) Penicillin allergySeasonal allergic rhinitis due to pollenAllergic rhinitis due to house dust mite 4 Lewisdivina Nguyen. [address], [address], [place], [place], [address], [place]. tel:[phone] Referring Provider: [address], [place], [address] . tel:[phone] OFFICE XXQIE-IUR-XAJ [facility], [address], [place], [place], [address] , [place] tel:[phone] [facility] [place] Allergies (chief complaint) Recurrent sinus infectionsSeasona l allergic rhinitis due to pollenAllergic rhinitis due to house dust mite 3 Lewis Elyra. [address], [address], [address], . tel:[phone] Referring Provider: [address], [place], [address] . tel:[phone] OFFICE DGVOF-HOT-LAQ ANDED [facility], [address], [place], [place], [address] , [place] tel:[phone] [facility] [place] Recurrent Illnesses (chief complaint) Recurrent pneumoniaSeasonal allergies 3 Lewis Elyra. [address], [address], [address], [place]. tel:[phone] Referring Provider: [address], [place], [address] . tel:[phone] OFFICE NUGAR-FTD-YUA P-MED [facility], [address], [place], [place], [address] , [place] tel:[phone] [facility] [place] Recurrent Infections (chief complaint) Recurrent pneumoniaRecurren t sinus infectionsSeasona l allergies 3 Lewis Elyra. [address] , [address], [address], [place]. tel:[phone] Referring Provider: [address], [place], [address] . tel:[phone] Transitional Care- First 7 Days Of Discharge [facility], [address], [place], [place], [address] , [place] tel:[phone] [facility] Follow-Up (chief complaint) Acute pneumoniaType 2 diabetes mellitus without complication, without long-term current use of insulinHospital discharge follow-up 3 Jhonatan Nagy. [address] [facility], [facility] [address], [place], [address], [place]. tel:[phone] Referring Provider: [address], [place], [address] . tel:[phone] OFFICE WHOQX-KOT-RDS GAVIN [facility], [address], [place], [place], [address] , tel: [phone] [facility] IM Patient encounter (chief complaint) Acute cough 3 John Edward. [address], [place], [place], [address], . tel:[phone] Referring Provider: Cheyanne Lopez, [address], [place], [address] . tel:[phone] [facility], [address], [place], [place], [address] , tel: [phone] [facility] Acute upper respiratory infection, unspecified 2 John Edward. [address], [place], [place], [address], . tel:[phone] Referring Provider: Cheyanne Lopez, [address], [place], [address] . tel:[phone] OFFICE AQHEV-XQI-GBK ANDED [facility], [address], [place], [place], [address] , tel: [phone] [facility] IM acute visit (chief complaint) Acute diarrhea 2 Erik Kongn. [address], [place], [place], [address], . tel:[phone] Referring Provider: Cheyanne Lopez, [address], [place], [address] . tel:[phone] OFFICE HGHPP-HKB-WPQ ANDED [facility], [address], [place], [place], [address] , tel: [phone] [facility] IM Patient encounter (chief complaint) Severe obesity (BMI >= 40)Asymptomatic varicose veinsRashEncounte r for general adult medical examination without abnormal findingsHyperglyc emiaAnemia, unspecified type 2 John Edward. [address], [place], [place], [address], . tel:[phone] Referring Provider: Cheyanne Lopez, [address], [place], [address] . tel:[phone] [facility], [address], [place], [place], [address] , [place] tel: [phone] [facility] Obesity, Class III, BMI 40-49.9 (morbid obesity)Prediabet es 2 Agapito Taylor. [address], [address], [place], [place], [address], [place]. tel:[phone] Referring Provider: Julianne García, [address], [place], [address] . tel:[phone] [facility], [address], [place], [place], [address] , [place] tel: [phone] [facility] Cough 2 John Edward. [address], [place], [place], [address], [place]. tel:[phone] PREVENTATIVE- NEW: 18-39 [facility], [address], [place], [place], [address] , tel: [phone] [facility] Establish care (chief complaint) AnxietyPrediabete sPneumonia of both lungs due to infectious organism, unspecified part of lungEncounter for general adult medical examination without abnormal findingsDepressio n, unspecifiedObesit y, Class III, BMI 40-49.9 (morbid obesity) 1 Erik Harper [address], [place], [place], [address], [place]. tel:[phone] Referring Provider: Cheyanne Lopez, [address], [place], [address] . tel:[phone] [facility], [address], [place], [place], [address] , [place] tel: [phone] [facility] No Information 1 Erik Kebede. [address], [place], [place], [address], [place]. tel:[phone] Family History Family Member Type Diagnosis Age At Onset Mother Problem Obesity Father Problem Diabetes mellitus Mother Problem Diabetes mellitus Immunizations Vaccine Date Status Comments J&J COVID/Adenovirus Vaccine [id number] viral particles/0.5mL administered Source: Other Viver[employer] ider Payers Payer name Insurance type Covered constitution party ID Anil stapleton(s) No Information Social History Type Description Quantity [...] was NEGATIVE to Penicillin G & Penicilloyl- zbdj-X-Aprdlr (Pre-Pen). Drug dose challenge to AMOXICILLIN was [...] the reagents Penicillin G, Penicilloic acid, Penicilloyl- ghyz-T-Lrzcop (Pre-Pen) and ampicillin. Marge was initially tested [...] 2+to grasses (Stuart, Orchard, Dahlia, Redtop, Fescue, [place], Sweet [place]al) and Dermatophagoides farinae & Dermatophagoides pteronyssinus and negative to cat, dog, cockroach, guinea pig, mixed feathers, mouse, rabbit, trees (White tomas, Birch, Elm, Branch, Maple, [place], Red [place], [place], [place], [place], [place], [place], [place] & Magnolia), weeds (Cocklebur, Dock [place], Swedish Plantain, Lambs Quarter, Sanders elder, Ragweed, Beninese Thistle, Sagebrush, Pigweed & Kochia), grasses (B[place], Bermuda, Agusto, [place] Blue, Stuart & [place] Pollen), molds (Aspergillus fumigatus, Serena, [place] Smut, Epicoccum, Alternaria, Cladosporium, Aureobasidium, Drechslera, Fusarium, Aspergillus mix, Phoma, Penicillium, Botrytis cinerea, Geotrichum candidum, Rhodotorula, Sarocladium strictum, Stemphylium, solani, Trichophyton) *Percutaneous skin tests administered with Multi-Test PC, [employer]; Intradermal testing administered with 0.01 ml via 28 gauge needle; Testing Extracts from [facility] Recurrent Illnesses Marge is a 37 year old female seen for a 4-week follow-up after starting Breztri for a low FEV1.Zandra can tell that her 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 She was prescribed Symbicort by the Hammer Setter at the hospital but she did not fill it because it cost $75 which is too expensive for her. She was prescribed Spiriva but Dr. Lopez INFORMATION OFFICER and she developed hives on her torso [...] cough, minimal wheezing. Was unable to pick out hand Symbicort due to cost, is using albuterol occasionally. Denies fever, body aches, or chills. Does note fatigue. She has an appointment with pulmonology scheduled next month. She was started on metformin 500 mg with evening meal and is tolerating this well. Is to schedule an appt with mannequin maker at [place], requires referral for this. She has been [...] very self conscious about them3) met w mannequin maker briefly but unable to ffup. interested in bariatric surgery Establish care [facility] Dr[facility] Judd with OBGYN, last Pap Smear 2019, normal. Has custody of sister in law 2 children age 3 and 6. Very stressed regarding this situation.Has anxiety and depression. On celexa prescribed by her CARE TECH. 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 She is feeling a little better.Most depressed about her weight. Has little time for exercise. Also has pre dm, last A1c 2019 6.0. Denies polyuria, polydipsia, polyphagia.Diagnosed with bilateral pneumonia at [facility] urgent care earlier this week.Covid [...] urine for microalbuminstart mounjaro, statin, TOBY inhibitordeclines mannequin maker referral for noweducated re: need for yearly eye examsreassess at next visit Related to Type 2 diabetes mellitus without complication, without long-term current use of insulin - Discussed with Luzma ga that skin testing for PrePen which is passenger representative of the major determinant in penicillin & Pen G passenger representative of the minor determinant group was [...] No feather or down filled bedding.Consider removing cvmb-nt-nthm carpet from bedroom.Lowest humidity possible indoors is [...] Related to Recurrent pneumonia - Discussed at [facility] with Zandra that unfortunately skin testing [...] Recommend the Flu Vaccine - [facility] with Zandra that unfortunately skin [...] to Seasonal allergies - Discussed with Luzma nimco that due to her history of recurrent [...] update Related to Rash [facility].Meet with mannequin maker. Related to Obesity, Class III, BMI 40-49.9 [...]
--- OUTSIDE RECORDS SUMMARY | 2025-01-16 14:05 | XMS_ITS | Clinical Summary ---
Author Organization [facility] [address] [place] [address] [place] [address] [place] [address] Care Team Providers Care School Coordinator Name Role Phone Unavailable Primary Care Provider [...] migh t be different from the original. 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 No 12/23/2020 Within the last year, have y ou been humiliated or emotionally abused in other ways by your partner or ex-partner? No Within the last year, have y ou been kicked, hit, slapped, or otherwise physically hurt by your partner or ex-partner? No 12/23/2020 Within the last year, have y ou been raped or forced to have any kind of sexual activity by your partner or ex-partner? 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 Not on file Not on file Not on file Last Filed Vital Signs Vital Sign Reading Time Taken Comments Blood Pressure 122/78 12/23/2020 8:22 AM CDT Pulse 80 06/10/2018 3:50 PM CAD SPECIALIST Temperature 37.1 C (98.8 F) 06/10/2018 3:50 PM CAD SPECIALIST Respiratory Rate 14 06/10/2018 3:50 PM CAD SPECIALIST Oxygen Saturation 98% 06/10/2018 3:50 PM CAD SPECIALIST Inhaled Oxygen Concentration - - Weight 130.2 kg (287 lb) 12/23/2020 8:22 AM CDT Height 162.6 cm (5' 4) 12/23/2020 8:22 AM CDT Body Mass Index 49.26 12/23/2020 8:22 AM CDT Plan of Treatment Health Maintenance Due Date Last Done Comments DTAP/TDAP/TD VACCINES (1 - Tdap) 2005 HEPATITIS B VACCINES (1 of 3 - 19+ 3-dose series) 2005 HPV VACCINES (1 - 3-dose SCD M series) 2013 Pre-Diabetes and Diabetes Screening 12/18/2021 12/18/2018, 05/02/2018, [...] CDT) CASE REPORT Gynecologic Cytology Report Case: [id number] Authorizing Provider: Marie Gamez, Collected: 10/13/2019 03:24 PM IMPLEMENTATION COORDINATOR Ordering Location: [facility] ITEM PROCESSING CLERK - [id number] Received: 10/14/2019 07:04 AM [employer] First Screen: Nadya Henao Pathologist: Mayuri Cole MD Specimen: LB PAP TP AND HPV PROT, End[employer] 10/30/2019 8:34 AM CDT [facility] Metal Neutralizer Specimen Adequacy Satisfactory for evaluation, endocervical/trans formation zone component present 10/30/2019 8:34 AM CDT [facility] Metal Neutralizer Interpretation Negative for intraepithelial lesion or malignancy 10/30/2019 8:34 AM CDT [facility] Verified by Mayuri Cole MD on 10/30/2019 at 0834 CDT Metal Neutralizer Other Findings Reactive changes associated with inflammation/repai r Moderate inflammation noted 10/30/2019 8:34 AM CDT [facility] Metal Neutralizer Prev Pap Result Last pap: a few years ago Denies Hx of abnormal pap 10/30/2019 8:34 AM CDT [facility] GynLMP 10/05/2019 10/30/2019 8:34 AM CDT [facility] Metal Neutralizer Educational Note 10/30/2019 8:34 AM CDT [facility] Comment:The Pap test is a sc reening test used to aid in the detection of cervical cancer and its precursors. It should not be the sole means by which malignant and premalignant lesions are diagnosed. Both false negative and false positive results may occur. Results must be interpreted in the context of historic and current clinical information. EMBEDDED IMAGE 10/30/2019 8:34 AM CDT [facility] Genital SWAB OF ENDOCERVIX / Unknown Collection / Unknown 10/13/2019 3:24 PM CDT 10/14/2019 7:04 AM CDT Marie Gamez NP PATHOLOGY/CYTOLOGY ORD ERABLES Final Result [facility] CLIA# [id number] [place] [address] * (ABNORMAL) HEMOGLOBIN A1C (12/18/2018 10:38 AM CDT) HEMOGLOBIN A1C 6.0(H) <=5.6 % 12/19/2018 12:11 PM CDT [facility] EST. AVG GLUCOSE, A1C 126 mg/dL 12/19/2018 12:11 PM CDT [facility] Blood 12/18/2018 10:3 8 AM CDT 12/19/2018 11:42 AM CDT Narrative [facility] - 12/19/2018 12:11 PM CDT HGB A1C INTERPRETATION NORMAL: <5.7% PRE-DIABETES: 5.7 - 6.4% DIABETES: 6.5% OR GREATER Richi Payne DO CHEMISTRY ORDERABLES Final Res ult [facility] CLIA# [id number] [place] [address] from Last 3 Months or Most Recently Relevant to Health Maintenance Insurance [address] [place] [id number] RX MEDIMPACT Member Subscriber Plan / Payer (Ef fective for All Dates) Name:Marge García Relation to Subscriber:Self Name:Marge García Payer ID:Not on file Group ID:[id number] Type:RX Commercial Address: [address] RX MEDIMPACT Member Subscriber Plan / Payer (Ef fective for All Dates) Name:Marge García Relation to Subscriber:Spouse Name:Marge García Payer ID:Not on file Group ID:[id number] Type:RX Commercial Address: [address] RX GUERIN PLANS (INTERNAL) [facility] Internal Plans MEDICAID [place] AET Advance Directives For more information, please contact: [phone] * Full Code (Latest Code Status on File) Date Activated Date Inactivated Comments 05/01/2018 6:04 AM 05/01/2018 9:01 AM
--- OUTSIDE RECORDS SUMMARY | 2025-01-16 14:05 | XMS_ITS | Encounter Summary ---
Author Organization [facility] Address [address] [place] [address] Care Team Providers Care Sales Clerk Name Role Phone Akira Reed DO Primary Care Provider [phone] Reason for Visit * Reason Comments Medication Refill Encounter Details Date Type Department Care Team (Late st Contact Info) Description 05/28/2019 Refill [facility] ELECTRICIAN SUPERVISOR AIRPLANE - [address] [facility] [address] [facility] [address] [place] [address] Estefani Bowers MD [address] [facility] [facility] [address] [facility] [address] [facility] [address] [address] control counseling Social History Tobacco [...] 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
--- OUTSIDE RECORDS SUMMARY | 2025-01-16 14:05 | XMS_ITS | Clinical Summary ---
Author Organization [facility] Address [address] [facility] [place] [address] Care Team Providers Care Lining Maker Hand Name Role Phone Unavailable Primary Care Provider Unavailabl e Source Comments [facility],non-ss[facility] rehab Affiliates and Associated Physician Practices is amultiple site organization consisting of ambulatory clinics and hospital sitesin [place], [place], [place] and [place]. This disclosure is being madepursuant to the Care Everywhere program and may not contain all information available regarding this patient. 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
[2025-01-16 14:07] VITALS: BP 134/79; PULSE 96; RESP 18; TEMP 36.8; O2SAT 97
--- NOTE | 2025-01-16 17:46 | ED.GENADULT ---
HPI - General Adult General Chief complaint: Unspecified Stated complaint: URI sx, tender spot to L thigh Time Seen by Provider: 01/16/25 17:38 Source: patient and family Mode of arrival: ambulatory Limitations: no limitations History of Present Illness HPI narrative: 39 YEARS OLD WHITE FEMALE CAME TO THE ED WITH FLU-LIKE SYMPTOMS STARTED A 4 DAYS AGO, FEVER, HOT COLD FEELING, BODY ACHES, TIREDNESS, LONG HOURS OF SLEEP, THE ABOVE SYMPTOMS RESOLVED IN 3 DAYS, PATIENT WOKE UP THIS MORNING HAVING COLD SWEAT, NOTICED REDNESS AT THE LEFT THIGH ANTERIORLY, DENIES ANY ITCHING, WARM TO TOUCH AND TENDER. NOT SURE ABOUT THE POSSIBILITY OF INSECT BITE. SHE DENIES ANY NAUSEA OR VOMITING OR URINARY SYMPTOMS. Related Data Home Medications ?Medication ?Instructions ?Recorded ?Confirmed ?Last Taken ?Type albuterol sulfate 90 mcg/actuation 2 - 4 puff inhalation Q4-6H PRN 12/20/22 12/15/24 Unknown History aerosol inhaler Shortness Of Breath Or Wheezing citalopram 40 mg tablet 40 mg PO HS 12/20/22 12/15/24 Unknown History atorvastatin 10 mg tablet 10 mg PO DAILY 06/26/23 12/15/24 Unknown History etonogestrel 0.12 mg-ethinyl See Rx Instructions .Route .COMPLEX 06/26/23 12/15/24 Unknown History estradiol 0.015 mg/24 hr vaginal ring (NuvaRing) glipizide 5 mg tablet 5 mg PO DAILY 08/26/24 12/16/24 Unknown History albuterol sulfate 90 mcg/actuation 1 puff inhalation Q4H PRN 08/31/24 12/16/24 Unknown History aerosol inhaler (Ventolin HFA) etonogestrel 0.12 mg-ethinyl vag ring vaginal 08/31/24 12/16/24 Unknown History estradiol 0.015 mg/24 hr vaginal ring (EluRyng) fluticasone fur. 100 mcg-umeclid 1 inh inhalation DAILY 08/31/24 12/16/24 Unknown History 62.5 mcg-vilant 25 mcg inhalat.powder (Trelegy Ellipta) lisinopril 5 mg tablet mg 10/22/24 12/15/24 Unknown History ondansetron 4 mg disintegrating mg PO DAILY 12/16/24 12/16/24 Unknown History tablet Allergies Allergy/AdvReac Type Severity Reaction Status Date / Time ciprofloxacin (From Cipro) Allergy Mild rash Verified 12/16/24 14:12 nickel Allergy Mild Rash Verified 12/16/24 14:12 tiotropium (From Spiriva Allergy Mild Hives Verified 12/16/24 14:12 with HandiHaler) poppyseed oil AdvReac Intermediate Nausea and Verified 12/16/24 14:12 Vomiting PMFSH Past Medical History Medical History Asthma Type 2 diabetes mellitus Depression with anxiety Surgical History Surgical History History of cholecystectomy (01/2017) History of dilation and curettage (05/2018) Family History Family History Other Family history non-contributory Social History Social History (System 12/16/24 @ 14:12 by Kusum Gibson) Social History: Surrogate medical decision maker: Ramy Fariaserson, spouse. Code status: Full code. Smoking status: Never smoker Second hand tobacco smoke exposure: No Alcohol intake: never Substance use: never Substance use type: does not use Do You Feel Safe in your Home?: Yes Lack of Transportation: No Lack of Food: Never True Current Housing: I Have Housing Concerned About Future Housing: No Difficulty Paying Gas/Electric Bills: No Difficulty Paying for Meds: No Currently Unemployed: No Education: Associate Degree Difficulty w/ Childcare or Family Care: No Living arrangements: with family Additional living arrangements comments: Lives with spouse and 2 young children ages 4 and 7. Additional occupation/education comments: Works at a [employer]. Spiritual care concerns: No Course Vital Signs Vital signs: Vital Signs Temperature 36.8 C 01/16/25 14:07 Pulse Rate 96 01/16/25 14:07 Respiratory Rate 18 01/16/25 14:07 Blood Pressure 134/79 01/16/25 14:07 Pulse Oximetry 97 01/16/25 14:07 Oxygen Delivery Room Air 01/16/25 14:07 Temperature 36.8 C 01/16/25 14:07 Pulse Rate 96 01/16/25 14:07 Respiratory Rate 18 01/16/25 14:07 Blood Pressure 134/79 09/20/25 14:07 Pulse Oximetry 97 01/16/25 14:07 Oxygen Delivery Room Air 01/16/25 14:07 Medical Decision Making MDM Narrative Medical decision making narrative: PATIENT CAME WITH FLU-LIKE SYMPTOMS, AND CELLULITIS LIKE SYMPTOM OF THE LEFT THIGH VITAL SIGNS ARE STABLE PHYSICAL EXAMINATION CONSISTENT WITH CELLULITIS LEFT THIGH ANTERIORLY DIFFERENTIAL DIAGNOSIS CELLULITIS IN A DIABETIC PATIENT, FLU-LIKE SYMPTOMS BLOOD WORKUP TODAY INCLUDES CBC, CMP, LACTIC ACID, BLOOD CULTURE SHOWED WBC 12.2, SODIUM 132, GLUCOSE 216, PATIENT TESTED NEGATIVE FOR COVID FLU AND RSV PATIENT RECEIVED VANCOMYCIN IV PRIOR TO DISCHARGE ON KEFLEX. THE PT WAS DISCHARGED TO HOME.THE PT,S CONDITION UPON DISCHARGE WAS FAIR,EDUCATION WAS PROVIDED TO THE PT IN REFERENCE TO THE FINAL IMPRESSION,DISCHARGE STUDY RESULTS,TREATMENT,PROGNOSIS AND NEED FOR FOLLOW UP . Differential Diagnosis Differential Diagnosis: DIFFERENTIAL DIAGNOSIS ABOVE Vital Signs Vital Signs: Vital Signs Temperature 36.8 C 01/16/25 14:07 Pulse Rate 96 01/16/25 14:07 Respiratory Rate 18 01/16/25 14:07 Blood Pressure 134/79 01/16/25 14:07 Pulse Oximetry 97 01/16/25 14:07 Oxygen Delivery Room Air 01/16/25 14:07 Temperature 36.8 C 01/16/25 14:07 Pulse Rate 96 01/16/25 14:07 Respiratory Rate 18 01/16/25 14:07 Blood Pressure 134/79 01/16/25 14:07 Pulse Oximetry 97 01/16/25 14:07 Oxygen Delivery Room Air 01/16/25 14:07 Lab Data 01/16/25 18:30 01/16/25 18:30 Labs: Lab Results 01/16/25 01/16/25 Range/Units 18:24 18:30 WBC 12.2 H (4.5-10.0) K/mm3 RBC 4.02 L (4.2-5.4) M/mm3 Hgb 11.2 L (12.0-15.0) g/dL Hct 34.5 L (37.0-47.0) % MCV 85.8 (80-100) fl MCH 27.9 (26-34) pg MCHC 32.5 (32-36) g/dl RDW 13.7 (11.5-14.5) % Plt Count 227 (150-375) k/mm3 MPV 10.2 (7.4-10.4) fl Immature Gran % (Auto) 0.8 H (0-0.5) % Neut % (Auto) 74.1 H (45.5-73.1) % Lymph % (Auto) 18.6 (18.3-44.2) % Coryell % (Auto) 6.1 (2.6-8.5) % Eos % (Auto) 0.1 (0-4.4) % Baso % (Auto) 0.3 (0.2-1.2) % Lymph # (Auto) 2.26 (0.9-3.2) K/mm3 Coryell # (Auto) 0.7 H (0.1-0.6) K/mm3 Eos # (Auto) 0.0 (0-0.3) K/mm3 Baso # (Auto) 0.0 (0.0-0.1) K/mm3 Abs Immat Gran (auto) 0.10 H (0.00-0.031) K/mm3 Absolute Neuts (auto) 9.0 H (1.3-6.7) K/mm3 Absolute Nucleated RBC 0.000 (0.0-0.012) K/mm3 Nucleated RBC % 0.0 (0.0-0.2) % Sodium 132 L (137-145) mmol/L Potassium 3.5 (3.4-5.0) mmol/L Chloride 98 (98-107) mmol/L Carbon Dioxide 25 (22-30) mmol/L Anion Gap 9 (4-12) mmol/L BUN 9 (7-17) mg/dL Creatinine 0.57 L (0.7-1.0) mg/dL Estim Creat Clear Calc 149 ml/min Estimated GFR > 60 (59 - ) Glucose 216 H (65-110) mg/dL Lactic Acid 1.1 (0.7-2.0) mmol/L Calcium 8.6 (8.4-10.2) mg/dL Total Bilirubin 0.9 (0.2-1.3) mg/dL AST 27 (14-36) U/L ALT 26 (6-35) U/L Alkaline Phosphatase 130 H (38-126) U/L Total Protein 7.3 (6.3-8.2) g/dL Albumin 3.8 (3.5-5.1) g/dL Influenza A (RT-PCR) Negative (Negative) Influenza B (RT-PCR) Negative (Negative) RSV (RT-PCR) Negative (Negative) SARS-CoV-2 RNA (RT-PCR) Negative (Negative) Critical Care Time Critical Care Time Critical Care Time: No Discharge Plan Discharge Clinical Impression: Cellulitis Patient Disposition: Home Condition: Stable Instructions: Antibiotic Form, Cellulitis (ED) Additional Instructions: RETURN IF SYMPTOMS ARE WORSENING , CALL YOUR FAMILY PHYSICIAN FOR APPOINTMENT, TAKE TYLENOL, IBUPROFEN NEEDED FOR ACHES AND PAIN, CONTINUE HOME MEDICATIONS. Patient Language: Korean Prescriptions: New cephalexin 500 mg capsule 500 mg PO Q6H 7 Days Qty: 28 0RF No Action atorvastatin 10 mg tablet 10 mg PO DAILY etonogestrel-ethinyl estradiol [NuvaRing] 0.12-0.015 mg/24 hr ring See Rx Instructions .ROUTE .COMPLEX Rx Instructions: vag ring vaginally lisinopril 5 mg tablet glipizide 5 mg tablet 5 mg PO DAILY etonogestrel-ethinyl estradiol [EluRyng] 0.12-0.015 mg/24 hr ring vaginal lisinopril 5 mg tablet 5 mg PO DAILY Qty: 90 2RF atorvastatin 10 mg tablet 10 mg PO DAILY Qty: 90 2RF Trelegy Ellipta 100-62.5-25 mcg blister with device 1 inh inhalation DAILY albuterol sulfate [Ventolin HFA] 90 mcg/actuation HFA aerosol inhaler 1 puff inhalation Q4H PRN Trelegy Ellipta 100-62.5-25 mcg blister with device 1 inh inhalation DAILY Qty: 60 5RF Rx Instructions: Rinse mouth and spit after each use ondansetron 4 mg tablet,disintegrating PO DAILY citalopram 40 mg tablet 40 mg PO HS albuterol sulfate 90 mcg/actuation HFA aerosol inhaler 2 - 4 puff INHALATION Q4-6H PRN (Reason: Shortness Of Breath Or Wheezing) ciprofloxacin HCl [Cipro] 500 mg tablet 500 mg PO Q12H 7 Days Qty: 14 0RF metronidazole 500 mg tablet 500 mg PO Q8H 7 Days Qty: 21 0RF ondansetron 4 mg tablet,disintegrating 4 mg PO Q8H PRN (Reason: nausea and vomiting) Qty: 20 0RF citalopram 40 mg tablet 40 mg PO DAILY Qty: 90 1RF Follow-up/Referrals: Christina Velasco, PAC [Primary Care Provider, Family Practice]
--- OUTSIDE RECORDS SUMMARY | 2025-01-16 18:05 | XMS_ITS | Encounter Summary ---
Author Organization [facility] Address [address] [place] [address] Care Team Providers Care Used Car Sales Supervisor Name Role Phone Akira Reed DO Primary Care Provider [phone] Reason for Visit * Reason Comments Medication Refill Encounter Details Date Type Department Care Team (Late st Contact Info) Description 05/28/2019 Refill [facility] CHIEF VENDOR QUALITY - [address] [facility] [address] [place] [address] Estefani Bowers MD [address] [facility] [address] [address] control counseling Social History Tobacco [...] 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
--- OUTSIDE RECORDS SUMMARY | 2025-01-16 18:05 | XMS_ITS | Clinical Summary ---
Author Organization [employer] [address] [place] [address] [place] [address] [place] [address] Care Team Providers Care Music Composer Name Role Phone Unavailable Primary Care Provider [...] migh t be different from the original. 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 Not on file Not on file Last Filed Vital Signs Vital Sign Reading Time Taken Comments Blood Pressure 122/78 12/23/2020 8:22 AM CDT Pulse 80 06/10/2018 3:50 PM VP CARDIOVASCULAR Temperature 37.1 C (98.8 F) 06/10/2018 3:50 PM VP CARDIOVASCULAR Respiratory Rate 14 06/10/2018 3:50 PM VP CARDIOVASCULAR Oxygen Saturation 98% 06/10/2018 3:50 PM VP CARDIOVASCULAR Inhaled Oxygen Concentration - - Weight 130.2 [...] CDT) CASE REPORT Gynecologic Cytology Report Case: [id number] Authorizing Provider: Marie Gamez, Collected: 10/13/2019 03:24 PM GRAVITY PROSPECTOR Ordering Location: [facility] TRANSMISSION SYSTEM OPERATOR - 714 Received: 10/14/2019 07:04 AM britebill First Screen: Nadya Henao Pathologist: Mayuri Cole MD Specimen: LB PAP TP AND HPV PROT, Endocervix 10/30/2019 8:34 AM CDT [facility] Cue Worker Specimen Adequacy Satisfactory for evaluation, endocervical/trans formation zone component present 10/30/2019 8:34 AM CDT [facility] Cue Worker Interpretation Negative for intraepithelial lesion or malignancy 10/30/2019 8:34 AM CDT [facility] Verified by Mayuri Cole MD on 10/30/2019 at 0834 CDT Cue Worker Other Findings Reactive changes associated with inflammation/repai r Moderate inflammation noted 10/30/2019 8:34 AM CDT [facility] Cue Worker Prev Pap Result Last pap: a few years ago Denies Hx of abnormal pap 10/30/2019 8:34 AM CDT [facility] GynLMP 10/05/2019 10/30/2019 8:34 AM CDT [facility] Cue Worker Educational Note 10/30/2019 8:34 AM CDT [facility] Comment:The Pap test is a sc [...] information. EMBEDDED IMAGE 10/30/2019 8:34 AM CDT [facility] Genital SWAB OF ENDOCERVIX / Unknown Collection / Unknown 10/13/2019 3:24 PM CDT 10/14/2019 7:04 AM CDT Marie Gamez NP PATHOLOGY/CYTOLOGY ORD ERABLES Final Result [facility] CLIA# [id number] [address] [place] [address] * (ABNORMAL) HEMOGLOBIN A1C (12/18/2018 10:38 AM CDT) HEMOGLOBIN A1C 6.0(H) <=5.6 % 12/19/2018 12:11 PM CDT [facility] EST. AVG GLUCOSE, A1C 126 mg/dL 12/19/2018 12:11 PM CDT [facility] Blood 12/18/2018 10:3 8 AM CDT 12/19/2018 11:42 AM CDT Narrative [facility] - 12/19/2018 12:11 PM CDT HGB A1C INTERPRETATION NORMAL: <5.7% PRE-DIABETES: 5.7 - 6.4% DIABETES: 6.5% OR GREATER Richi Payne DO CHEMISTRY ORDERABLES Final Res ult [facility] CLIA# [id number] [place] [address] from Last 3 Months or Most Recently Relevant to Health Maintenance Insurance [address] [place] [address] RX MEDIMPACT Member Subscriber Plan / Payer (Ef fective for All Dates) Name:Marge Garcaí Relation to Subscriber:Self Name:Marge García Payer ID:Not on file Group ID:[id number] Type:RX Commercial Address: [address] RX MEDIMPACT Member Subscriber Plan / Payer (Ef fective for All Dates) Name:Marge García Relation to Subscriber:Spouse Name:Marge García Payer ID:Not on file Group ID:[id number] Type:RX Commercial Address: [address] RX GUERIN PLANS (INTERNAL) [facility] Plans MEDICAID [place] AET Advance Directives For more information, please contact: [phone] * Full Code (Latest Code Status on File) Date Activated Date Inactivated Comments 05/01/2018 6:04 AM 05/01/2018 9:01 AM
--- OUTSIDE RECORDS SUMMARY | 2025-01-16 18:05 | XMS_ITS | Clinical Summary ---
Author Organization [facility] Address [address] [facility] [address] [facility] [place] [address] Care Team Providers Care Welding Specialist Name Role Phone Unavailable Primary Care Provider Unavailabl e Source Comments [facility],non-[facility] Affiliates and Associated Physician Practices is amultiple site organization consisting of ambulatory clinics and hospital sitesin [place], [place] and [place]. This disclosure is being madepursuant to the Care Everywhere program and may not contain all information available regarding this patient. Last updated 18.[facility] Allergies Active Allergy Reactions Criticality Noted Date [...] on file Legal Sex Female 5:10 AM BILLING SERVICES MANAGER Gender Identity Not on file Sexual Orientation [...]
[2025-01-16 18:45] LABS: Hematocrit 34.5 % (37.0-47.0); Hemoglobin 11.2 g/dL (12.0-15.0); Immature Granulocyte Percent A 0.8 % (0-0.5); Lymphocytes Absolute Auto 2.26 K/mm3 (0.9-3.2); Mean Corpuscular HGB Conc 32.5 g/dl (32-36); Mean Corpuscular Hemoglobin 27.9 pg (26-34); Mean Corpuscular Volume 85.8 fl (80-100); Nucleated Red Blood Cells Absolute Auto 0.000 K/mm3 (0.0-0.012); Nucleated Red Blood Cells Perc 0.0 % (0.0-0.2); Platelet Count Result 227 k/mm3 (150-375); Red Blood Count 4.02 M/mm3 (4.2-5.4); White Blood Count 12.2 K/mm3 (4.5-10.0)
[2025-01-16 19:22] LABS: Influenza A QL RT-PCR Negative (Negative); Influenza B QL RT-PCR Negative (Negative); RSV RNA, RT-PCR Negative (Negative); SARS-CoV-2 RNA PCR Negative (Negative)
--- NOTE | 2025-01-16 19:33 | PC.NURSE ---
Called lab about chemistry results for pharm & vanco.
[2025-01-16 19:41] LABS: Alanine Aminotransferase 26 U/L (6-35); Albumin Level 3.8 g/dL (3.5-5.1); Alkaline Phosphatase 130 U/L (38-126); Anion Gap 9 mmol/L (4-12); Aspartate Amino Transferase 27 U/L (14-36); Bilirubin,Total 0.9 mg/dL (0.2-1.3); Blood Urea Nitrogen 9 mg/dL (7-17); Calcium 8.6 mg/dL (8.4-10.2); Carbon Dioxide 25 mmol/L (22-30); Chloride 98 mmol/L (98-107); Estimated CRCL calculation 149 ml/min; Estimated Glomerular Filt Rate > 60; Glucose 216 mg/dL (65-110); Potassium 3.5 mmol/L (3.4-5.0); Sodium 132 mmol/L (137-145); Total Protein 7.3 g/dL (6.3-8.2)
[2025-01-16] MEDS: VANCOMYCIN 2,000 MG/NS 500 ML 2,000 MG/500 ML BAG 250 MG IVPB (20:02)
[2025-01-16 20:10] VITALS: BP 145/78; PULSE 90; RESP 20; TEMP 36.3; O2SAT 96
== END 2025-01-16 22:08 | disposition home or self-care (01) ==
PROVIDERS: Emergency Provider Emergency Medicine; PCP Physician Assistant Medical
DX: L03.116 Cellulitis of left lower limb (principal); Z20.822 Contact with and (suspected) exposure to COVID-19; J45.909 Unspecified asthma, uncomplicated; E11.9 Type 2 diabetes mellitus without complications; F41.8 Other specified anxiety disorders; Z79.899 Other long term (current) drug therapy; Z79.84 Long term (current) use of oral hypoglycemic drugs
CPT/HCPCS: 36415; 80053; 83605; 85025; 87637; 96365; 96366; 99284; J3373

== ENCOUNTER 2025-01-18 10:33 | Emergency (ER) | payer OTHER, SELFPAY ==
--- OUTSIDE RECORDS SUMMARY | 2025-01-04 11:25 | XMS_ITS | Continuity of Care Document ---
Author Organization [facility] Address [address] [place] [address] Phone Care Team Providers Care Hand Cooper Helper Name Role Phone Joshua KITCHEN, Wendy Unavailable [...] INITIAL ASSESSMENT AND INTERVENTION, INDIVIDUAL, EACH 15 MN BODY MASS INDEX DOCD SYST BP LT 130 MM HG DIAST BP < 80 MM HG PREVENTATIVE-EST: 18-39 OFFICE PNPER-EWJ-NTSAPMML BODY MASS INDEX DOCD SYST BP LT 130 MM HG DIAST BP < 80 MM HG OFFICE FBSKP-LIS-ZIAJRRWS BODY MASS INDEX DOCD SYST BP LT 130 MM HG DIAST BP 80-89 MM HG BODY MASS INDEX DOCD SYST BP >= 140 MM HG6 IT DIAST BP 80-89 MM HG Ingestion Challenge Test, Inital 120 Min utes Allergy Testing, Any Combination Of Perc utaneous A OFFICE HUVIP-LRW-TLMDRGUN OFFICE KNNTB-UEI-TRIMDEAD BODY MASS INDEX DOCD SYST BP LT 130 MM HG DIAST BP 80-89 MM HG ALLERGY SKIN TESTS ALLERGY SKIN TESTS ID HEALTH RISK ASSESSMENT, PATIENT-FOCUSED OFFICE ORYLJ-KCN-FJTWYMGC BODY MASS INDEX DOCD SYST BP LT 130 MM HG DIAST BP 80-89 MM HG SPIROMETRY BEFORE & AFTER BRONCHODIALATO R MOUTHPIECE OFFICE BYCMS-HRZ-MDLN-MED BODY MASS INDEX [facility] LT 130 MM [...] SPIROMETRY BEFORE & AFTER BRONCHODIALATO R OFFICE JAACZ-JZZ-FSCMXKPE BODY MASS INDEX DOCD SYST BP GE 130 - 139MM HG DIAST BP < 80 MM HG Chest Xray, 2 Views COVID, Flu A, Flu B OFFICE ODQDH-ADZ-IIAXPOLE SYST BP LT 130 MM HG DIAST BP 80-89 MM HG CBC, INC PLATELETS AND DIFFERENTIAL COMPREHEN METABOLIC PANEL CMP ROUTINE VENIPUNCTURE OFFICE LJPXG-HDX-QJHSZMLS SYST BP LT 130 MM HG DIAST BP < 80 MM HG NUTRITIONAL THERAPY; INITIAL ASSESSMENT AND INTERVENTION, INDIVIDUAL, EACH 15 MN Pt inelig neg scrn depres PREVENTATIVE-NEW: 18-39 [...] Diagnoses Date Provider Providers Copied on Encounter [facility], [address], [place], [place], [address] , [place] tel:[phone] [facility] No Information 5 Joshua Nguyen. [address], [address], [place], [place], [address], [place]. tel:[phone] [facility], [address], [place], [place], [address] , [place] tel: [phone] [facility] No Information 5 John Cheyanne. [address], [place], [place], [address], [place]. tel:[phone] [facility], [address], [place], [place], [address] , [place] tel: [phone] [facility] Type 2 diabetes mellitus with hyperglycemiaSeve re obesity (BMI >= 40) 4 Agapito Taylor. [address], [facility] [address], [place], [place], [address], [place]. tel:[phone] Referring Provider: Cheyanne Lopez, [address], [place], [address] . tel:[phone] PREVENTATIVE- EST: 18-39 [facility], [address], [place], [place], [address] , [place] tel: [phone] [facility] preventive exam (chief complaint)C hronic Conditions (chief complaint) Type 2 diabetes mellitus with hyperglycemiaBody mass index [BMI] 45.0-49.9, adultEncounter for general adult medical examination without abnormal findings 4 John Edward. [address], [place], [place], [address], [place]. tel:[phone] Referring Provider: Cheyanne Lopez, [address], [place], [address] . tel:[phone] [facility], [address], [place], [place], [address] , [place] tel:[phone] [facility] No Information 4 John Edward. [address], [place], [place], [address], [place]. tel:[phone] OFFICE DEXGJ-MST-CPQ ANDED [facility], [address], [place], [place], [address] , [place] tel: [phone] [facility] Allergies (chief complaint) Allergic rhinitis due to house dust miteSeasonal allergic rhinitis due to pollenHistory of penicillin allergyRecurrent pneumoniaPruritic dermatitis Jun- 4 Lewis Elyra. [address], [address], [place], [place], [address], [place]. tel:[phone] Referring Provider: [address], [place], [address] . tel:[phone] OFFICE FWPOU-TBJ-DWP [facility], [address], [place], [place], [address] , [place] tel:[phone] [facility] Chronic Conditions (chief complaint)c hronic conditions (chief complaint) Type 2 diabetes mellitus without complication, without long-term current use of insulinBody mass index [BMI] 45.0-49.9, adult Fe- 4 John Edward. [address], [place], [place], [address], [place]. tel:[phone] Referring Provider: [address], [place], [address] . tel:[phone] OFFICE BZXQC-UOD-HPM ANDED [facility], [address], [place], [place], [address] , [place] tel:[phone] [facility] PCN Allergy (chief complaint) Penicillin allergySeasonal allergic rhinitis due to pollenAllergic rhinitis due to house dust mite 4 Lewisdivina Nguyen. [address], [address], [place], [place], [address], [place]. tel:[phone] Referring Provider: [address], [place], [address] . tel:[phone] OFFICE ELMKG-VZN-ZTA [facility], [address], [place], [place], [address] , [place] tel:[phone] [facility] [place] Allergies (chief complaint) Recurrent sinus infectionsSeasona l allergic rhinitis due to pollenAllergic rhinitis due to house dust mite 3 Lewis Elyra. [address], [address], [address], . tel:[phone] Referring Provider: [address], [place], [address] . tel:[phone] OFFICE ACDNC-TKA-JNH ANDED [facility], [address], [place], [place], [address] , [place] tel:[phone] [facility] Recurrent Illnesses (chief complaint) Recurrent pneumoniaSeasonal allergies 3 Lewis Elyra. [address], [address], [address], [place]. tel:[phone] Referring Provider: [address], [place], [address] . tel:[phone] OFFICE LKGCS-AOB-RLP P-MED [facility], [address], [place], [place], [address] , [place] tel: [phone] [facility] Recurrent Infections (chief complaint) Recurrent pneumoniaRecurren t sinus infectionsSeasona l allergies 3 Lewis Elyra. [address] , [address], [address], [place]. tel:[phone] Referring Provider: [address], [place], [address] . tel:[phone] Transitional Care- First 7 Days Of Discharge [facility], [address], [place], [place], [address] , [place] tel:[phone] [facility] Follow-Up (chief complaint) Acute pneumoniaType 2 diabetes mellitus without complication, without long-term current use of insulinHospital discharge follow-up [address] [facility], [facility] [address], [place], [address], [place]. tel:[phone] Referring Provider: [address], [place], [address] . tel:[phone] OFFICE NBJVF-JXM-NIO GAVIN [facility], [address], [place], [place], [address] , tel: [phone] [facility] IM Patient encounter (chief complaint) Acute cough 3 John Edward. [address], [place], [place], [address], . tel:[phone] Referring Provider: Cheyanne Lopez, [address], [place], [address] . tel:[phone] [facility], [address], [place], [place], [address] , tel: [phone] [facility] IM Acute upper respiratory infection, unspecified 2 John Edward. [address], [place], [place], [address], . tel:[phone] Referring Provider: Cheyanne Lopez, [address], [place], [address] . tel:[phone] OFFICE ITYEN-ADW-WNF ANDED [facility], [address], [place], [place], [address] , tel: [phone] [facility] IM acute visit (chief complaint) Acute diarrhea 2 Erik Kongn. [address], [place], [place], [address], . tel:[phone] Referring Provider: Cheyanne Lopez, [address], [place], [address] . tel:[phone] OFFICE GFZXO-QLY-PDX ANDED [facility], [address], [place], [place], [address] , tel: [phone] [facility] IM Patient encounter (chief complaint) Severe obesity (BMI >= 40)Asymptomatic varicose veinsRashEncounte r for general adult medical examination without abnormal findingsHyperglyc emiaAnemia, unspecified type 2 John Edward. [address], [place], [place], [address], . tel:[phone] Referring Provider: Cheyanne Lopez, [address], [place], [address] . tel:[phone] [facility], [address], [place], [place], [address] , [place] tel: [phone] [facility] Obesity, Class III, BMI 40-49.9 (morbid obesity)Prediabet es 2 Agapito Taylor. [address], [address], [place], [place], [address], [place]. tel:[phone] Referring Provider: Julianne García, [address], [place], [address] . tel:[phone] [facility], [address], [place], [place], [address] , [place] tel: [phone] [facility] Cough 2 John Edward. [address], [place], [place], [address], [place]. tel:[phone] PREVENTATIVE- NEW: 18-39 [facility], [address], [place], [place], [address] , tel: [phone] [facility] Establish care (chief complaint) AnxietyPrediabete sPneumonia of both lungs due to infectious organism, unspecified part of lungEncounter for general adult medical examination without abnormal findingsDepressio n, unspecifiedObesit y, Class III, BMI 40-49.9 (morbid obesity) 1 Erik Harper [address], [place], [place], [address], [place]. tel:[phone] Referring Provider: Cheyanne Lopez, [address], [place], [address] . tel:[phone] [facility], [address], [place], [place], [address] , [place] tel: [phone] [facility] No Information 1 Erik Kebede. [address], [place], [place], [address], [place]. tel:[phone] Family History Family Member Type Diagnosis Age At Onset Mother Problem Obesity Father Problem Diabetes mellitus Mother Problem Diabetes mellitus Immunizations Vaccine Date Status Comments J&J COVID/Adenovirus Vaccine [id number] viral particles/0.5mL administered Source: Other [employer] ider Payers Payer name Insurance type Covered democrat ID Anil stapleton(s) No Information Social History [...] was NEGATIVE to Penicillin G & Penicilloyl- vujv-O-Vcqbbx (Pre-Pen). Drug dose challenge to AMOXICILLIN was [...] the reagents Penicillin G, Penicilloic acid, Penicilloyl- shyk-A-Dilkzl (Pre-Pen) and ampicillin. Marge was initially tested [...] 2+to grasses (Stuart, Orchard, Dahlia, Redtop, Fescue, De Young, Sweet Vernal) and Dermatophagoides farinae & Dermatophagoides pteronyssinus and negative to cat, dog, cockroach, guinea pig, mixed feathers, mouse, rabbit, trees (White tomas, Birch, Elm, Allegany, Maple, Toledo, Red Elk River, Black Stonewall, Bernalillo, Sedgwick, Homeland, Blue [place], Monroeton & Herndon), weeds (Cocklebur, Dock Westley, Hungarian Plantain, Lambs Quarter, Sanders elder, Ragweed, Cook Islander Thistle, Sagebrush, Pigweed & Kochia), grasses (Bahia, Bermuda, Agusto, Kentucky Blue, Stuart & Tampico Pollen), molds (Aspergillus fumigatus, Serena, Tampico Smut, Epicoccum, Alternaria, Cladosporium, Aureobasidium, Drechslera, Fusarium, Aspergillus mix, Phoma, Penicillium, Botrytis cinerea, Geotrichum candidum, Rhodotorula, Sarocladium strictum, Stemphylium, solani, Trichophyton) *Percutaneous skin tests administered with Multi-Test PC, [employer] Intradermal testing administered with 0.01 ml via 28 gauge needle; Testing Extracts from [employer] Recurrent Illnesses Marge is a 37 year old female seen for a 4-week follow-up after starting Breztri for a low FEV1.Zandra can tell that 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 She was prescribed Symbicort by the Guide Dog Mobility Instructor at the hospital but she did not fill it because it cost $75 which is too expensive for her. She was prescribed Spiriva but Dr. Lopez BUSINESS MACHINE MECHANIC and she developed hives on her torso [...] productive cough, minimal wheezing. 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 Denies fever, body aches, or chills. Does note fatigue. She has an appointment with pulmonology scheduled next month. She was started on metformin 500 mg with evening meal and is tolerating this well. Is to schedule an appt with aeronautical engineering professor at [employer], requires referral for this. She has been [...] very self conscious about them3) met w aeronautical engineering professor briefly but unable to ffup. interested in bariatric surgery Establish care Pt presents to [facility] with Dr. Judd with OBGYN, last Pap Smear 2019, normal. Has custody of sister in law 2 children age 3 and 6. Very stressed regarding this situation.Has anxiety and depression. 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 She is feeling a little better.Most depressed about her weight. Has little time for exercise. Also has pre dm, last A1c 2019 6.0. Denies polyuria, polydipsia, polyphagia.Diagnosed with bilateral pneumonia at [facility] urgent care earlier this week.Covid [...] urine for microalbuminstart mounjaro, statin, TOBY inhibitordeclines aeronautical engineering professor referral for noweducated re: need for yearly eye examsreassess at next visit Related to Type 2 diabetes mellitus without complication, without long-term current use of insulin - Discussed with Luzma ga that skin testing for PrePen which is advertising sales representative of the major determinant in penicillin & Pen G advertising sales representative of the minor determinant group [...] No feather or down filled bedding.Consider removing nfqx-cv-sfie carpet from bedroom.Lowest humidity possible indoors is [...] to Recurrent pneumonia - Discussed at [facility] with Zandra that unfortunately skin [...] the Flu Vaccine - [facility] that unfortunately skin testing [...] inflammation. - Also discussed at length with Zandar that her history of recurrent infection may [...] Related to Rash [facility].Meet with aeronautical engineering professor. Related to Obesity, Class III, BMI 40-49.9 [...]
[2025-01-18 10:53] VITALS: BP 146/85; PULSE 86; RESP 18; TEMP 36.3; O2SAT 97
--- OUTSIDE RECORDS SUMMARY | 2025-01-18 11:40 | XMS_ITS | Clinical Summary ---
Author Organization [email or web address] Address [address] [facility] [place] [address] Care Team Providers Care Change Manager Name Role Phone Unavailable Primary Care Provider Unavailabl e Source Comments [email or web address],non-[facility] Affiliates and Associated Physician Practices is amultiple site organization consisting of ambulatory clinics and hospital sitesin [place], [place] and [place]. This disclosure is being madepursuant to the Care Everywhere program and may not contain all information available regarding this patient. Last updated 18.[email or web address] Allergies Active Allergy Reactions Criticality Noted Date [...] on file Legal Sex Female 5:10 AM RED HAT LINUX ENGINEER Gender Identity Not on file Sexual Orientation [...]
--- OUTSIDE RECORDS SUMMARY | 2025-01-18 11:40 | XMS_ITS | Encounter Summary ---
Author Organization [facility] Address [address] [place] [address] Care Team Providers Care Slubber Tender Name Role Phone Akira Reed DO Primary Care Provider [phone] Reason for Visit * Reason Comments Medication Refill Encounter Details Date Type Department Care Team (Late st Contact Info) Description 05/28/2019 Refill [facility] BODY AND FENDER WORKER - [address] [facility] [address] [place] [address] Estefani Bowers MD [address] [facility] [address] [address] control counseling Social History Tobacco [...] 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
--- OUTSIDE RECORDS SUMMARY | 2025-01-18 11:40 | XMS_ITS | Clinical Summary ---
Author Organization [employer] [address] [place] [address] [place] [address] [place] [address] Care Team Providers Care Model Photographers' Name Role Phone Unavailable Primary Care Provider [...] migh t be different from the original. 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 CAREER MANAGER - 714 Received: 10/14/2019 07:04 AM [employer] First Screen: Nadya Henao Pathologist: Mayuri Cole MD Specimen: LB PAP TP AND HPV PROT, Endocervix 10/30/2019 8:34 AM CDT [facility] Waste Collector Specimen Adequacy Satisfactory for evaluation, endocervical/trans formation zone component present 10/30/2019 8:34 AM CDT [facility] Waste Collector Interpretation Negative for intraepithelial lesion or malignancy 10/30/2019 8:34 AM CDT [facility] Verified by Mayuri Cole MD on 10/30/2019 at 0834 CDT Waste Collector Other Findings Reactive changes associated with inflammation/repai r Moderate inflammation noted 10/30/2019 8:34 AM CDT [facility] Waste Collector Prev Pap Result Last pap: a few years ago Denies Hx of abnormal pap 10/30/2019 8:34 AM CDT [facility] GynLMP 10/05/2019 10/30/2019 8:34 AM CDT [facility] Waste Collector Educational Note 10/30/2019 8:34 AM CDT [facility] Comment:The Pap test is a sc [...] information. EMBEDDED IMAGE 10/30/2019 8:34 AM CDT [facility] Genital SWAB OF ENDOCERVIX / Unknown Collection / Unknown 10/13/2019 3:24 PM CDT 10/14/2019 7:04 AM CDT Marie Gamez NP PATHOLOGY/CYTOLOGY ORD ERABLES Final Result [facility] CLIA# [id number] [address] [place] [address] * (ABNORMAL) HEMOGLOBIN A1C (12/18/2018 10:38 AM CDT) HEMOGLOBIN A1C 6.0(H) <=5.6 % 12/19/2018 12:11 PM CDT [facility] EST. AVG GLUCOSE, A1C 126 mg/dL 12/19/2018 12:11 PM CDT [facility] Blood 12/18/2018 10:3 8 AM CDT 12/19/2018 11:42 AM CDT Narrative [facility] - 12/19/2018 12:11 PM CDT HGB A1C INTERPRETATION NORMAL: <5.7% PRE-DIABETES: 5.7 - 6.4% DIABETES: 6.5% OR GREATER Richi Payne DO CHEMISTRY ORDERABLES Final Res ult [facility] CLIA# [id number] [address] [place] [address] from Last 3 Months or Most Recently Relevant to Health Maintenance Insurance [address] [place] [address] RX MEDIMPACT Member Subscriber Plan / Payer [...] Advance Directives For more information, please contact: [phone] * Full Code (Latest Code Status on File) Date Activated Date Inactivated Comments 05/01/2018 6:04 AM 05/01/2018 9:01 AM
--- OUTSIDE RECORDS SUMMARY | 2025-01-18 13:12 | XMS_ITS | Clinical Summary ---
Author Organization [facility] [employer] Address [address] [facility] [place] [address] Care Team Providers Care Echo Tech Name Role Phone Unavailable Primary Care Provider Unavailabl e Source Comments [facility] [employer],non-[facility] Affiliates and Associated Physician Practices is amultiple site organization consisting of ambulatory clinics and hospital sitesin [place], [place], [place] and [place]. This disclosure is being madepursuant to the Care Everywhere program and may not contain all information available regarding this patient. Last updated 18.[facility] [employer] Allergies Active Allergy Reactions Criticality Noted Date [...] on file Legal Sex Female 5:10 AM THIRD MILLER Gender Identity Not on file Sexual Orientation [...]
--- OUTSIDE RECORDS SUMMARY | 2025-01-18 13:12 | XMS_ITS | Clinical Summary ---
Author Organization [employer] [address] [place] [address] [place] [address] STEPHEN Castellano [address] Care Team Providers Care Screw Driver Operator Name Role Phone Unavailable Primary Care Provider [...] migh t be different from the original. OB-NUTRITION SERVICES WORKER Problem Noted Date Diagnosed Date Prediabetes 05/12/2018 [...] AM CDT Pulse 80 06/10/2018 3:50 PM MANUAL EQUIPMENT MECHANIC Temperature 37.1 C (98.8 F) 06/10/2018 3:50 PM MANUAL EQUIPMENT MECHANIC Respiratory Rate 14 06/10/2018 3:50 PM MANUAL EQUIPMENT MECHANIC Oxygen Saturation 98% 06/10/2018 3:50 PM MANUAL EQUIPMENT MECHANIC Inhaled Oxygen Concentration - - Weight 130.2 [...] CDT) CASE REPORT Gynecologic Cytology Report Case: [id number] Authorizing Provider: Marie Gamez, Collected: 10/13/2019 03:24 PM INVOICE CHECKER Ordering Location: [facility] UPPER LEATHER CUTTER - 714 Received: 10/14/2019 07:04 AM [employer] First Screen: Nadya Henao Pathologist: Mayuri Cole MD Specimen: LB PAP TP AND HPV PROT, Endocervix 10/30/2019 8:34 AM CDT [facility] Business Development Coordinator Specimen Adequacy Satisfactory for evaluation, endocervical/trans formation zone component present 10/30/2019 8:34 AM CDT [facility] Business Development Coordinator Interpretation Negative for intraepithelial lesion or malignancy 10/30/2019 8:34 AM CDT [facility] Verified by Mayuri Cole MD on 10/30/2019 at 0834 CDT Business Development Coordinator Other Findings Reactive changes associated with inflammation/repai r Moderate inflammation noted 10/30/2019 8:34 AM CDT [facility] Business Development Coordinator Prev Pap Result Last pap: a few years ago Denies Hx of abnormal pap 10/30/2019 8:34 AM CDT [facility] GynLMP 10/05/2019 10/30/2019 8:34 AM CDT [facility] Business Development Coordinator Educational Note 10/30/2019 8:34 AM CDT [facility] Comment:The Pap test is a [...] information. EMBEDDED IMAGE 10/30/2019 8:34 AM CDT [facility] Genital SWAB OF ENDOCERVIX / Unknown Collection / Unknown 10/13/2019 3:24 PM CDT 10/14/2019 7:04 AM CDT Marie Gamez NP PATHOLOGY/CYTOLOGY ORD ERABLES Final Result [facility] CLIA# [id number] [place] [address] * (ABNORMAL) HEMOGLOBIN A1C (12/18/2018 10:38 AM CDT) HEMOGLOBIN A1C 6.0(H) <=5.6 % 12/19/2018 12:11 PM CDT [facility] EST. AVG GLUCOSE, A1C 126 mg/dL 12/19/2018 12:11 PM CDT [facility] Blood 12/18/2018 10:3 8 AM CDT 12/19/2018 11:42 AM CDT Narrative [facility] - 12/19/2018 12:11 PM CDT HGB A1C INTERPRETATION NORMAL: <5.7% PRE-DIABETES: 5.7 - 6.4% DIABETES: 6.5% OR GREATER Richi Payne DO CHEMISTRY ORDERABLES Final Res ult [facility] CLIA# [id number] [place] [address] from Last 3 Months or Most Recently Relevant to Health Maintenance Insurance [address] [place] [address] RX MEDIMPACT Member Subscriber Plan / Payer [...] GUERIN PLANS (INTERNAL) [facility] Internal Plans MEDICAID [place] AET Advance Directives For more information, please contact: [phone] * Full Code (Latest Code Status on File) Date Activated Date Inactivated Comments 05/01/2018 6:04 AM 05/01/2018 9:01 AM
--- OUTSIDE RECORDS SUMMARY | 2025-01-18 13:12 | XMS_ITS | Encounter Summary ---
Author Organization [facility] Address [address] [place] [address] Care Team Providers Care Electric Range Servicer Name Role Phone Akira Reed DO Primary Care Provider [phone] Reason for Visit * Reason Comments Medication Refill Encounter Details Date Type Department Care Team (Late st Contact Info) Description 05/28/2019 Refill [facility] YACHT RIGGER - [address] [facility] [address] [place] [address] Estefani Bowers MD [address] [facility] [address] [address] control counseling Social History Tobacco [...] 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
[2025-01-18 13:21] LABS: Hematocrit 32.9 % (37.0-47.0); Hemoglobin 10.5 g/dL (12.0-15.0); Immature Granulocyte Percent A 1.0 % (0-0.5); Lymphocytes Absolute Auto 2.26 K/mm3 (0.9-3.2); Mean Corpuscular HGB Conc 31.9 g/dl (32-36); Mean Corpuscular Hemoglobin 27.9 pg (26-34); Mean Corpuscular Volume 87.5 fl (80-100); Nucleated Red Blood Cells Absolute Auto 0.000 K/mm3 (0.0-0.012); Nucleated Red Blood Cells Perc 0.0 % (0.0-0.2); Platelet Count Result 246 k/mm3 (150-375); Red Blood Count 3.76 M/mm3 (4.2-5.4); White Blood Count 9.7 K/mm3 (4.5-10.0)
[2025-01-18 13:30] LABS: Alanine Aminotransferase 23 U/L (6-35); Albumin Level 3.5 g/dL (3.5-5.1); Alkaline Phosphatase 137 U/L (38-126); Anion Gap 8 mmol/L (4-12); Aspartate Amino Transferase 34 U/L (14-36); Bilirubin,Total 0.6 mg/dL (0.2-1.3); Blood Urea Nitrogen 6 mg/dL (7-17); Calcium 8.2 mg/dL (8.4-10.2); Carbon Dioxide 29 mmol/L (22-30); Chloride 97 mmol/L (98-107); Estimated CRCL calculation 164 ml/min; Estimated Glomerular Filt Rate > 60; Glucose 265 mg/dL (65-110); Potassium 3.5 mmol/L (3.4-5.0); Sodium 134 mmol/L (137-145); Total Protein 7.1 g/dL (6.3-8.2)
--- NOTE | 2025-01-18 14:03 | ED_ITS ---
HPI - Wound/Laceration General Chief Complaint: Wound/Laceration Stated Complaint: cellulitis to bilat legs Time Seen by Provider: 01/18/25 12:17 History of Present Illness HPI narrative: Patient is a 39-year-old female who who presents ER with cellulitis. Seen 2 days ago a for the same issue. Prescribe cephalexin. She feels like the redness is getting worse and that it has also extended past the line of demarcation that she graeme in a couple days ago. She has not had any fevers or chills since starting her antibiotics. No drainage from the infection site. Related Data Home Medications ?Medication ?Instructions ?Recorded ?Confirmed ?Last Taken ?Type albuterol sulfate 90 mcg/actuation 2 - 4 puff inhalati on Q4-6H PRN 12/20/22 12/15/24 Unknown History aerosol inhaler Shortness Of Breath Or Wheez ing citalopram 40 mg tablet 40 mg PO HS 12/20/22 5 Unknown History atorvastatin 10 mg tablet 10 mg PO DAILY 06/26/2311/27 Unknown History etonogestrel 0.12 mg-ethinyl See Rx Instructions .Rout e .COMPLEX 06/26/23 12/15/24 Unknown History estradiol 0.015 mg/24 hr vaginal ring (NuvaRing) glipizide 5 mg tablet 5 mg PO DAILY 08/26/2412/16 Unknown History albuterol sulfate 90 mcg/actuation 1 puff inhalation Q 4H PRN 08/31/24 12/16/24 Unknown History aerosol inhaler (Ventolin HFA) etonogestrel 0.12 mg-ethinyl vag ring vaginal 08/31/24 12/16/24 Unknown History estradiol 0.015 mg/24 hr vaginal ring (EluRyng) fluticasone fur. 100 mcg-umeclid 1 inh inhalation LYNNETTE Y 08/31/24 12/16/24 Unknown History 62.5 mcg-vilant 25 mcg inhalat.powder (Trelegy Ellipta) lisinopril 5 mg tablet mg 10/22/24 12/15/24 Unknown History ondansetron 4 mg disintegrating mg PO DAILY 12/16/24 0 12/16/24 Unknown History tablet Allergies Allergy/AdvReac Type Severity Reaction Status Date / Time ciprofloxacin (From Cipro) Allergy Mild rash Verified 01/18/25 11:35 nickel Allergy Mild Rash Verified 01/18/25 11:35 tiotropium (From Spiriva Allergy Mild Hives Verified 01/18/25 11:35 with HandiHaler) poppyseed oil AdvReac Intermediate Nausea and Verified 01/18/25 11:35 Vomiting Review of Systems 2 Review of Systems: All systems reviewed & are unremarkable except as noted in HPI and below Constitutional: Constitutional: Reports no additional constitutional complaints Musculoskeletal: Musculoskeletal: Reports no additional musculoskeletal complaints Integumentary/Breasts: Skin/Breast: Reports system reviewed and no additional complaints, except as docu PMFSH Past Medical History Medical History Asthma Type 2 diabetes mellitus Depression with anxiety Surgical History Surgical History History of cholecystectomy (01/2017) History of dilation and curettage (05/2018) Family History Family History Other Family history non-contributory Social History Social History (System 12/16/24 @ 14:12 by Kusum Gibson) Social History: Surrogate medical decision maker: Ramy García, spouse. Code status: Full code. Smoking status: Never smoker Second hand tobacco smoke exposure: No Alcohol intake: never Substance use: never Substance use type: does not use Do You Feel Safe in your Home?: Yes Lack of Transportation: No Lack of Food: Never True Current Housing: I Have Housing Concerned About Future Housing: No Difficulty Paying Gas/Electric Bills: No Difficulty Paying for Meds: No Currently Unemployed: No Education: Associate Degree Difficulty w/ Childcare or Family Care: No Living arrangements: with family Additional living arrangements comments: Lives with spouse and 2 young children ages 4 and 7. Additional occupation/education comments: Works at a [employer]. Spiritual care concerns: No Exam 2 Narrative: GENERAL: Well-appearing, well-nourished, and in no acute distress. HEAD: Normocephalic, atraumatic. ENT: Mucous membranes moist. CHEST: Clear to auscultation. No respiratory distress. HEART: Regular rate and rhythm. Normal peripheral pulses. EXTREMITIES: Normal range of motion. No edema. SKIN: Warm, dry, cellulitis left anterior thigh as well as smaller proximal right thigh. No fluctuance. NEURO: Alert and oriented x3. PSYCH: Normal mood and affect. Course Course Emergency Course: Leukocytosis improving but clinically infection has spread. Will also place on Bactrim for home. Vital Signs Vital signs: Vital Signs Temperature 97.4 F L 01/18/25 10:53 Pulse Rate 86 01/18/25 10:53 Respiratory Rate 18 01/18/25 10:53 Blood Pressure 146/85 H 01/18/25 10:53 Pulse Oximetry 97 01/18/25 10:53 Oxygen Delivery Room Air 01/18/25 10:53 Temperature 97.4 F L 01/18/25 10:53 Pulse Rate 86 01/18/25 10:53 Respiratory Rate 18 01/18/25 10:53 Blood Pressure 146/85 H 01/18/25 10:53 Pulse Oximetry 97 01/18/25 10:53 Oxygen Delivery Room Air 01/18/25 10:53 MDM - Wound/Laceration Lab Data 01/18/25 13:11 01/18/25 13:11 Labs: Lab Results 01/18/25 Range/Units 13:11 WBC 9.7 (4.5-10.0) K/mm3 RBC 3.76 L (4.2-5.4) M/mm3 Hgb 10.5 L (12.0-15.0) g/dL Hct 32.9 L (37.0-47.0) % MCV 87.5 (80-100) fl MCH 27.9 (26-34) pg MCHC 31.9 L (32-36) g/dl RDW 13.4 (11.5-14.5) % Plt Count 246 (150-375) k/mm3 MPV 9.9 (7.4-10.4) fl Immature Gran % (Auto) 1.0 H (0-0.5) % Neut % (Auto) 71.0 (45.5-73.1) % Lymph % (Auto) 23.4 (18.3-44.2) % [place] % (Auto) 3.3 (2.6-8.5) % Eos % (Auto) 0.9 (0-4.4) % Baso % (Auto) 0.4 (0.2-1.2) % Lymph # (Auto) 2.26 (0.9-3.2) K/mm3 [place] # (Auto) 0.3 (0.1-0.6) K/mm3 Eos # (Auto) 0.1 (0-0.3) K/mm3 Baso # (Auto) 0.0 (0.0-0.1) K/mm3 Abs Immat Gran (auto) 0.10 H (0.00-0.031) K/mm3 Absolute Neuts (auto) 6.8 H (1.3-6.7) K/mm3 Absolute Nucleated RBC 0.000 (0.0-0.012) K/mm3 Nucleated RBC % 0.0 (0.0-0.2) % Sodium 134 L (137-145) mmol/L Potassium 3.5 (3.4-5.0) mmol/L Chloride 97 L (98-107) mmol/L Carbon Dioxide 29 (22-30) mmol/L Anion Gap 8 (4-12) mmol/L BUN 6 L (7-17) mg/dL Creatinine 0.50 L (0.7-1.0) mg/dL Estim Creat Clear Calc 164 ml/min Estimated GFR > 60 (59 - ) Glucose 265 H (65-110) mg/dL Calcium 8.2 L (8.4-10.2) mg/dL Total Bilirubin 0.6 (0.2-1.3) mg/dL AST 34 (14-36) U/L ALT 23 (6-35) U/L Alkaline Phosphatase 137 H (38-126) U/L Total Protein 7.1 (6.3-8.2) g/dL Albumin 3.5 (3.5-5.1) g/dL Discharge Plan Discharge Clinical Impression: Cellulitis Patient Disposition: Home Condition: Stable Instructions: Antibiotic Form, Cellulitis (ED) Additional Instructions: Return to the ER if you have fever over 100.4? F, you can not keep down food water, you lose consciousness, or you have additional concerns. Patient Language: Bengali Prescriptions: New clindamycin HCl [Cleocin HCl] 150 mg capsule 450 mg PO TID 7 Days Qty: 63 0RF Discontinued cephalexin 500 mg capsule 500 mg PO Q6H 7 Days Qty: 28 0RF No Action atorvastatin 10 mg tablet 10 mg PO DAILY etonogestrel-ethinyl estradiol [NuvaRing] 0.12-0.015 mg/24 hr ring See Rx Instructions .ROUTE .COMPLEX Rx Instructions: vag ring vaginally lisinopril 5 mg tablet glipizide 5 mg tablet 5 mg PO DAILY etonogestrel-ethinyl estradiol [EluRyng] 0.12-0.015 mg/24 hr ring vaginal lisinopril 5 mg tablet 5 mg PO DAILY Qty: 90 2RF atorvastatin 10 mg tablet 10 mg PO DAILY Qty: 90 2RF Trelegy Ellipta 100-62.5-25 mcg blister with device 1 inh inhalation DAILY albuterol sulfate [Ventolin HFA] 90 mcg/actuation HFA aerosol inhaler 1 puff inhalation Q4H PRN Trelegy Ellipta 100-62.5-25 mcg blister with device 1 inh inhalation DAILY Qty: 60 5RF Rx Instructions: Rinse mouth and spit after each use ondansetron 4 mg tablet,disintegrating PO DAILY citalopram 40 mg tablet 40 mg PO HS albuterol sulfate 90 mcg/actuation HFA aerosol inhaler 2 - 4 puff INHALATION Q4-6H PRN (Reason: Shortness Of Breath Or Wheezing) ciprofloxacin HCl [Cipro] 500 mg tablet 500 mg PO Q12H 7 Days Qty: 14 0RF metronidazole 500 mg tablet 500 mg PO Q8H 7 Days Qty: 21 0RF ondansetron 4 mg tablet,disintegrating 4 mg PO Q8H PRN (Reason: nausea and vomiting) Qty: 20 0RF citalopram 40 mg tablet 40 mg PO DAILY Qty: 90 1RF Follow-up/Referrals: Christina Velasco, PAC [Primary Care Provider, Family Practice] - 1 Week
[2025-01-18 14:19] VITALS: BP 145/87; PULSE 74; RESP 15; O2SAT 98
== END 2025-01-18 14:20 | disposition home or self-care (01) ==
PROVIDERS: Emergency Provider Emergency Medicine; PCP Physician Assistant Medical
DX: L03.116 Cellulitis of left lower limb (principal); L03.115 Cellulitis of right lower limb
CPT/HCPCS: 36415; 80053; 85025; 99283

== ENCOUNTER 2025-02-03 16:49 | Emergency (ER) | payer OTHER, SELFPAY ==
[2025-02-03 16:56] VITALS: BP 131/84; PULSE 94; RESP 16; TEMP 36.6; O2SAT 98
--- NOTE | 2025-02-03 17:28 | ED.URI ---
HPI - URI/Sore Throat General Chief Complaint: Upper Respiratory Infection Stated Complaint: sore throat Time Seen by Provider: 02/03/25 17:23 Source: patient and RN notes reviewed Mode of arrival: ambulatory Limitations: no limitations History of Present Illness HPI Narrative: 39-year-old female patient with history of type 2 diabetes and asthma, presents today with complaints of sore throat, nasal congestion that started yesterday, worse today. Denies shortness of breath, fever, difficulty swallowing. She took some Tylenol with mild relief. Pain increases with swallowing. Currently rates her pain 3/10. Related Data Home Medications ?Medication ?Instructions ?Recorded ?Confirmed ?Last Taken ?Type albuterol sulfate 90 mcg/actuation 2 - 4 puff inhalation Q4-6H PRN 12/20/22 01/28/25 Unknown History aerosol inhaler Shortness Of Breath Or Wheezing citalopram 40 mg tablet 40 mg PO HS 12/20/22 01/28/25 Unknown History etonogestrel 0.12 mg-ethinyl See Rx Instructions .Route .COMPLEX 06/26/23 01/28/25 Unknown History estradiol 0.015 mg/24 hr vaginal ring (NuvaRing) glipizide 5 mg tablet 5 mg PO DAILY 08/26/24 01/28/25 Unknown History albuterol sulfate 90 mcg/actuation 1 puff inhalation Q4H PRN 08/31/24 01/28/25 Unknown History aerosol inhaler (Ventolin HFA) etonogestrel 0.12 mg-ethinyl vag ring vaginal 08/31/24 01/28/25 Unknown History estradiol 0.015 mg/24 hr vaginal ring (EluRyng) fluticasone fur. 100 mcg-umeclid 1 inh inhalation DAILY 08/31/24 01/28/25 Unknown History 62.5 mcg-vilant 25 mcg inhalat.powder (Trelegy Ellipta) lisinopril 5 mg tablet mg 10/22/24 01/28/25 Unknown History Allergies Allergy/AdvReac Type Severity Reaction Status Date / Time ciprofloxacin (From Cipro) Allergy Mild rash Verified 02/03/25 16:51 nickel Allergy Mild Rash Verified 02/03/25 16:51 tiotropium (From Spiriva Allergy Mild Hives Verified 02/03/25 16:51 with HandiHaler) poppyseed oil AdvReac Intermediate Nausea and Verified 02/03/25 16:51 Vomiting PMFSH Past Medical History Medical History Type 2 diabetes mellitus without complications Asthma Allergies Asthma Type 2 diabetes mellitus Depression with anxiety Surgical History Surgical History History of D&C History of cholecystectomy History of cholecystectomy (01/2017) History of dilation and curettage (05/2018) Family History Family History Other Diabetes mellitus Family history non-contributory Hypertension Social History Social History Social History: Surrogate medical decision maker: Ramy García, spouse. Code status: Full code. Smoking status: Never smoker Second hand tobacco smoke exposure: No Alcohol intake: never Substance use: never Substance use type: does not use Do You Feel Safe in your Home?: Yes Lack of Transportation: No Lack of Food: Never True Current Housing: I Have Housing Concerned About Future Housing: No Difficulty Paying Gas/Electric Bills: No Difficulty Paying for Meds: No Currently Unemployed: No Education: Associate Degree Difficulty w/ Childcare or Family Care: No Living arrangements: with family Additional living arrangements comments: Lives with spouse and 2 young children ages 4 and 7. Additional occupation/education comments: Works at a [employer]. Spiritual care concerns: No Comments At time of signature, I have reviewed and agree with nursing past medical, surgical, social and family history unless otherwise noted. Please see nursing chart for further information. There is no relevant family history pertinent to the presenting complaint Exam Narrative: GENERAL: Well-appearing, well-nourished, and in no acute distress. HEAD: Normocephalic, atraumatic. EYES: EOMI. No redness or drainage. Conjunctivae normal. ENT: Mucous membranes pink and moist. Nares clear. No rhinorrhea. TMs normal bilaterally. Throat erythematous and mildly edematous without exudate. Uvula midline. NECK: Normal AROM. Supple. Bilateral anterior cervical chain lymphadenopathy. CHEST: No respiratory distress. Clear to auscultation. HEART: Regular rate and rhythm. No murmur appreciated. EXTREMITIES: Normal range of motion. No edema. SKIN: Warm, dry, no rash. Capillary refill normal. Normal skin turgor. NEURO: No focal deficits. Alert and oriented x3. Gait steady. PSYCH: Normal affect. No signs of depression or anxiety. Course Course Level of Care: Express Care Visit Vital Signs Vital signs: Vital Signs Temperature 97.9 F 02/03/25 16:56 Pulse Rate 94 02/03/25 16:56 Respiratory Rate 16 02/03/25 16:56 Blood Pressure 131/84 02/03/25 16:56 Pulse Oximetry 98 02/03/25 16:56 Oxygen Delivery Room Air 02/03/25 16:56 Temperature 97.9 F 02/03/25 16:56 Pulse Rate 94 02/03/25 16:56 Respiratory Rate 16 02/03/25 16:56 Blood Pressure 131/84 02/03/25 16:56 Pulse Oximetry 98 02/03/25 16:56 Oxygen Delivery Room Air 02/03/25 16:56 Reviewed MDM - URI/Sore Throat MDM Narrative Medical decision making narrative: 39-year-old female patient with history of type 2 diabetes and asthma, presents today with complaints of sore throat, nasal congestion that started yesterday, worse today. She has tried Tylenol with mild relief. Exam shows erythematous and edematous throat with anterior cervical chain lymphadenopathy bilaterally. Rapid strep positive. Prescription for amoxicillin sent to pharmacy. Vital signs stable. Anticipatory guidance and ED precautions given. Differential Diagnosis Differential diagnosis: Likely upper respiratory infection, otitis media, viral infection, pharyngitis and other (Strep throat) Lab Data Attestation: I reviewed the patient's lab results. Lab results narrative: Rapid strep positive Critical Care Time Critical Care Time Critical Care Time: No Discharge Plan Discharge Clinical Impression: Strep throat Patient Disposition: Home Condition: Stable Instructions: Antibiotic Form, Strep Throat (DC) Additional Instructions: You have tested positive for strep throat. Please take the amoxicillin as prescribed until gone. You will be contagious for 24 hours after starting the medication. Take Tylenol or Ibuprofen for pain or fever, if able. Rest and stay hydrated. Follow up with your PCP in 3 days if symptoms are not improving. Go to the ER immediately if you develop worsening symptoms such as shortness of breath, difficulty swallowing. Your blood pressure was elevated above 120/80 today at Urgent Care. This puts you above the threshold for follow up. Please schedule a followup visit with your personal physician as soon as possible, for further evaluation and treatment. Even blood pressure exceeding 120/80 may indicate pre-hypertension. Patient Language: Arabic Prescriptions: New amoxicillin 875 mg tablet 875 mg PO Q12H 10 Days Qty: 20 0RF No Action etonogestrel-ethinyl estradiol [NuvaRing] 0.12-0.015 mg/24 hr ring See Rx Instructions .ROUTE .COMPLEX Rx Instructions: vag ring vaginally lisinopril 5 mg tablet glipizide 5 mg tablet 5 mg PO DAILY etonogestrel-ethinyl estradiol [EluRyng] 0.12-0.015 mg/24 hr ring vaginal atorvastatin 10 mg tablet 10 mg PO DAILY Qty: 90 2RF Trelegy Ellipta 100-62.5-25 mcg blister with device 1 inh inhalation DAILY albuterol sulfate [Ventolin HFA] 90 mcg/actuation HFA aerosol inhaler 1 puff inhalation Q4H PRN Trelegy Ellipta 100-62.5-25 mcg blister with device 1 inh inhalation DAILY Qty: 60 5RF Rx Instructions: Rinse mouth and spit after each use citalopram 40 mg tablet 40 mg PO HS albuterol sulfate 90 mcg/actuation HFA aerosol inhaler 2 - 4 puff INHALATION Q4-6H PRN (Reason: Shortness Of Breath Or Wheezing) Follow-up/Referrals: Ailyn Myers NP [Primary Care Provider, Family Practice] Stand Alone Forms: Work/School Release IP Time of Disposition: 17:32
[2025-02-03 17:30] LABS: EDSTREPNEGPOS1 Positive (Negative)
== END 2025-02-03 17:41 | disposition home or self-care (01) ==
PROVIDERS: Emergency Provider Nurse Practitioner
DX: J02.0 Streptococcal pharyngitis (principal); E11.9 Type 2 diabetes mellitus without complications; Z79.84 Long term (current) use of oral hypoglycemic drugs; J45.909 Unspecified asthma, uncomplicated; F41.8 Other specified anxiety disorders
CPT/HCPCS: 87880; 99213; G0463

== ENCOUNTER 2025-03-02 14:31 | Outpatient (CLI) | payer OTHER, SELFPAY ==
--- NOTE | ~2025-03-02 | MR_ITS ---
EXAMINATION: MR abdomen wo/w con DATE: 03/02/2025 15:40 INDICATION: Liver mass. TECHNIQUE: Magnetic resonance imaging (MRI) of the abdomen was performed without and with 20 mL MultiHance intravenous contrast. COMPARISON: CT abdomen and pelvis 12/07/2024, chest CT 12/20/22 FINDINGS: There is diffuse hepatic steatosis. There is a 2.0 cm hypoenhancing mass in segment V of the liver. There are multiple hyperenhancing liver masses measuring up to 9 mm. The gallbladder is absent. The spleen, pancreas, adrenal glands, and kidneys are normal. There are no dilated loops of bowel. There are no pathologically enlarged lymph nodes. There is no ascites. IMPRESSION: 1. 2.0 cm liver mass, stable from 12/20/2022, likely benign. 2. Multiple hyperenhancing liver masses measuring up to 9 mm. These findings are most likely hemangiomas and/or focal nodular hyperplasia. 3. Diffuse hepatic steatosis. Reviewed, dictated and finalized at location E. 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 2.0 cm liver mass, stable from 12/20/2022, likely benign. 2. Multiple hyperenhancing liver masses measuring up to 9 mm. These findings ar e most likely hemangiomas and/or focal nodular hyperplasia. 3. Diffuse hepatic steatosis.
--- OUTSIDE RECORDS SUMMARY | 2025-03-02 16:08 | XMS_ITS | Clinical Summary ---
Author Organization [employer] [address] [place] [address] [place] [address] STEPHEN Castellano [address] Care Team Providers Care Founder And Chief Technical Officer Name Role Phone Unavailable Primary Care Provider [...] migh t be different from the original. 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 on file Not on file Not on file Last Filed Vital Signs Vital Sign Reading Time Taken Comments Blood Pressure 122/78 12/23/2020 8:22 AM CDT Pulse 80 06/10/2018 3:50 PM DRY PLASTERER Temperature 37.1 C (98.8 F) 06/10/2018 3:50 PM DRY PLASTERER Respiratory Rate 14 06/10/2018 3:50 PM DRY PLASTERER Oxygen Saturation 98% 06/10/2018 3:50 PM DRY PLASTERER Inhaled Oxygen Concentration - - Weight 130.2 [...] CDT) CASE REPORT Gynecologic Cytology Report Case: [id number] Authorizing Provider: Marie Gamez, Collected: 10/13/2019 03:24 PM WHARFINGER CHIEF Ordering Location: [facility] SENIOR CLINICAL DATA MANAGER - 714 Received: 10/14/2019 07:04 AM [employer] First Screen: Nadya Henao Pathologist: Mayuri Cole MD Specimen: LB PAP TP AND HPV PROT, Endocervix 10/30/2019 8:34 AM CDT [facility] Folding Machine Setter Specimen Adequacy Satisfactory for evaluation, endocervical/trans formation zone component present 10/30/2019 8:34 AM CDT [facility] Folding Machine Setter Interpretation Negative for intraepithelial lesion or malignancy 10/30/2019 8:34 AM CDT [facility] Verified by Mayuri Cole MD on 10/30/2019 at 0834 CDT Folding Machine Setter Other Findings Reactive changes associated with inflammation/repai r Moderate inflammation noted 10/30/2019 8:34 AM CDT [facility] Folding Machine Setter Prev Pap Result Last pap: a few years ago Denies Hx of abnormal pap 10/30/2019 8:34 AM CDT [facility] GynLMP 10/05/2019 10/30/2019 8:34 AM CDT [facility] Folding Machine Setter Educational Note 10/30/2019 8:34 AM CDT [facility] Comment:The Pap test is a sc [...] information. EMBEDDED IMAGE 10/30/2019 8:34 AM CDT [facility] Genital SWAB OF ENDOCERVIX / Unknown Collection / Unknown 10/13/2019 3:24 PM CDT 10/14/2019 7:04 AM CDT Marie Gamez NP PATHOLOGY/CYTOLOGY ORD ERABLES Final Result [facility] CLIA# [id number] [place] [address] * (ABNORMAL) HEMOGLOBIN A1C (12/18/2018 10:38 AM CDT) HEMOGLOBIN A1C 6.0(H) <=5.6 % 12/19/2018 12:11 PM CDT [facility] EST. AVG GLUCOSE, A1C 126 mg/dL 12/19/2018 12:11 PM CDT [facility] Blood 12/18/2018 10:3 8 AM CDT 12/19/2018 11:42 AM CDT Narrative [facility] - 12/19/2018 12:11 PM CDT HGB A1C INTERPRETATION NORMAL: <5.7% PRE-DIABETES: 5.7 - 6.4% DIABETES: 6.5% OR GREATER Richi Payne DO CHEMISTRY ORDERABLES Final Res ult [facility] CLIA# [id number] [place] [address] from Last 3 Months or Most Recently Relevant to Health Maintenance Insurance [address] [place] [address] RX MEDIMPACT Member Subscriber Plan / Payer [...] GUERIN PLANS (INTERNAL) [facility] Internal Plans MEDICAID [place] AET Advance Directives For more information, please contact: [phone] * Full Code (Latest Code Status on File) Date Activated Date Inactivated Comments 05/01/2018 6:04 AM 05/01/2018 9:01 AM
--- OUTSIDE RECORDS SUMMARY | 2025-03-02 16:08 | XMS_ITS | Encounter Summary ---
Author Organization [facility] Address [address] [place] [address] Care Team Providers Care Equine Vet Name Role Phone Akira Reed DO Primary Care Provider [phone] Reason for Visit * Reason Comments Medication Refill Encounter Details Date Type Department Care Team (Late st Contact Info) Description 05/28/2019 Refill [facility] COPYRIGHT EXPERT - [address] [facility] [address] [place] [address] Estefani Bowers MD [address] [facility] [address] [address] control counseling Social History Tobacco [...] 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
--- OUTSIDE RECORDS SUMMARY | 2025-03-02 16:08 | XMS_ITS | Data Portability ---
Author Organization [facility] Address [address] [place] [address] [place] [address] Care Team Providers Care Department Sales Manager Name Role Phone JERI MENDENHALL Primary Care Provider Assessment Encounter Date Assessment Date Assessment LastModified by Organization Details LastModified Time 08/24/2022 08/24/2022 Annual gynecological exam performed. Patient will come back in a year unless there are new symptoms. Not available 08/24/2022 10:52:46 10/21/2024 10/21/2024 Annual gynecological exam performed. Patient will come back in a year unless there are new symptoms. [email or web address] Not available 10/21/2024 09:05:16 Plan of Treatment Reminders Order Date Submit Date Provider Last Modified By Organization Details Last Modified Time Details Appointments None recorded . Lab pap, IG + HR HPV - HPV regardle ss but if HPV is positive need subtypin g 16,18/45 2024 025 [facility] (Lab), [address], [place], [address], 5 19:06:23 testoste jhon, total, serum 2022 023 [employer] [facility], [address], [place], [address], 4 10:32:18 lh + FSH, serum 2022 023 [employer] [facility], [address], [place], [address], 4 01:58:03 unlisted lab - anti-mul lerian hormone (amh), female 2022 023 [facility] [place] [facility], [address], [address], [place], [address], 4 11:21:47 vitamin D, 25-hydro xy, total, serum 2022 023 [facility], [address], [place] [place], [place], [address], 3 17:57:21 HbA1c (hemoglo bin A1c), blood 2022 023 [facility], [address], [place], [place], [address], 3 17:57:22 CMP, serum or plasma 2022 023 [place] [facility], [address], [place], [place], [address], 3 18:21:12 lipid panel, blood 2022 023 [facility], [address], [place], [place], [address], 3 17:57:22 CBC w/ auto diff 2022 023 [place] [facility], [address], [place], [address], 3 04:21:42 TSH, serum or plasma 2022 023 [facility], [address], [place], [address], 3 17:57:22 Referral None recorded . Procedures None recorded . Surgeries None recorded . Imaging None recorded . Medication Orders estradio l 0.01% (0.1 mg/gram) vaginal cream 2024 025 [id number], [address], [place], [address], 5 09:49:52 NuvaRing 0.12 mg-0.015 mg/24 hr vaginal 2024 025 [id number], [address] [place], [address], 5 09:49:52 Diflucan 150 mg tablet 2023 024 [id number], [address] [place], [address], 5 09:04:11 clotrima zole-bet amethaso ne 1 %-0.05 % topical cream 2023 025 [id number], [address] [place], [address], 5 09:12:01 Flagyl 500 mg tablet 2023 024 [email or web address] [id number], [address] [place], [address], 5 09:03:58 NuvaRing 0.12 mg-0.015 mg/24 hr vaginal 2022 023 [facility] #[id number], [address] [place], [address], 3 12:36:21 Diflucan 200 mg tablet [email or web address] #[id number], [address] [place], [address], 11:09:33 Patient TargetsNo targets recorded. Patient InstructionsNo instructions recorded. Reason for Referral None Reported. Results Created Date Observation Date Name Description Value Unit Range Abnormal Flag Note LastModifiedBy Organization Detail LastModifiedTime 08/25/19 23 08/24/2022 IMAGE GUIDE D PAP AND HPV REGAR DLESS image guided Pap, HPV regardless of Pap result SEE RESULT S BELOW CASE REPOR T: Cytol ogy Gynec ologi fannie Repor t Case: [id number] Autho jada prisca Provi corie: Christian fuentes , Chana Snyder cted: 08/24 1432 GEAR GRINDER Order ing Locat ion: [place] [facility] Recei vineet: 08/25 0253 First Scree n: Talita Hernandez ica Rescr een: Sima Louis Speci men: Scree claire Pap - Image d, Cervi x STATE MENT OF ADEQU ACY: Satis facto ry for evalu ation Trans forma tion zone compo nent absen t The absen ce of an endoc ervic al compo nent was confi rmed by an addit ional scree ner. FINAL DIAGN OSIS: Negat rachid for Intra epith elial Lesio n or Jet brooks (NIL) . Funga l organ isms morph ologi josie consi stent with Julissa da spp. Elect bob perrin horacio d by Sima Louis on 023 at 8:25 PM ----- ----- ----- ----- ----- ----- ----- ----- ----- ----- ----- ----- ----- ----- ----- ----- ----- ---- HPV RESUL TS: HPV mRNA E6/E7 : No HPV mRNA Detec brodie NOTE: This high risk HPV mRNA assay detec ts fourt een high- risk HPV types (16, 18, 31, 33, 35, 39, 45, 51, 52, 56, 58, 59, 66, 68) witho ut diffe renti ation . COMME NT: This speci men was revie wed by a Cytot echno logis t and/o r Patho logis t (as indic ated in this repor t) after evalu ation using the Thinp rep Imagi ng Syste m. CLINI FANNIE INFOR MATIO N: Menst rual Statu s: LMP (if appli cable ): Clini fannie Histo ry/Pr eviou s Pap: Type of Neopl jesus alberto (if appli cable ): Signi fican t Clini fannie Findi ngs: Other Histo ry: Hormo kevin (if appli cable ): PAP EDUCA MARIA ELENA L NOTE: The Pap Test is a scree claire test with an inher ent false negat rachid rate. Liqui d-bas ed sampl ing may decre ase, but will not elimi zoe, false negat rachid resul ts. A negat rachid resul t does not precl ude the prese nce and/o r devel opmen t of disea se, since the prese nce of abnor mal cells in the sampl e depen ds on the locat ion of the lesio n and sampl ing techn ique. Gisela nued regul ar scree claire is the best metho d of cance r preve ntion . If repor brodie cytol ogic findi ng do not corre late with physi fannie and/o r histo rical findi ngs, furth er inves tigat ion is recom néstor d, as clini josie bruce nted. Not Available [facility] (Lab) [address], [place], [address], 08/28/2022 21:27:54 10/22/19 25 10/21/2024 IMAGE GUIDE D PAP AND HPV REGAR DLESS image guided Pap, HPV regardless of Pap result SEE RESULT S BELOW CASE REPOR T: Cytol ogy Gynec ologi fannie Repor t Case: [id number] Autho jada cope Provi corie: Dermo dy, Carmelita , ANP, STICKER OPERATOR Colle cted: 10/21 1052 Order ing Locat ion: [place] [facility] [place] Recei vineet: 10/22 0203 First Scree n: Sherm an, Sima Speci men: Scree claire Pap - Image d, Cervi x STATE MENT OF ADEQU ACY: Satis facto ry for evalu ation Trans forma tion zone compo nent absen t ----- ----- ----- ----- ----- ----- ----- ----- ----- ----- ----- ----- ----- ----- ----- ----- ----- ---- FINAL DIAGN OSIS: Negat rachid for Intra epith elial Yennifer walsh or Jet brooks (NIL) . Elect bob perrin horacio d by Sima Louis on 2024 at 1609 CDT ----- ----- ----- ----- ----- ----- ----- ----- ----- ----- ----- ----- ----- ----- ----- ----- ----- ---- HPV RESUL TS: HPV mRNA E6/E7 : No HPV mRNA Detec brodie NOTE: This high risk HPV mRNA assay detec ts fourt een high- risk HPV types (16, 18, 31, 33, 35, 39, 45, 51, 52, 56, 58, 59, 66, 68) witho ut diffe renti ation . COMME NT: This speci men was revie wed by a Cytot echno logis t and/o r Patho logis t (as indic ated in this repor t) after evalu ation using the Thinp rep Imagi ng Syste m. CLINI FANNIE INFOR MATIO N: Menst rual Statu s: LMP (if appli cable ): Clini fannie Histo ry/Pr eviou s Pap: Type of Neopl jesus alberto (if appli cable ): Signi fican t Clini fannie Findi ngs: Other Histo ry: Hormo kevin (if appli cable ): PAP EDUCA MARIA ELENA L NOTE: The Pap Test is a scree claire test with an inher ent false negat rachid rate. Liqui d-bas ed sampl ing may decre ase, but will not elimi zoe, false negat rachid resul ts. A negat rachid resul t does not precl ude the prese nce and/o r devel opmen t of disea se, since the prese nce of abnor mal cells in the sampl e depen ds on the locat ion of the lesio n and sampl ing techn ique. Gisela nued regul ar scree claire is the best metho d of cance r preve ntion . If repor brodie cytol ogic findi ng do not corre late with physi fannie and/o r histo rical findi ngs, furth er inves tigat ion is recom néstor d, as clini josie bruce nted. Not Available [facility] (Lab) [address], [place], [address], 10/22/2024 19:06:23 Result Notes None recorded. Problems Name Problem SNOMED Code Status Onset Date Resolution Date Notes Provider Name and Address Organization Details Recorded Time Severe obesity [id number] Active 2022 Caprice Ivory, KEITH- [address], [place], [address], [facility] 11:53:30 Problem Notes None recorded. Procedures Surgical History Date Name Laterality Status Provider Name and Address Organization Details Recorded Time 08/25/19 23 Date of Last Pap Smear completed [facility] 11/15/2023 11:15:16 05/17/19 19 Dilation and Curettage completed [facility] 08/24/2022 10:54:20 02/19/20 17 Cholecystectomy completed [facility] 08/24/2022 10:54:20 Imaging Results None recorded. Procedure Notes None recorded. Medical Equipment None Reported. Allergies Allergen ID Allergen Name Allergen Category Reaction Reaction Severity Criticality Documentation Date Start Date Code Code System Note Provider Name and Address Organization Details Recorded Time amoxicill in medicatio n rash severe Not available 08/24/2022 723 RxNorm Keira Cruz arlene, [facility] 3 10:53:52 61532 opium poppy Not available vomiting moderate Not available 08/24/2022 Caprice small, [facility]- [address], [place], [address] , [facility] 3 11:02:25 72194 nickel environme nt rash moderate Not available 08/24/2022 11920 29 RxNorm Keira Anthony null, [facility] 3 10:53:52 12149 Spiriva medicatio n hives moderate Not available 10/21/2024 14150 5 RxNorm Marilee Bryant null, [facility] 5 09:03:45 Medications Name Sig Start Date Stop Date Status Note LastModified by Organization Details LastModified Time metformin 500 mg tablet TAKE 1 TABLET BY MOUTH EVERY EVENING AFTER A MEAL 11/14 completed Not Available Not Available Not Available prednisone 10 mg tablet TAKE 4 TABS DAILY X4 DAYS, 3 TABS DAILY X3 DAYS, 2 TABS DAILY X3 DAYS, 1 TAB DAILY X3 DAYS 10/21 completed Not Available Not Available Not Available ipratropium 0.5 mg-albutero l 3 mg (2.5 mg base)/3 mL nebulizatio n soln USE 1 VIAL VIA NEBULIZER 4 TIMES A DAY 04/26 completed Not Available Not Available Not Available clindamycin HCl 300 mg capsule TAKE 1 CAPSULE BY MOUTH THREE TIMES A DAY 04/26 completed Not Available Not Available Not Available citalopram 40 mg tablet TAKE 1 TABLET BY MOUTH EVERY DAY active Not Available Not Available No t Available atorvastati n 10 mg tablet TAKE 1 TABLET BY MOUTH EVERY DAY active Not Available Not Available No t Available azithromyci n 250 mg tablet TAKE 2 TABLETS BY MOUTH TODAY, THEN TAKE 1 TABLET DAILY FOR 4 DAYS 08/24 completed Not Available Not Available Not Available fluconazole 150 mg tablet TAKE 1 TABLET BY MOUTH AT END OF ANTIBIOTI CS AND 1 TABLET 72 HOURS LATER 10/21 completed Not Available Not Available Not Available benzonatate 200 mg capsule TAKE 1 CAPSULE BY MOUTH THREE TIMES A DAY 04/26 completed Not Available Not Available Not Available fluconazole 200 mg tablet TAKE 1 TABLET BY MOUTH EVERY OTHER DAY 04/26 completed Not Available Not Available Not Available prednisone 20 mg tablet TAKE 1 TABLET BY MOUTH DAILY AT 8AM 04/26 completed Not Available Not Available Not Available metronidazo le 500 mg tablet TAKE 1 TABLET BY MOUTH EVERY 8 HOURS 10/21 completed Not Available Not Available Not Available Adderall XR 20 mg capsule,ext ended release TAKE 1 CAPSULE BY MOUTH EVERY DAY IN THE MORNING 08/24 completed Not Available Not Available Not Available dicyclomine 20 mg tablet TAKE 1 TABLET BY MOUTH 3 TIMES A DAY NEEDED FOR ABDOMINAL PAIN 11/14 completed Not Available Not Available Not Available amoxicillin 250 mg/5 mL oral suspension TAKE 5 ML BY MOUTH EVERY 8 HOURS (FOR DRUG DOSE CHALLENGE IN OFFICE) 11/14 completed Not Available Not Available Not Available benzonatate 100 mg capsule TAKE 1 CAPSULE BY MOUTH THREE TIMES A DAY NEEDED FOR COUGH 04/26 completed Not Available Not Available Not Available cephalexin 500 mg capsule TAKE 1 CAPSULE BY MOUTH EVERY 12 HOURS 08/24 completed Not Available Not Available Not Available oseltamivir 75 mg capsule 08/24 completed Not Available Not Available Not Available clotrimazol e-betametha sone 1 %-0.05 % topical cream APPLY ONTO THE AFFECTED/ SURROUNDI NG AREA(S) ON THE SKIN TWICE DAILY IN THE MORNING/E VENING X2 WEEKS 10/21 completed Not Available Not Available Not Available polymyxin B sulfate 10,000 unit-trimet hoprim 1 mg/mL eye drops PLACE 1DROP INTO LEFT EYE EVERY 3 HOURS FOR 7 DAYS WHILE AWAKE DO NOT EXCEED 6 DOSES IN 24 HOURS active Not Available Not Available No t Available montelukast 10 mg tablet TAKE 1 TABLET BY MOUTH EVERY DAY IN THE EVENING 04/26 completed Not Available Not Available Not Available codeine 10 mg-guaifene sin 100 mg/5 mL oral liquid TAKE 10 MLS BY MOUTH EVERY 6 HOURS NEEDED 04/26 completed Not Available Not Available Not Available lisinopril 5 mg tablet TAKE 1 TABLET BY MOUTH EVERY DAY active Not Available Not Available No t Available mometasone 0.1 % topical ointment APPLY THIN COAT TO AFFECTED AREA EVERY DAY 10/21 completed Not Available Not Available Not Available estradiol 0.01% (0.1 mg/gram) vaginal cream INSERT 1 GRAM VAGINALLY EVERY NIGHT X 2 WEEKS, THEN TWICE WEEKLY active Not Available Not Available No t Available levofloxaci n 750 mg tablet TAKE 1 TABLET BY MOUTH DAILY FOR PNEUMONIA 04/26 completed Not Available Not Available Not Available methylpredn isolone 4 mg tablets in a dose pack TAKE 6 TABLETS ON DAY 1 DIRECTED ON PACKAGE AND DECREASE BY 1 TAB EACH DAY FOR A TOTAL OF 6 DAYS active Not Available Not Available No t Available albuterol sulfate HFA 90 mcg/actuati on aerosol inhaler INHALE 2-4 PUFFS EVERY 4-6 HOURS NEEDED FOR SHORTNESS OF BREATH active Not Available Not Available No t Available ondansetron 4 mg disintegrat ing tablet LET 1 TABLET DISSOLVE BY MOUTH 3 TIMES DAILY NEEDED FOR NAUSEA AND VOMITING 11/14 completed Not Available Not Available Not Available glipizide 5 mg tablet TAKE 1 TABLET BY MOUTH TWICE A DAY BEFORE MEALS active Not Available Not Available No t Available buspirone 15 mg tablet Take 1 tablet every day by oral route. 04/26 completed Not Available Not Available Not Available NuvaRing 0.12 mg-0.015 mg/24 hr vaginal Insert 1 vaginal ring(s) every month by vaginal route as directed for 90 days. active Not Available Not Available No t Available bupropion HCl XL 150 mg 24 hr tablet, extended release TAKE 1 TABLET BY MOUTH EVERY DAY IN THE MORNING 08/24 completed Not Available Not Available Not Available cholecalcif yumiko (vitamin D3) 50 mcg (2,000 unit) capsule TAKE 1 CAPSULE BY MOUTH EVERY DAY 04/26 completed Not Available Not Available Not Available Mucus Relief ER 600 mg tablet, extended release TAKE 1 TABLET BY MOUTH EVERY 12 HOURS 04/26 completed Not Available Not Available Not Available clindamycin 1.2 %-benzoyl peroxide 2.5 % topical gel with pump APPLY A PEA-SIZED AMOUNT BY TOPICAL ROUTE ONCE DAILY TO COVER AREAS OF FACE WITH THIN LAYER 11/14 completed Not Available Not Available Not Available Mounjaro 2.5 mg/0.5 mL subcutaneou s pen injector 11/14 completed Not Available Not Available Not Available Ozempic 0.25 mg or 0.5 mg (2 mg/3 mL) subcutaneou s pen injector INJECT (0.25MG) SUBCUTANE OUSLY ONE TIME PER WEEK ON THE SAME DAY OF EACH WEEK 11/14 completed Not Available Not Available Not Available Vitals Date Recorded Systolic And Diastolic Provider Name and Address Organization Details Last Updated DateTime 08/24/2022 124/80 mm[Hg] Caprice Ivory, [facility]- [address], [place], [address], [facility] 08/24/2022 11:54:23 Date Recorded Body height Body mass index (BMI) Body weight Provider Name and Address Organization Details Last Updated DateTime 08/24/2022 162.56 cm 48.6 kg/m2 969153.64 g [facility] 08/24/2022 10:53:37 Date Recorded Body height Body mass index (BMI) Body weight Systolic And Diastolic Provider Name and Address Organization Details Last Updated DateTime 10/19/2022 163.2 cm 47.5 kg/m2 435737.55 g 128/86 mm[Hg] [facility] 10/19/2022 11:18:53 Date Recorded Body height Body mass index (BMI) Body weight Systolic And Diastolic Provider Name and Address Organization Details Last Updated DateTime 10/21/2024 163.2 cm 47.9 kg/m2 023664.89 g 125/83 mm[Hg] Marilee Annette [facility] 10/21/2024 09:11:48 Date Recorded Body height Body mass index (BMI) Body weight Systolic And Diastolic Provider Name and Address Organization Details Last Updated DateTime 11/15/2023 163.2 cm 46.8 kg/m2 107417.9 g 136/73 mm[Hg] Keira [facility] 11/15/2023 11:13:49 Date Recorded Body height Body mass index (BMI) Body weight Systolic And Diastolic Provider Name and Address Organization Details Last Updated DateTime 04/26/2023 163.2 cm 48 kg/m2 260325.05 g 128/83 mm[Hg] Rosalia Veliz [facility] 04/26/2023 11:20:25 Social History Question Answer Notes LastModified by Organizat ion Details LastModified Time Tobacco Smoking Status Never Smoker Keira Anthony jacobs, [facility] 08/24/2022 10:57:31 Do You Have An Advance Directive? No Information n ot available 08/24/2022 How Many Years Have You Consumed Alcohol? 0 Information not available 08/24/2022 Are You Blind Or Do You Have Difficulty Seeing? No Information n ot available 08/24/2022 What Is Your Level Of Caffeine Consumption? Moderate [email or web address] Information not available 10/21/2024 How Much Tobacco Do You Chew? None Information not available 08/24/2022 In The 14 Days Before Symptom Onset, Have You Had Close Contact With A Laboratory-confirm ed COVID-19 While That Case Was Ill? No Information n ot available 08/24/2022 In The 14 Days Before Symptom Onset, Have You Had Close Contact With A Person Who Is Under Investigation For COVID-19 While That Person Was Ill? No Information not available 08/24/2022 Have You Been To An Area Known To Be High Risk For COVID-19? No Information not available 08/24/2022 Are You Deaf Or Do You Have Serious Difficulty Hearing? No Information not available 08/24/2022 What Type Of Diet Are You Following? REGULAR Information n ot available 08/24/2022 What Is The Highest Grade Or Level Of School You Have Completed Or The Highest Degree You Have Received? [id number] Information not available 08/24/2022 Are There Any Guns Present In Your Home? No [email or web address] Information not available 10/21/2024 Do You Use Protection During Sex? No Information not available 08/24/2022 Do You Use Your Seat Belt Or Car Seat Routinely? Yes Information not available 08/24/2022 Do You Have Smoke And Carbon Monoxide Detectors In Your Home? Yes Information not available 08/24/2022 At What Age Did You Start Smoking Tobacco? 0 Information not available 08/24/2022 How Much Tobacco Do You Smoke? No Information not available 08/24/2022 Do You Use Sunscreen Routinely? No Information not available 08/24/2022 How Many Years Have You Smoked Tobacco? 0 Information not available 08/24/2022 Have You Used IV Drugs? No Information not available 08/24/2022 Sex: Female Functional Status Question Answer Note LastModified by Organizat ion Details LastModified Time Do you use any illicit or recreational drugs? No Information not available 08/24/2022 What is your level of alcohol consumption? None Information not available 08/24/2022 Are you able to walk independently without assistance or assistive devices? YESWOREST Information not available 08/24/2022 What is your occupation? [employer] Information not available 08/24/2022 What is your exercise level? None Information not available 08/24/2022 Mental Status Question Answer Note LastModified by Organization D etails LastModified Time Do you feel stressed (tense, restless, nervous, or anxious, or unable to sleep at night)? [id number] Information not available 10/21/2024 Family History Relationship Description Onset Age of this Age Resolved Age Notes LastModified by Organization Details LastModified Time Maternal Grandfather Heart disease Not available 2022 10:53:56 Mother Diabetes mellitus Not available 2022 10:56:49 Mother Hypertensive disorder Not available 2022 10:57:04 Mother Disorder of thyroid gland Not available 2022 10:57:17 Father Diabetes mellitus Not available 2022 10:56:49 Father Hypertensive disorder Not available 2022 10:57:04 Medical History Condition Response Anxiety Disorder Y Allergies (Food, seasonal, environmental ) Y Other Y High Cholesterol Y Depression/ depression Y Gynecological History Statement/Question Response Abnormal Pap Y Flow Moderate Date of LMP 09/30/2024 On BCP's at Conception? N STIs/STDs N Was last menstrual period normal N HPV Vaccine N Duration of Flow (days) 7 11 Current Control Method Vaginal Rin g Age at First Child 1 Are cycles usually normal Y Frequency of Cycle (Q days) 32 Sexually Active? Y None Menses Monthly Y Age of first menstrual cycle 12 Date of Last Pap Smear 08/24/2022 Sexual Problems? N LMP Approximate Desired Control Method Vaginal Rin g N Obstetrics History GPAL:G 1 P 0 0 1 0 Type Value Spontaneous 1 Living 0 Total 1 Past Encounters Encounter ID Performer Location Encounter Start Date Encounter Closed Date Diagnosis/Indication Diagnosis SNOMED-CT Code Diagnosis ICD10 Code Diagnosis IMO Codes Diagnosis Note [id number] Caprice Ivory [facility] [address] [address] 08/24/2022 10:33:50 08/24/2022 12:12:25 Gynecologic examination [id number] Z01.419 Take Calcium with Vitamin D 1200mg daily if not receiving in daily diet. It is strongly advised to have an annual flu shot and up can obtain at most pharmacies . If you have not had a TDap shot in the last 10 years you should obtain one as well. Discussed with patient & provided with informatio n regarding Gardisil vaccine to prevent the 4 strains for HPV that cause cervical cancer if under age 26. Encourage safe sexual practices, to use condoms and limit partners if not already in a monogamous relationsh ip. Do monthly self breast exams. Have mammogram yearly or every other year depending on family history. BRCA testing is now available for patients with strong genetic history of female cancer. If interested contact the office. Engage in daily exercise of low impact aerobic exercise 45-60 minutes 4-5 times weekly. Avoid tobacco and illicit drugs as well as using moderation with alcohol intake less than 1-2 8 oz beverages daily. This lifestyle behavior pattern will lead to less health conditions and longer life span. If BMI greater than 25 weight watchers or dietary consult advised. Patient received above instructio ns, and questions have been answered. If you have any questions please call or respond to this email. Patient was made aware of the patient portal and may obtain a paper copy of today's plan if desired. Pap/hpv sentSTD Screen declinedGe netic Screen discussedC olon Screen naDexa Screen naRoutine Labs PCP Body mass index 40+ - severely obese [id number] Z68.42 Wanting to lose weight.Fee ls needs more support to achieve this goal.Refer red to [facility] Weight-los s providers Vaginitis [id number] N76.0 Suspect yeast on examRx sent Counseled on medication R/B's, Most common side effects, & use. All questions were answered to patient satisfacti on. [id number] Vane Brady [facility] [place] [address] [address] [address] 10/19/2022 11:04:56 10/22/2022 16:28:30 Obesity [id number] E66.9 Detailed hx obtained today (see HPI)we discussed her diet. Discussed healthy choices, protein, portion sizes, limiting sugary drinks, decreasing fast foods, preparing meals at home, bringing healthy options to work with her.Discus sed decreasing portion sizes, incorporat ing more protein, eating breakfast daily, creating a log to review at next office visit.Gerald mmended telephone station installer consult for further management .Discussed exercise recommenda tions, 150 min of moderate to intense exercise per week, 2 strength training sessions per week.We discussed starting with small exercise goals and working up for there. Short walks, biking, swimming, strength exercises, etc. Highly recommend group fitness classes. Fasting labs orderedRev iewed obesity medication options. She is currently TTC. She is going to pursue telephone station installer consult and hold off on any medication at this time. -schedule meeting with telephone station installer- exercise encouraged -fasting labs ordered Time spent in visit is a total of 45 mins with at least 50% of visit consisting of counseling and review of plan of care. [id number] Caprice Ivory , [facility] [address] [address] 04/26/2023 11:12:05 04/26/2023 12:41:01 Cystic acne [id number] L70.0 N94.3 Update hormone testing and will reach out with these results Body mass index 40+ - severely obese [id number] Z68.42 hgbA1c 6.3Started metformin; but wants to lose weight.Case l get insurance informatio n on coverage of medical weight-los s management Rx options.Co ntact us with these options.Di lindenussed contrave and informatio n given to review. Reproducti ve care management [id number] Z31.9 Update fertility test; has been trying to achieve the last year and no success. Contracept ion care management [id number] Z30.9 Discussed all control options in great detail. Pt would like to start nuvaring. She is aware of the risks and benefits. She does not have any medical condition that is contraindi cated with the use of estrogen containing control. Pt will place the nuvaring on the first saturday following the start of her period. She is aware it is not effective for control the first month. She is also aware of the importance of timely insertion and removal. Encouraged use of condoms as the nuvaring does not protect against STD's. Will return in 3 months for med check. Consent was read and signed. Pt verbalized understand ing. Time spent in visit is a total of 40 mins with at least 50% of visit consisting of counseling and review of plan of care. [id number] Caden Gao MD [place] [address] [address] 11/15/2023 10:54:49 11/15/2023 11:39:31 Bacterial vaginosis [id number] N76.0 Vulvovaginitis [id number] N76.0 38-year-ol d female presents for vulvar/ vaginal odor and irritation . She is both odor with great discharge and severe vulvar irritation with the affected skin. She reports redness of the vulva. Examinatio n revealed vulvar erythema and a normal distal vagina. Not much discharge noted. We agreed to treat for both vulvovagin itis and BV. She is prescribed Flagyl orally, a cream for the outside of the vulva. And we also treated with oral Diflucan. She was given precaution s and instructio ns for each medication . The risks, benefits, and alternativ es of each medication was explained. Spent over 30 minutes on the patient's care. [id number] Caden Gao MD [place] [address] [address] 10/21/2024 08:58:25 10/21/2024 10:57:25 Well woman health examination [id number] Z01.419 [id number] Annual gynecologi fannie exam performed. Patient will come back in a year unless there are new symptoms. Suggest Calcium with Vitamin D if not eating in diet. Patient advised to get annual flu shot. Recommend yearly physicals and perform monthly breast exams. Genetic testing is available for patients with family history of cancer. Engage in safe sexual practices, use condoms. Encouraged to have daily exercise. Avoid tobacco and illicit drugs, moderation of alcohol. If BMI greater than 25 dietary consult advised. If you have any questions please call or email. Pap smear- pap w/ HPV collected laboratory evaluation - PCP STI testing - declined Contracept ion care management [id number] Z30.9 Discussed progestero ne-only control methods that have less thromboemb olic risk factors; patient declined. Patient denies smoking tobacco.Hill ppy with Nuvaring; does not want to switch BC methods. Risks/bene fits reviewed.R efills sent x one year. Pain in fe male genitalia on intercourse [id number] N94.10 [id number] Discussed common possible causes of dyspareuni a, such as infection, vaginal dryness, and positionin g during intercours e.Recommen ded comfortabl e positions during intercours e and using lubricatio n as needed. 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 These therapies restore the topmost layer of vaginal cells and increase elasticity and connective tissue when used on a regular basis. R/B's and most common SE's were also reviewed with understand ing verbalized .Call if any insurance coverage issues. RTO x 3mos Vulvar/Med check Time spent in visit is a total of 30 mins with at least 50% of visit consisting of counseling and review of plan of care. Health Concerns Section Related Observation LastModified by Organization Detai ls LastModified Time None Recorded Concern Status LastModified by Organization Details LastModified Time None Recorded Advance Directives Directive N: Payers Insurance Date Sequence Insurance Name Policy Number Policy Mercado Covered Member ID Mercado Member ID Guarantor Name 10/18/2024 1 [facility] [id number] Greyson García [id number] Marge García 11/14/2023 1 [facility] [id number] Greyson García [id number] Marge García Notes Date Note Type Note Provider Name and Address Organization Details Recorded Time 3 text/html Annual GYNReported by PatientHistoryFor history, patient reportsplanning in the near future.Genitourinary symptomsFor menstrual cycle, patient reportsnormal menses. For urinary symptoms, patient reportsno hematuriaandno incontinence. For vulva, patient reportsno genital lesion. For vagina, patient reportsnormal vaginal discharge.Breast symptomsFor breast, patient reportsno breast pain,no breast lump, andno nipple discharge.ContraceptionFo r current contraception, patient reportsbirth control not practiced.Endocrine symptomsFor sexual complaints, patient reportsno sexual complaints,no pain during intercourse, andnormal libido. For menopausal symptoms, patient reportsno menopausal symptomsandnormal vaginal lubrication.Psychological symptomsFor psychological symptoms, patient reportsno depression,no anxiety, andno pmdd.Preventative measuresFor preventive measures, patient reportsencourage self breast examination,encourage regular exercise,encourage no tobacco use,encourage regular mammograms starting age 40, andfollowed with yearly pap smears. Caprice Ivory, [facility]- [address], [place], [address], [facility] 08/24/2022 11:57:31 3 text/html 37yopresents for initial weight management consultationweight gain has been associated with family and work changeshe has tried weight watchers, noom, [place] weight loss - lost weight with all methods but they were not sustainableeats breakfast most days but then does not eat again until she gets home from work for dinner. Often eats [employer] breakfast sandwiches for breakfast on the way to work, for dinner eats quick meals like pizza. She is very busy with her 2 children and works, has not been able to find the time to meal prep.binge eating about 4-5 times per weekno current exercisesleeps 7-8 hours a night, occasional snoring past medical hx: gallbladder stonespast surgical hx: cholecystotomymedications : citalopramnever smoker, occasional alcohol, never drug usefam hx: obesity, diabetes, HTN, heart diseasenormal monthly periods, currently TTC GIGI Reyes [address], [place], [address], [facility] 10/22/2022 14:40:13 3 text/html ROS as noted in the HPI Here today for contraception consult. GIGI Howell- [address], [place], [address], [facility] 04/26/2023 12:38:50 4 text/html Vaginal/Vulvar ProblemReported by Patient 38-year-old female presents for vulvar/ vaginal odor and irritation. She is both odor with great discharge and severe vulvar irritation with the affected skin. She reports redness of the vulva. Examination revealed vulvar erythema and a normal distal vagina. Not much discharge noted. We agreed to treat for both vulvovaginitis and BV. She is prescribed Flagyl orally, a cream for the outside of the vulva. And we also treated with oral Diflucan. She was given precautions and instructions for each medication. The risks, benefits, and alternatives of each medication was explained. Spent over 30 minutes on the patient's care. Caden Gao MD [address], [place], [address], [facility] 11/15/2023 11:38:19 5 text/html Annual GYNReported by PatientGenitourinary symptomsFor menstrual cycle, patient reportsnormal menses. For urinary symptoms, patient reportsno hematuriaandno incontinence. For vulva, patient reportsno genital lesion. For vagina, patient reportsnormal vaginal discharge.Breast symptomsFor breast, patient reportsno breast pain,no breast lump, andno nipple discharge.ContraceptionFo r current contraception, patient reportsnuvaring.Endocrine symptomsFor sexual complaints, patient reportspain during intercoursebut reportsno sexual complaintsandnormal libido. For menopausal symptoms, patient reportshot flashesandinadequacy of lubrication of vaginal mucosa.Psychological symptomsFor psychological symptoms, patient reportsno depression,no anxiety, andno pmdd.Preventative measuresFor preventive measures, patient reportsencourage self breast examination,encourage regular exercise,encourage no tobacco use, andencourage regular mammograms starting age 40. Patient presents for annual well woman exam.Patient reports worsening vaginal dryness and dyspareunia over the past year.Patient tearful today regarding these symptoms.Reports occasional hot flashes and night sweats. Patient currently using Nuvaring for contraception and reports that she likes this method. CARMELITA HEDRICK, KEITH [address], [place], [address], [place] [facility] 10/21/2024 10:54:44 OBGyn Episode No OBEpisode recorded.
--- OUTSIDE RECORDS SUMMARY | 2025-03-02 16:08 | XMS_ITS | Clinical Summary ---
Author Organization [facility] [place] Address [address] [place] [address] Care Team Providers Care Well Shooter Name Role Phone Unavailable Primary Care Provider Unavailabl e Source Comments [facility] [place],non-[facility] Affiliates and Associated Physician Practices is amultiple site organization consisting of ambulatory clinics and hospital sitesin [place] and [place]. This disclosure is being madepursuant to the Care Everywhere program and may not contain all information available regarding this patient. 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
== END 2025-03-02 14:32 | disposition home or self-care (01) ==
PROVIDERS: PCP Family Medicine; Visit Provider Nurse Practitioner Family
DX: R16.2 Hepatomegaly with splenomegaly, not elsewhere classified (principal); K76.0 Fatty (change of) liver, not elsewhere classified; K76.9 Liver disease, unspecified; R79.89 Other specified abnormal findings of blood chemistry
CPT/HCPCS: 74183; A9577